=== PATIENT | female | born 1955 | race Caucasian/White ===

== ENCOUNTER 2019-11-11 13:22 | Inpatient (IN) | payer OTHER ==
[2019-11-11] MEDS ORDERED: Lorazepam 2 MG/ML VIAL ONE ×3 (13:29→16:23)
[2019-11-11] MEDS ORDERED: Haloperidol Lactate 5 MG/ML VIAL ONE (13:33)
[2019-11-11] MEDS ORDERED: diphenhydrAMINE 50 MG/ML VIAL ONE (13:33)
[2019-11-11] MEDS ORDERED: Acetaminophen 650 MG Suppository ONE (13:42)
[2019-11-11] MEDS ORDERED: Vancomycin 1 GM/200 ML BAG ONE (13:42)
[2019-11-11 13:51] LABS: #Lymphocytes 0.9 thou/uL (1.20-3.40); #Monocytes 0.6 thou/uL (0.11-0.59); #Neutrophils 8.7 thou/uL (1.40-6.50); %Basophils 0.2 % (0.0-1.0); %Lymphocytes 8.6 % (21.0-51.0); %Monocytes 5.7 % (0.0-10.0); %Neutrophils 85.5 % (42.0-75.0); Hemoglobin 9.4 g/dL (12.0-16.0); Mean Corpuscular HGB CONC 31.8 g/dL (32.0-36.0); Mean Corpuscular Hemoglobin 25.6 pg (27.0-31.0); Mean Corpuscular Volume 80.3 fL (78.0-98.0); Mean Platelet Volume 10.6 fL (7.4-10.4); Platelet Count 122 thou/uL (130-400); RBC Distribution Width 15.2 % (11.5-14.5); Red Blood Cell (RBC) Count 3.69 mill/uL (4.20-5.40); White Blood Cell (WBC) Count 10.2 thou/uL (4.8-10.8)
[2019-11-11] MEDS ORDERED: Clindamycin/D5W 600 MG in Premix Bag 1 BAG IVPB SCH (14:00)
--- NOTE | 2019-11-11 14:15 | CT ---
Exam: Head CT without contrast HISTORY: Nausea. Vomiting. Diarrhea. Altered mental status COMPARISON: 11/15/2009 FINDINGS: Hemorrhage: No intraparenchymal hemorrhage or extra-axial hematoma. Brain parenchyma: Cortical mcneil-white matter differentiation is preserved. No mass effect or midline shift. Basilar cisterns are patent.Minimal chronic small vessel ischemic changes of white matter Ventricular system: Ventricles and sulci are patent and symmetric. Calvarium: Intact. Sinuses and mastoid air cells: Adequate aeration. IMPRESSION: No acute intracranial process.
[2019-11-11 14:16] LABS: Acetaminophen Less than 6.0 mcg/mL (10.0-30.0); Alcohol Less than 10 mg/dL (Less than 10); Salicylate Less than 8.0 mg/dL (15.0-30.0)
[2019-11-11 14:17] LABS: ALT (SGPT) 36 U/L (8-55); AST (SGOT) 60 U/L (5-34); Albumin 3.5 g/dL (3.4-4.8); Alkaline Phosphatase 127 U/L (40-110); Anion Gap 14 mmol/L (10-20); BUN (Urea Nitrogen) 30 mg/dL (9.8-20.1); Bilirubin, Total 1.9 mg/dL (0.2-1.2); Calc. Creatinine Clearance 0 mL/min (70-130); Calcium 8.9 mg/dL (7.8-10.44); Carbon Dioxide 21 mmol/L (23-31); Chloride 109 mmol/L (98-107); Estimated GFR-MDRD 30; Globulin 3.4 g/dL (2.4-3.5); Glucose 165 mg/dL (80-115); Potassium 4.2 mmol/L (3.5-5.1); Protein, Total 6.9 g/dL (6.0-8.3); Sodium 140 mmol/L (136-145)
--- NOTE | 2019-11-11 14:20 | RAD ---
Chest AP view INDICATION: History of fever COMPARISON: November 28, 2010 FINDINGS: Lungs: There is bilateral perihilar interstitial and groundglass opacities. Cardiac silhouette: There is moderate to prominent cardiomegaly Pulmonary vasculature: There is moderate pulmonary vascular congestion Pleural spaces: There are small bilateral pleural effusions Upper abdomen: No abnormality seen. Osseous structures: There is postprocedural change of a midline sternotomy. No acute fracture or sub luxation demonstrated. Additional findings: None. IMPRESSION: Findings suspicious for [id number] CHF
[2019-11-11 14:23] LABS: Bilirubin Negative (Negative); Blood, Urine Trace (Negative); Clarity Turbid (Clear); Glucose, Urine (Dipstick) Normal (Negative); Ketone, Urine Negative (Negative); Leukocyte Negative Leu/uL (Negative); Nitrite Negative (Negative); Protein, Urine (Dipstick) 300 mg/dL (Neg-Trace); Specific Gravity, Urine 1.017 (1.002-1.036); Squamous Epithelial 0-3 HPF (0-3); Urobilinogen 3 mg/dL (Less than 2); WBC/HPF 0-3 HPF (0-3)
[2019-11-11 14:32] LABS: Amphetamine Not Detected (NotDetected); Barbiturates Screen Not Detected (NotDetected); Benzodiazepine Screen Not Detected (NotDetected); Cocaine Metabolite Screen Detected (NotDetected); Medtox Control Line Valid? VALID (VALID); Medtox Reader # READER 1; Methadone Not Detected (NotDetected); Methamphetamine Not Detected (NotDetected); Opiate Screen Not Detected (NotDetected); Oxycodone Screen Not Detected (NotDetected); Phencyclidine (PCP) Not Detected (NotDetected); THC/Cannabinoid Screen Not Detected (NotDetected); Tricyclic Screen Not Detected (NotDetected)
[2019-11-11 14:36] LABS: Bacteria/HPF None Seen HPF (None Seen)
[2019-11-11 15:41] LABS: SARS-CoV-2 NAA Rapid Test Not Detected (NotDetected)
[2019-11-11 16:43] LABS: Lactic Acid 3.1 mmol/L (0.5-2.2)
[2019-11-11] MEDS ORDERED: Ketorolac Tromethamine 30 MG/ML VIAL ONE (17:15)
[2019-11-11] MEDS ORDERED: Acetaminophen 650 MG Suppository PR PRN (18:54)
[2019-11-11] MEDS ORDERED: Ondansetron ODT 4 MG TAB PO PRN (18:54)
[2019-11-11] MEDS ORDERED: Ketorolac Tromethamine 30 MG/ML VIAL IVP PRN ×2 (18:54→18:57)
[2019-11-11] MEDS ORDERED: Acetaminophen 500 MG TAB PO PRN (18:54)
[2019-11-11] MEDS ORDERED: Ondansetron PF 4 MG/2 ML Vial IVP PRN (18:54)
[2019-11-11] MEDS ORDERED: Sodium Chloride 0.9% 1,000 ML IV SCH ×2 (19:15→20:00)
[2019-11-11] MEDS ORDERED: Aztreonam 2 GM in Sodium Chloride 0.9% 100 ML IVPB SCH (19:15)
[2019-11-11 19:35] LABS: INR-International Normal Ratio 1.9; Prothrombin Time 21.7 sec (12.0-14.7)
[2019-11-11] MEDS: Sodium Chloride 0.9% 1,000 ML IV SCH (20:13)
--- NOTE | 2019-11-11 20:14 | HP ---
PRIMARY CARE PROVIDER: Mariah Iniguez, nurse practitioner, [facility], [place], [place]. CHIEF COMPLAINT: Altered mental status. HISTORY OF PRESENT ILLNESS: This is a 64-year-old female, who presents to [facility] after family became concerned that the patient was confused, staring into space and minimally responsive to voice and tactile stimulation. The provides the majority of the history as well as review of electronic medical record and discussions with the emergency room attending as the patient is currently unable to provide any coherent history due to altered mental status. reports low-grade fever with questionable diarrhea in the last 24 hours. No travel history or exposure per the patient's . The patient began exhibiting symptoms as stated previously in the last 24 hours. No change to her chronic medication regimen or exposure history per family report. No unilateral weakness was noted, but the patient's states she was not acting appropriately, sitting on the couch, sleeping most of the last 24 hours. No history of fall, trauma reported, chest pain, or nausea or vomiting. In the emergency room, the patient underwent general evaluation and was noted with altered mental status as well as combativeness and agitation, requiring chemical sedation with lorazepam, Benadryl, and Haldol. The patient was also given intravenous normal saline x2 L as the patient was exhibiting evidence of hyperthermia with a temperature of 105 degrees Fahrenheit and signs of sepsis. Urine drug screen was also performed showing cocaine metabolites. Due to the concern for infectious process, the patient was given broad-spectrum antibiotic coverage with clindamycin and vancomycin. The patient was transferred to the intermediate care unit for further evaluation and close supervision. PAST MEDICAL HISTORY: 1. Chronic anticoagulation with Coumadin due to aortic valve replacement. 2. Coronary artery disease. 3. Aortic valvular heart disease. 4. Hypertension. 5. Chronic epilepsy. PAST SURGICAL HISTORY: 1. Status post aortic valve replacement x2. 2. Status post pacemaker placement with subsequent removal. 3. Status post hysterectomy. CURRENT MEDICATIONS: 1. Carvedilol 12.5 mg p.o. b.i.d. 2. Lasix 40 mg p.o. b.i.d. 3. Protonix 20 mg p.o. daily. 4. Coumadin 7.5 mg p.o. daily. 5. Zonisamide 200 mg p.o. b.i.d. ALLERGIES: CEPHALOSPORINS, CODEINE, AND PENICILLIN. FAMILY HISTORY: No inheritable diseases per family report. SOCIAL HISTORY: Resides in the [place], [place] area. No current alcohol, tobacco, or illicit drug use. . Full code status per report. REVIEW OF SYSTEMS: Unobtainable due to the patient's altered mental status. PHYSICAL EXAMINATION: VITAL SIGNS: On admission, blood pressure 140/91, pulse 106, respiratory rate 36, temperature 105.5 degrees Fahrenheit rectally, and O2 saturation 96% on room air. GENERAL APPEARANCE: This is a 64-year-old female, obtunded, minimally responsive to painful stimuli, in moderate distress. HEENT: Pupils are equal, round, and reactive to light and accommodation. Extraocular muscles are intact. Pupils are 5 mm and reactive to light and accommodation. No scleral icterus. No conjunctival injection. Nares patent. OP is clear. Teeth in fair repair. Oral mucosa dry. NECK: Supple. No cervical adenopathy. No thyromegaly. No carotid bruits. No JVD appreciated. Right external jugular venous catheter in place. CHEST: Lungs are clear to auscultation bilaterally. Positive tachypnea. CARDIOVASCULAR: S1 and S2 with 2/6 systolic ejection murmur in the right upper sternal border. Distant heart sounds. ABDOMEN: Rounded, soft, nontender, and nondistended. Bowel sounds are positive in all 4 quadrants. There is no hepatosplenomegaly. No abdominal bruits. No rebound or guarding appreciated. EXTREMITIES: Warm and dry with fair turgor. No clubbing, cyanosis, or asymmetric edema appreciated. Pulses palpable distally at the dorsalis pedis, posterior tibial, and popliteal arteries bilaterally. Capillary refill less than 2 seconds. NEUROLOGIC: Obtunded, unresponsive to painful and verbal stimuli. PERTINENT LABORATORY AND X-RAY FINDINGS: Sodium 140, potassium 4.2, chloride 109, CO2 of 21, BUN 30, creatinine 1.71, estimated GFR of 30, glucose 165, lactic acid level ranged between 2.5 to 3.1, and calcium 8.9. Total bilirubin 1.9, AST 60, ALT of 36, and alkaline phosphatase 127. CBC showed a white blood cell count of 10.2, hemoglobin 9.4, hematocrit 30, and platelet count 122 with 86% neutrophils. Urinalysis showed turbid specimen with specific gravity 1.017, positive protein, trace blood. Negative leukocyte esterase, 3+ amorphous crystals. Urine drug screen dated 11/11/2019, positive for cocaine metabolites. COVID-19 not detected on 11/11/2019. Portable chest x-ray dated 11/11/2019, showed bilateral perihilar interstitial prominence. Moderate cardiomegaly. CT of the brain without contrast dated 11/11/2019, showed no acute intracranial process. EKG dated 11/11/2019, by my interpretation shows atrial fibrillation with controlled ventricular response, heart rates in the low 100s. Normal axis. No acute ST-T wave changes appreciated. ASSESSMENT AND PLAN: 1. Sepsis syndrome. Exact etiology unclear. Question of pulmonic versus urinary tract source. We will continue broad-spectrum IV antibiotic therapy with vancomycin 1 g IV q.24 hours with additional aztreonam 2 g IV q.8 hours with additional metronidazole 500 mg IV q.8 hours. Blood and urine cultures pending. Continue general stroke protocol. Continue intravenous normal saline at 125 mL/h. 2. Acute metabolic encephalopathy secondary to sepsis syndrome. We will continue general supportive management as outlined in #1. CT imaging of the brain negative. Continue to monitor serial neuro exams. 3. Acute kidney injury on chronic kidney disease, stage 3. Continue IV fluids as outlined previously. Avoid nephrotoxic agents and limit contrast exposure. Repeat creatinine in the a.m. 4. Chronic atrial fibrillation with chronic anticoagulation. Continue supportive management. Check PT/INR daily. Resume Coumadin when tolerating p.o. intake. 5. Cocaine positive urine drug screen. We will confirm whether the patient has a history of drug use. 6. Chronic normocytic anemia. No current evidence to suggest acute blood loss. Serial H and H monitoring. 7. Prophylaxis. SCDs while in bed. Pepcid 20 mg IV q.12 hours. PT evaluation when able to ambulate. 8. Code status: Full. Surrogate medical decision maker is the patient's spouse. Job ID: [id number]
[2019-11-11 20:20] VITALS: BMI 26.5
[2019-11-11] MEDS ORDERED: Vancomycin HCl 1 GM in Sodium Chloride 0.9% 250 ML 300 ML IVPB SCH (21:00)
[2019-11-11] MEDS ORDERED: Famotidine/PF 20 mg/2ml Vial SLOW IVP SCH (21:00)
[2019-11-11] MEDS: metroNIDAZOLE 500 MG in Premix Bag 1 BAG IVPB SCH (21:22)
[2019-11-11] MEDS: Famotidine/PF 20 mg/2ml Vial SLOW IVP SCH (21:22)
[2019-11-12] MEDS ORDERED: Vancomycin 1 GM in Premix Bag 1 BAG IVPB SCH (02:00)
[2019-11-12 03:48] LABS: INR-International Normal Ratio 1.9; Prothrombin Time 21.7 sec (12.0-14.7)
[2019-11-12 03:51] LABS: ALT (SGPT) 35 U/L (8-55); AST (SGOT) 49 U/L (5-34); Albumin 2.9 g/dL (3.4-4.8); Alkaline Phosphatase 102 U/L (40-110); Anion Gap 16 mmol/L (10-20); BUN (Urea Nitrogen) 39 mg/dL (9.8-20.1); Bilirubin, Total 1.8 mg/dL (0.2-1.2); Calc. Creatinine Clearance 29 mL/min (70-130); Calcium 7.9 mg/dL (7.8-10.44); Carbon Dioxide 15 mmol/L (23-31); Chloride 114 mmol/L (98-107); Estimated GFR-MDRD 25; Globulin 2.7 g/dL (2.4-3.5); Glucose 135 mg/dL (80-115); Magnesium 1.7 mg/dL (1.6-2.6); Potassium 3.5 mmol/L (3.5-5.1); Protein, Total 5.6 g/dL (6.0-8.3); Sodium 141 mmol/L (136-145)
[2019-11-12] MEDS ORDERED: Aztreonam 2 GM in Sodium Chloride 0.9% 100 ML IVPB SCH (04:00)
[2019-11-12 05:06] LABS: Band 14 % (5-11); Hemoglobin 8.2 g/dL (12.0-16.0); Hypochromia SLIGHT = 6-15 cells (100X) (0-5/hpf); Lymphocytes 5 % (21-51); MDiff Complete? YES; Mean Corpuscular HGB CONC 32.1 g/dL (32.0-36.0); Mean Corpuscular Volume 81.1 fL (78.0-98.0); Mean Platelet Volume 11.3 fL (7.4-10.4); Monocytes 2 % (0-10); Neutrophil 79 % (42-75); Platelet Count 71 thou/uL (130-400); Platelet Morphology Comment Appears Decreased; RBC Distribution Width 15.1 % (11.5-14.5); Red Blood Cell (RBC) Count 3.16 mill/uL (4.20-5.40)
[2019-11-12] MEDS: metroNIDAZOLE 500 MG in Premix Bag 1 BAG IVPB SCH ×3 (05:44→20:17)
[2019-11-12] MEDS ORDERED: Lorazepam 2 MG/ML VIAL SLOW IVP SCH (05:45)
[2019-11-12] MEDS: Sodium Chloride 0.9% 1,000 ML IV SCH ×3 (05:46→20:17)
[2019-11-12] MEDS ORDERED: Magnesium 2 GM/50 ML 2 GM in Premix Bag 1 BAG IVPB SCH (06:30)
[2019-11-12] MEDS ORDERED: Lorazepam 2 MG/ML VIAL SLOW IVP PRN ×2 (10:30→17:28)
[2019-11-12] MEDS ORDERED: Furosemide 20 MG/2 ML VIAL SLOW IVP SCH (10:45)
--- NOTE | 2019-11-12 10:47 | PDOC.HOSPP ---
- Subjective Encounter Date: 11/12/19 Encounter Time: 10:35 Subjective: f/u for AMS/Sepsis/Dyspnea with 2/2 blood cx showing gm+ cocci receiving Vancomycin/Aztreonam/Metronidazole. nursing reports SOB/cardiac ectopy, agitation and remains in soft restraints. - Objective Vital Signs & Weight: Vital Signs (12 hours) Temp 11/12/19 07:31 98.0 F 11/12/19 04:00 98.4 F 11/12/19 00:05 97.0 F L Weight Weight 145 lb Most Recent Monitor Data Heart Rate from ECG 115 NIBP 156/112 NIBP BP-Mean 126 Respiration from ECG 32 SpO2 100 I&O: 11/11/19 11/12/19 11/13/19 06:59 06:59 06:59 Intake Total 2374 Output Total 300 Balance 2074 Result Diagrams: 11/12/19 03:17 11/12/19 03:17 Additional Labs: Microbiology 11/11/19 13:55 Venous blood - Left Arm Blood Culture - Preliminary Staphylococcus aureus 11/11/19 13:36 Venous blood - Right Arm Blood Culture - Preliminary Gram Positive Cocci Laboratory Tests 11/11/19 11/11/19 11/11/19 13:36 13:36 13:36 Hgb 9.4 L Plt Count 122 L Neutrophils % 85.5 H Neutrophils % (Manual) Band Neuts % (Manual) INR Carbon Dioxide 21 L BUN 30 H Creatinine 1.71 H Lactic Acid 2.5 H Magnesium Total Bilirubin 1.9 H AST 60 H U Cocaine Metab Screen SARS-CoV-2 Rap RNA(RT-PCR) 11/11/19 11/11/19 11/11/19 13:50 14:30 16:17 Hgb Plt Count Neutrophils % Neutrophils % (Manual) Band Neuts % (Manual) INR Carbon Dioxide BUN Creatinine Lactic Acid 3.1 H Magnesium Total Bilirubin AST U Cocaine Metab Screen Detected H SARS-CoV-2 Rap RNA(RT-PCR) Not Detected 11/11/19 11/11/19 11/12/19 19:13 19:13 03:17 Hgb Plt Count Neutrophils % Neutrophils % (Manual) Band Neuts % (Manual) INR 1.9 Carbon Dioxide BUN Creatinine Lactic Acid 1.0 Magnesium 1.7 Total Bilirubin 1.8 H AST 49 H U Cocaine Metab Screen SARS-CoV-2 Rap RNA(RT-PCR) 11/12/19 11/12/19 03:17 03:17 Hgb Plt Count Neutrophils % Neutrophils % (Manual) 79 H Band Neuts % (Manual) 14 H INR 1.9 Carbon Dioxide BUN Creatinine Lactic Acid Magnesium Total Bilirubin AST U Cocaine Metab Screen SARS-CoV-2 Rap RNA(RT-PCR) Radiology Reviewed by me: Yes (PCXR - pending) EKG Reviewed by me: Yes (Tele - ? A-fib, bigeminy) Hospitalist ROS - Medication Medications: Active Medications Generic Name Dose Route Start Last Admin Trade Name Freq PRN Reason Stop Dose Admin Famotidine 20 mg 11/11/19 21:00 11/11/19 21:22 Pepcid SLOW IVP 20 mg 2100 ROBERT Administration Aztreonam 2 gm/ Sodium 100 mls @ 100 mls/hr 11/12/19 04:00 11/12/19 03:56 Chloride IVPB 100 mls 0400,1200,2000 ROBERT Administration Metronidazole 500 mg/ Device 100 mls @ 100 mls/hr 11/11/19 21:00 11/12/19 05: 44 IVPB 100 mls 0500,1300,2100 ROBERT Administration Sodium Chloride 1,000 mls @ 125 mls/hr 11/11/19 20:00 11/12/19 05:46 Normal Saline 0.9% IV Not Given .Q8H ROBERT Vancomycin HCl 1 gm/ Device 200 mls @ 133.333 mls/hr 11/12/19 02:00 11/12/19 02:20 IVPB 200 mls 0200 ROBERT Administration Ketorolac Tromethamine 15 mg 11/11/19 18:57 11/11/19 21:23 Toradol IVP 11/16/19 18:55 15 mg Q6H PRN Administration Pain - Exam General Appearance: ill appearing General - other findings: opens eyes, responds to questions briefly Eye: PERRL, anicteric sclera ENT: normocephalic atraumatic, no oropharyngeal lesions Neck: supple, symmetric, no JVD, no thyromegaly, no lymphadenopathy Heart: no gallops, no rubs, normal peripheral pulses, irregular Heart - other findings: S1, S2 Respiratory: tachypneic Respiratory - other findings: diminished bilat, occ wheeze Gastrointestinal: soft, non-tender, non-distended, normal bowel sounds, no palpable masses Gastrointestinal - other findings: Hernandez with dark urine/sediment Extremities: no cyanosis, no clubbing, no edema Skin: normal turgor, no lesions Neurological: cranial nerve grossly intact Musculoskeletal: generalized weakness Psychiatric: oriented to person, flat affect, somnolent Hosp A/P (1) Sepsis Code(s): A41.9 - SEPSIS, UNSPECIFIED ORGANISM Status: Acute Plan: Gm + cocci and staph spp on initial blood cx, continue Vancomycin/Aztreonam/ Metronidazole, IVF's fluids held due to increased dyspnea (2) Acute metabolic encephalopathy Code(s): G93.41 - METABOLIC ENCEPHALOPATHY Status: Acute Plan: Persistent, continue Ativan 1mg IVP q4h PRN (3) Acute dyspnea Code(s): R06.00 - DYSPNEA, UNSPECIFIED Status: Acute Plan: ? etiology, repeat PCXR now, ABG reassuring currently, check BNP, check 2D echo (4) Acute kidney injury superimposed on CKD Code(s): N17.9 - ACUTE KIDNEY FAILURE, UNSPECIFIED; N18.9 - CHRONIC KIDNEY DISEASE, UNSPECIFIED Status: Acute Plan: Worsening level currently, avoid nephrotoxic meds, renal dosing on meds, serial creatinine (5) Metabolic acidosis Code(s): E87.2 - ACIDOSIS Status: Acute Plan: Multifactorial, continue mgmt as outlined above, consider bicarbonate if worsening renal function despite supportive mgmt (6) Cocaine use Code(s): F14.90 - COCAINE USE, UNSPECIFIED, UNCOMPLICATED Status: Acute (7) Chronic anticoagulation Code(s): 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
[2019-11-12 10:49] LABS: Actual Bicarbonate (HCO3a) 13.6 mEq/L (22-28); Base Excess (BEa) -10.3 mEq/L (-2.0 to +3.0); Calcium, Ionized (arterial) 1.16 mmol/L (1.12-1.30); Carboxyhemoglobin (COHb) 0.3 gm% (0.0-3.0); Hemoglobin (Hb) 9.6 g/dL (12.0-16.0); O2 Tension (PaO2), arterial 90.3 mmHg (> 80.0); Potassium - ABG Lab 3.92 mmol/L (3.70-5.30); pH, Arterial 7.37 (7.35-7.45)
[2019-11-12 10:50] LABS: ALV-art Gradient 136.255 (0-20); CO2 Tension 24.1 mmHg (35.0-45.0); Puncture Site RBA
--- NOTE | 2019-11-12 11:21 | RAD ---
Portable frontal chest radiograph: 11/12/2019 COMPARISON: 11/11/2019 HISTORY: Dyspnea FINDINGS: Stable midline sternotomy wires. Stable enlargement of the cardiac silhouette. Pulmonary va scular congestion persists. No pneumothorax is seen. Hazy interstitial opacity in the perihilar regions and both lung bases noted. Small bilateral pleural effusions are suspected, right greater agustin n left, more conspicuous than on the prior exam. IMPRESSION: Findings suggesting pulmonary edema, slightly worsened when compared to the prior exam. S uperimposed perihilar and/or bibasilar infection cannot be excluded. Follow-up to resolution advised.
[2019-11-12] MEDS: Aztreonam 1 GM in Sodium Chloride 0.9% 100 ML IVPB SCH ×2 (11:35→20:15)
[2019-11-12 13:33] LABS: Actual Bicarbonate (HCO3a) 13.9 mEq/L (22-28); Base Excess (BEa) -10.3 mEq/L (-2.0 to +3.0); Calcium, Ionized (arterial) 1.15 mmol/L (1.12-1.30); Carboxyhemoglobin (COHb) 0.3 gm% (0.0-3.0); Hemoglobin (Hb) 9.1 g/dL (12.0-16.0); O2 Tension (PaO2), arterial 114.2 mmHg (> 80.0); Potassium - ABG Lab 3.98 mmol/L (3.70-5.30); pH, Arterial 7.36 (7.35-7.45)
[2019-11-12 13:56] LABS: CO2 Tension 25.4 mmHg (35.0-45.0)
[2019-11-12 13:57] LABS: Puncture Site RRA
[2019-11-12] MEDS: Midazolam HCl 2 mg/2 ml Vial ONE ×2 (14:45→14:46)
[2019-11-12] MEDS ORDERED: Propofol 1,000 MG/100 ML VIAL IV ONE (14:48)
--- NOTE | 2019-11-12 16:10 | RAD ---
PORTABLE CHEST ONE VIEW: 11/12/19 at 2:50 p.m. HISTORY: Respiratory failure. COMPARISON: Earlier exam of 01/04 and from same date. FINDINGS: There is an endotracheal tube with tip just below the level of the clavicular heads. The orogastric t ube the tip of which is in the position of the distal esophagus. The remainder of the exam is otherwise stable. Discussed over the telephone with the patient's nurse, Amanda New at 3:49 p.m. POS: OFF
[2019-11-12 16:26] LABS: Actual Bicarbonate (HCO3a) 14.7 mEq/L (22-28); Base Excess (BEa) -10.5 mEq/L (-2.0 to +3.0); CO2 Tension 29.8 mmHg (35.0-45.0); Calcium, Ionized (arterial) 1.17 mmol/L (1.12-1.30); Carboxyhemoglobin (COHb) 0.4 gm% (0.0-3.0); Hemoglobin (Hb) 8.5 g/dL (12.0-16.0); O2 Tension (PaO2), arterial 214.8 mmHg (> 80.0); Potassium - ABG Lab 3.73 mmol/L (3.70-5.30); pH, Arterial 7.31 (7.35-7.45)
[2019-11-12 16:28] LABS: Puncture Site LRA
[2019-11-12] MEDS ORDERED: Rocuronium Bromide 10 MG/ML (10ML VIAL) ONE (16:30)
[2019-11-12] MEDS ORDERED: Amiodarone 450 MG, Admixture Fee 1 EACH in Dextrose 5% in Water 250 ML IVPB SCH (17:00)
[2019-11-12] MEDS ORDERED: Carvedilol 6.25 MG TAB PO SCH (17:00)
[2019-11-12] MEDS ORDERED: Warfarin Sodium 7.5 MG TAB PO SCH (17:00)
[2019-11-12] MEDS ORDERED: Ventilator Sedation Protocol 1 EACH FS ONE (17:14)
[2019-11-12] MEDS ORDERED: Amiodarone 150 MG, Admixture Fee 1 EACH in Dextrose 5% in Water 100 ML IVPB SCH (17:15)
[2019-11-12] MEDS ORDERED: Propofol 1,000 MG/100 ML VIAL IV PRN (17:28)
[2019-11-12] MEDS ORDERED: Fentanyl BOLUS 250 ML IVPB PRN (17:28)
[2019-11-12] MEDS ORDERED: DISCONTINUE PREVIOUS NARCOTIC PAIN MEDICATIONS AND BENZODIAZEPINES FS SCH (17:28)
[2019-11-12] MEDS ORDERED: Propofol BOLUS 1,000 MG/100 ML VIAL IV PRN (17:28)
[2019-11-12] MEDS ORDERED: fentaNYL Citrate/PF 2,000 MCG in Sodium Chloride 0.9% 60 ML IV SCH (17:28)
[2019-11-12] MEDS ORDERED: Morphine 2 MG/ML VIAL SLOW IVP PRN (17:28)
[2019-11-12] MEDS ORDERED: methylPREDNISolone Sod Succ/PF 125 MG/2 ML VIAL IVP SCH (17:30)
[2019-11-12 18:18] VITALS: BP 95/53
[2019-11-12] MEDS ORDERED: Norepinephrine 8 MG/0.9% NS 250 ML ONE (18:36)
[2019-11-12] MEDS ORDERED: Norepinephrine 8 MG/0.9% NS 250 ML IVPB SCH (19:02)
[2019-11-12] MEDS: Famotidine/PF 20 mg/2ml Vial SLOW IVP SCH (20:17)
[2019-11-12 20:48] VITALS: TEMP 97.8
--- NOTE | 2019-11-12 22:24 | CON ---
DATE OF CONSULTATION: HISTORY OF PRESENT ILLNESS: Ms. Marrero is a 64-year-old female, who apparently presented with altered mental status. The history was provided at the emergency room by the . Apparently, she had a febrile illness with diarrhea for a day prior to admission. The patient apparently presented with a temp of 105. The patient was subsequently admitted. I was consulted because of her presence in the intermediate care unit. PAST MEDICAL HISTORY: Remarkable for, 1. Aortic valve replacement, on Coumadin. 2. History of coronary artery disease. 3. History of hypertension. 4. History of seizure disorder. 5. History of two aortic valve replacements. 6. History of pacemaker and pacemaker removal. 7. Status post hysterectomy. MEDICATIONS: Prior to admission, 1. Coreg. 2. Lasix. 3. Protonix. 4. Coumadin. 5. Zonisamide. ALLERGIES: SHE REPORTS CEPHALOSPORIN, CODEINE, AND PENICILLIN ALLERGIES. FAMILY HISTORY: Negative for lung disease or inheritable diseases. SOCIAL HISTORY: She strongly denied using drugs when I asked her. She very quickly said no but when I asked her about smoking, she hedged on that answer. REVIEW OF SYSTEMS: Unremarkable and not really reliably obtainable because she is still confused when I examined her. PHYSICAL EXAMINATION: VITAL SIGNS: Temperature maximum since admission is this afternoon at 100.1. Blood pressure this morning was 128/58 at 9 o'clock. Heart rate was 115. HEENT: Pupils are equal. Sclerae are anicteric. NECK: Supple without lymphadenopathy. She appears much older than her age. LUNGS: Remarkable for tight wheezes diffusely. HEART: Regular rhythm. Rapid rate. ABDOMEN: Soft and nontender. EXTREMITIES: Without clubbing, cyanosis, or edema. IMAGING DATA: Chest radiograph was suggestive of pulmonary edema. She has sternotomy wires. Chest x-ray is also suggestive of right effusion. She has pulmonary artery engorgement. LABORATORY DATA: White count is 5, hemoglobin 8.2, and platelets 71,000. INR is 1.9. PH this morning 7.37, CO2 of 24, and PO2 of 90. Repeat blood gas at 0120 hours; pH of 7.36, CO2 of 25, and PO2 of 114. Post intubation blood gas; pH of 7.31, CO2 of 29, and PO2 of 214. Creatinine was 1.7 yesterday afternoon and is 2.03 this morning. Bilirubin is 1.8. AST and ALT were barely elevated. BNP was 4858. Albumin 2.9. Urinalysis showed significant proteinuria, 300 mg/dL. Drug screen surprisingly was positive for cocaine. COVID screen was negative. IMPRESSION: Metabolic acidosis, likely is multifactorial. She has never been here in the hospital, so we do not really have a cardiac history on her. Based on her radiograph and her clinical presentation, I suspect that we are dealing with primarily a cardiac issue, but given her temperature of 105 on presentation, a component of pneumonia or another infection cannot be ruled out. Her liver enzymes will need to be monitored. If her INR starts drifting down, she will need to be anticoagulated with Lovenox or heparin or likely heparin given her renal insufficiency. Her renal function will need to be monitored. It is my feeling that she would not tolerate continued observation and I recommended an intubation. This has subsequently been done successfully. She needs an echocardiogram. I will be happy to follow along with the other physicians caring for. Job ID: [id number]
--- NOTE | 2019-11-12 23:45 | EKG ---
Test Reason : Blood Pressure : / mmHG Vent. Rate : 119 BPM Atrial Rate : 119 BPM P-R Int : 000 ms QRS Dur : 110 ms QT Int : 328 ms P-R-T Axes : 000 096 090 degrees QTc Int : 461 ms Atrial fibrillation. Low voltage QRS Possible Anterolateral infarct , age undetermined Abnormal ECG No previous ECGs available Confirmed by Jabari SCHULER ([id number]) on 11/12/2019 11:44:55 PM Referred By: CARLI Confirmed By:Jabari SCHULER
--- NOTE | 2019-11-12 23:56 | EKG ---
Test Reason : Blood Pressure : / mmHG Vent. Rate : 110 BPM Atrial Rate : 110 BPM P-R Int : 216 ms QRS Dur : 114 ms QT Int : 368 ms P-R-T Axes : 000 076 009 degrees QTc Int : 498 ms Sinus tachycardia with 1st degree A-V block with frequent Premature ventricular complexes and Fusion complexes Low voltage QRS Borderline ECG When compared with ECG of 12-NOV-2019 02:32, (Unconfirmed) Sinus rhythm has replaced Junctional rhythm Non-specific change in ST segment in Lateral leads Confirmed by Jabari SCHULER ([id number]) on 11/12/2019 11:56:13 PM Referred By: CARLI Confirmed By:Jabari SCHULER
[2019-11-13] MEDS ORDERED: methylPREDNISolone Sod Succ/PF 125 MG/2 ML VIAL IVP SCH (09:00)
--- NOTE | 2019-11-13 10:29 | CON ---
DATE OF CONSULTATION: 11/12/2019 TIME: 1 hour and 30 minutes. SUBJECTIVE: The patient is a 64-year-old woman with a history aortic valve replacement, who presented with respiratory failure. The patient has previously undergone aortic valve replacement in 1993 and 1994. She also has a history of a pacemaker placement which had to be resected. The patient was apparently in good health until she was admitted with altered mental status. The patient developed respiratory failure and was emergently intubated. The patient unable to give a coherent history. PAST MEDICAL HISTORY: Significant for; 1. Aortic valve replacement. 2. Hypertension. 3. Epilepsy. 4. Seizure. PAST SURGICAL HISTORY: She has had aortic valve replacement x2, hysterectomy. MEDICATIONS: See nursing list. ALLERGIES: CODEINE, PENICILLIN, AND CEPHALOSPORIN. PHYSICAL EXAMINATION: GENERAL: This is an intubated woman. VITAL SIGNS: Blood pressure of 126/80, heart rate is 94. NECK: Shows no jugular venous distention. LUNGS: Have crackles bilateral. HEART: Regular rate and rhythm with a normal S1, S2 with a mechanical click and a 2/6 systolic murmur. ABDOMEN: Nondistended. EXTREMITIES: Trace edema. LABORATORY DATA: Sodium 141, potassium 3.5, chloride 114, bicarb 15, BUN 39, and creatinine 2.0. Her BNP was 4858. White blood cell count 5.0, hemoglobin 8.2, hematocrit 25.6, and her platelets are 71. Her INR was 1.9. Her EKG revealed her to have sinus tachycardia with first-degree AV block and premature ventricular contractions. Telemonitoring revealed nonsustained ventricular tachycardia. IMPRESSION: 1. Respiratory failure. 2. Ventricular tachycardia. 3. History of aortic valve replacement. 4. History of pacemaker placement. 5. Renal failure. 6. Severe cardiomyopathy. PLAN: This patient presents with acute respiratory failure. She developed nonsustained ventricular tachycardia. The patient was treated with IV amiodarone. An emergent echocardiogram was obtained which revealed a severe decrease in left ventricular systolic function. There were no obvious vegetations noted. The patient's blood cultures revealed Staph aureus. It is very possible she has Staph endocarditis. I have recommended the patient be transferred to [facility] for further evaluation and is a very high risk patient. We will follow this patient with you through her hospitalization. CRITICAL CARE TIME: 90 minutes. Job ID: [id number]
--- NOTE | 2019-11-13 13:10 | OP ---
DATE OF PROCEDURE: 11/12/2019 The patient was transferred to critical care unit. She was placed in the sitting position. She was given 1 mg Versed. Once she started to relax with the Versed, a bite block was placed in her mouth. Fiberoptic bronchoscope was at the bedside and was used to introduce a 7.5 endotracheal tube easily through her cords into her trachea. Her tracheobronchial tree was quickly inspected. The right lower lobe, right middle lobe, right upper lobe, left lower lobe, and left upper lobe were free of endobronchial lesions. There were no retained secretions or aspirated gastric contents seen. Post intubation chest x-ray is essentially unchanged. She was sedated for mechanical ventilation after that. CRITICAL CARE TIME: 40 minutes independent of the procedure performed. Job ID: [id number]
--- NOTE | 2019-11-13 14:22 | DIS ---
DATE OF ADMISSION: 11/11/2019 DATE OF DISCHARGE: 11/12/2019 This is a transfer care note. DATE OF TRANSFER: 11/12/2019. DISCHARGE DIAGNOSES: 1. Sepsis syndrome, secondary to Staphylococcus aureus species. 2. Acute metabolic encephalopathy, multifactorial. 3. Acute hypoxic respiratory failure, requiring intubation. 4. Acute kidney injury on chronic kidney disease. 5. Metabolic acidosis. 6. Cocaine use. 7. Chronic anticoagulation with Coumadin. 8. Severe cardiomyopathy with ejection fraction of 10% to 15%. 9. Status post aortic valve replacement x2, on chronic anticoagulation. CONSULTATIONS: 1. Dr. Bazan with Pulmonology/Critical Care Service. 2. Dr. Rafael Boogie with Cardiology Service. PERTINENT LABORATORY AND X-RAY FINDINGS: Creatinine ranged between 1.71 to 2.03. Estimated GFR ranged between 25 to 30. Carbon dioxide level ranged between 15 to 21. Lactic acid level ranged between 1.0 to 3.1. Magnesium level 1.7. AST 49, ALT of 35, total bilirubin 1.8. BNP 4859. CBC showed a white blood cell count ranged between 5.0 to 10.2, hemoglobin ranged between 8.2 to 9.4, platelet count ranged between 71 to 122. PT 21.7, INR 1.9 on 11/12/2019. ABG dated 11/12/2019, showed pH of 7.31, pCO2 of 30, pO2 of 215, bicarbonate 14.7, O2 saturation 99.5% on 50% FiO2 with SIMV. Urine drug screen dated 11/11/2019, positive for cocaine metabolites. Plasma alcohol level less than 10. [id number] RNA PCR not detected, 11/11/2019. Blood cultures x2 out of 2 positive for Staphylococcus aureus. Portable chest x-ray dated 11/11/2019, showed [id number] pulmonary edema. CT of the brain without contrast dated 11/11/2019, showed no acute intracranial process. Portable chest x-ray dated 11/12/2019, showed pulmonary edema, slightly worsened when compared to previous exam. 2D transthoracic echocardiogram dated 11/12/2019, showed ejection fraction of 10% to 15%. Markedly enlarged right atrium. Moderately enlarged right ventricle. Mccormick is akinetic. Mechanical aortic valve with periprosthetic leak. [id number] tricuspid regurgitation. No vegetations noted on the cardiac valves. HOSPITAL COURSE: The patient was initially admitted after presenting with altered mental status with multiple markers consistent with sepsis criteria and syndrome. The exact etiology and source unclear, suspicious for pulmonic etiology. The patient was placed on broad-spectrum IV antibiotic therapy with vancomycin, aztreonam, and metronidazole. The patient received fluid resuscitation per protocol and monitored for clinical response. The patient was also noted with metabolic encephalopathy associated with the presentation, waxing and waning mental status throughout the hospital course. The patient was noted subtherapeutic on INR evaluation in the context of chronic Coumadin therapy and initiated on a heparin infusion. She was initiated on amiodarone infusion after nonsustained ventricular tachycardia was noted on routine telemetry monitoring. The patient was also resumed on home dose of Coreg 12.5 mg b.i.d. The patient underwent evaluation by the Cardiology Service due to the nonsustained ventricular tachycardia, and arrhythmia noted on telemetry monitoring with eventual 2D transthoracic echocardiogram showing overall severely depressed ejection fraction in the 10% to 15% range. Due to the positive blood cultures showing Staphylococcus species in addition to severe cardiomyopathy and prior history of aortic valve replacement, the patient was deemed high risk and recommended for higher level of care. Coordination for [place] with [facility] services was coordinated with [facility] in [place], [place], and the patient was transported at approximately 21:45 p.m. on 11/12/2019 to [facility] in [place], [place]. Job ID: [id number]
--- NOTE | 2019-11-14 13:02 | EKG ---
Test Reason : Blood Pressure : / mmHG Vent. Rate : 107 BPM Atrial Rate : 115 BPM P-R Int : 000 ms QRS Dur : 112 ms QT Int : 376 ms P-R-T Axes : 000 048 108 degrees QTc Int : 501 ms Atrial fibrillation with rapid ventricular response with premature ventricular or aberrantly conducte d complexes Low voltage QRS Septal infarct , age undetermined Abnormal ECG Confirmed by SONAL ABAD ([id number]), slot editor KAY MONTAGUE ([id number]) on 11/14/2019 1:01:40 PM Referred By: Confirmed By:SONAL Smalls
== END 2019-11-12 21:45 | disposition short-term general hospital (02) | DRG 871 ==
LOC: ERS 13:22 → ERHOLD 15:48 → IMCU/EMU 18:14 → CCU 11-12 14:27
PROVIDERS: ADMIT Family Medicine; ATTEND Family Medicine
DX: A41.2 Sepsis due to unspecified staphylococcus (principal); G93.41 Metabolic encephalopathy; N17.9 Acute kidney failure, unspecified; I48.20 Chronic atrial fibrillation, unspecified; E87.2 Acidosis; Z20.828 Contact with and (suspected) exposure to other viral communicable diseases; A41.89 Other specified sepsis; N18.3 Chronic kidney disease, stage 3 (moderate); I25.10 Atherosclerotic heart disease of native coronary artery without angina pectoris; D64.9 Anemia, unspecified; I12.9 Hypertensive chronic kidney disease with stage 1 through stage 4 chronic kidney disease, or unspecified chronic kidney disease; F14.90 Cocaine use, unspecified, uncomplicated; G40.909 Epilepsy, unspecified, not intractable, without status epilepticus; Z95.2 Presence of prosthetic heart valve; Z79.01 Long term (current) use of anticoagulants; Z90.710 Acquired absence of both cervix and uterus; Z88.0 Allergy status to penicillin; Z88.1 Allergy status to other antibiotic agents; Z88.5 Allergy status to narcotic agent
CPT/HCPCS: 31624; 36415; 36416; 70450; 71045; 80053; 80306; 80307; 81003; 81015; 82805; 83605; 83735; 83880; 85007; 85025; 85027; 85610; 87040; 87077; 87149; 93005; 93010; 93306; 94002; 94640; J0282; J1200; J1630; J1885; J1940; J2060; J2250; J2704; J2930; J3010; J3370; J3475; J3490; J7050; J7070; J7620; S0028; U0002

== ENCOUNTER 2019-11-25 12:52 | Inpatient (IN) | payer OTHER ==
[2019-11-25] MEDS ORDERED: Labetalol HCl 100 MG/20 ML VIAL SLOW IVP PRN (20:01)
[2019-11-25] MEDS ORDERED: Ondansetron PF 4 MG/2 ML Vial IVP PRN (20:01)
[2019-11-25] MEDS ORDERED: Acetaminophen 325 MG TAB PO PRN (20:01)
[2019-11-25] MEDS ORDERED: cloNIDine 0.1 MG TAB PO PRN (20:01)
[2019-11-25] MEDS ORDERED: Guaifenesin DM 100-10/5 ML UDCUP PO PRN (20:01)
[2019-11-25] MEDS ORDERED: Promethazine HCl 12.5 MG in Sodium Chloride 0.9% 50 ML IVPB PRN (20:01)
[2019-11-25] MEDS ORDERED: hydrALAZINE 20 MG/ML VIAL SLOW IVP PRN (20:01)
[2019-11-25] MEDS ORDERED: Heparin 25,000 units/D5W 500 ML IVPB SCH (20:15)
[2019-11-25] MEDS ORDERED: Electrolyte Replacement Protoc 1 EACH EACH FS SCH (20:15)
[2019-11-25] MEDS ORDERED: Heparin 10,000 UNITS/ 10 ML VIAL SLOW IVP SCH (20:15)
--- NOTE | 2019-11-25 20:32 | PDOC.HHP ---
Hospitalist HPI - History of Present Illness Endocarditis History of Present Illness: Patient is a 64 year old female with PMH AVR x 2 on chronic anticoagulation, severe cardiomyopathy EF 10-15%, cocaine use, CKD who presents as transfer from [facility] for endocarditis. Patient was originally sent from here to [facility] on Nov 11 for LVAD evaluation, however, it appears she had septic shock and not cardiogenic shock. Workup there revealed infective endocarditis, blood culture positive for MSSA, cefazolin recommended till Dec 10. She has PICC in place, also had cocaine on previous drug screen screen, so they do not want to dc her home for IV abx. On heparin drip for mechanical valve, INR today 1.7. Cr 1.63. She is on Bumex 1 mg daily and amio 200 BID. Vitals stable. Patient in bed, no questions or concerns, wants diet, denies chest pain/shortness of breath. Sheis hard of hearing. Transfer documents reviewed, including medication list, notes, imaging reports. 100 pages total reviewed. Ancef dose is 2g q8h. TTE reveals LVEF 25-29%, mechanical avr. Hospitalist ROS - Review of Systems Constitutional: denies: fever, chills, sweats, weakness, malaise, other Eyes: denies: pain, vision change, conjunctivae inflammation, eyelid inflammation, redness, other ENT: denies: ear pain, ear discharge, nose pain, nose discharge, nose congestion, mouth pain, mouth swelling, throat pain, throat swelling, other Respiratory: denies: cough, dry, shortness of breath, hemoptysis, SOB with excertion, pleuritic pain, sputum, wheezing, other Cardiovascular: denies: chest pain, palpitations, orthopnea, paroxysmal noc. dyspnea, edema, light headedness, other Gastrointestinal: denies: nausea, vomiting, abdominal pain, diarrhea, constipation, melena, hematochezia, other Genitourinary: denies: dysuria, frequency, incontinence, hematuria, retention, other Musculoskeletal: denies: neck pain, shoulder pain, arm pain, back pain, hand pain, leg pain, foot pain, other Skin: denies: rash, lesions, evangelist, bruising, other Neurological: denies: weakness, numbness, incoordination, change in speech, confusion, seizures, other All other systems reviewed; all pertinent +/- noted in HPI/Subj - Medication Medications: medication list reviewed, see transfer documents for full list of discharge medications. Hospitalist History - Past Medical History Other Medical History: AVR on coumadin CAD HTN epilepsy - Past Surgical History Other Surgical History: s/p AVR x 2 pacemaker w/ subsequent removal hysterectomy - Family History Family History: reports: no pertinent history - Social History Smoking Status: Never smoker Alcohol: reports: None Drugs: reports: cocaine - Exam General Appearance: NAD, awake alert Eye: PERRL, anicteric sclera ENT: normocephalic atraumatic, no oropharyngeal lesions, moist mucosa Neck: supple, symmetric, no JVD, no thyromegaly, no lymphadenopathy, no carotid bruit Heart: RRR, no murmur, no gallops, no rubs, normal peripheral pulses Respiratory: CTAB, no wheezes, no rales, no ronchi, normal chest expansion, no tachypnea, normal percussion Gastrointestinal: soft, non-tender, non-distended, normal bowel sounds, no palpable masses, no hepatomegaly, no splenomegaly, no bruit Extremities: no cyanosis, no clubbing, no edema Extremities - other findings: picc in place Skin: normal turgor, no lesions, no rashes Neurological: cranial nerve grossly intact, normal sensation to touch, no weakness, no focal deficits, no new deficit Musculoskeletal: normal tone, normal strength, no muscle wasting Psychiatric: normal affect, normal behavior, A&O x 3 Hospitalist Results - Labs Result Diagrams: 11/25/19 20:25 11/25/19 20:25 Additional comment: all transfer documents, labs, imaging reports reviewed Hospitalist H&P A/P - Plan Plan: Patient is a 64 year old female with PMH AVR x 2 on chronic anticoagulation, severe cardiomyopathy EF 10-15%, cocaine use, CKD who presents as transfer from [facility] for endocarditis. # MSSA endocarditis # chronic systolic heart failure # sepsis secondry to MSSA # history of cocaine abuse Patient is a 64 year old female with PMH AVR x 2 on chronic anticoagulation, severe cardiomyopathy EF 10-15%, cocaine use, CKD who presents as transfer from [facility] for endocarditis. Patient was originally sent from here to [facility] on Nov 11 for LVAD evaluation, however, it appears she had septic shock and not cardiogenic shock. Workup there revealed infective endocarditis, blood culture positive for MSSA, cefazolin recommended till Dec 10. She has PICC in place, also had cocaine on previous drug screen screen, so they do not want to dc her home for IV abx. On heparin drip for mechanical valve, - admit to telemetry - continue ancef 2g q8h until 12/10 per transfer recommendations - continue recommended medications, bumex, amiodarone - heparin drip, continue coumadin and d/c heparin once therapeutic INR reached # CKD III - trend BMP, monitor for overload DVT ppx - heparin GI ppx full code
[2019-11-25 20:39] LABS: #Basophils 0.1 thou/uL (0.0-0.2); #Eosinphils 0.1 thou/uL (0.0-0.7); #Lymphocytes 1.5 thou/uL (1.20-3.40); #Monocytes 0.6 thou/uL (0.11-0.59); %Basophils 1.4 % (0.0-1.0); %Eosinophils 2.1 % (0.0-10.0); %Lymphocytes 23.2 % (21.0-51.0); %Monocytes 9.3 % (0.0-10.0); %Neutrophils 64.1 % (42.0-75.0); Hemoglobin 9.3 g/dL (12.0-16.0); Mean Corpuscular HGB CONC 31.1 g/dL (32.0-36.0); Mean Corpuscular Hemoglobin 25.4 pg (27.0-31.0); Mean Corpuscular Volume 81.9 fL (78.0-98.0); Mean Platelet Volume 10.6 fL (7.4-10.4); Platelet Count 85 thou/uL (130-400); RBC Distribution Width 15.7 % (11.5-14.5); Red Blood Cell (RBC) Count 3.64 mill/uL (4.20-5.40); White Blood Cell (WBC) Count 6.3 thou/uL (4.8-10.8)
[2019-11-25 20:43] LABS: INR-International Normal Ratio 1.9; Prothrombin Time 21.5 sec (12.0-14.7)
[2019-11-25 20:50] LABS: ALT (SGPT) Less than 7 U/L (8-55); AST (SGOT) 25 U/L (5-34); Alkaline Phosphatase 106 U/L (40-110); Anion Gap 13 mmol/L (10-20); BUN (Urea Nitrogen) 20 mg/dL (9.8-20.1); Bilirubin, Direct 0.4 mg/dL (0.1-0.3); Bilirubin, Total 0.6 mg/dL (0.2-1.2); Calc. Creatinine Clearance 37 mL/min (70-130); Calcium 8.7 mg/dL (7.8-10.44); Carbon Dioxide 23 mmol/L (23-31); Chloride 104 mmol/L (98-107); Estimated GFR-MDRD 35; Glucose 81 mg/dL (80-115); Magnesium 1.9 mg/dL (1.6-2.6); Potassium 4.1 mmol/L (3.5-5.1); Protein, Total 6.2 g/dL (6.0-8.3); Sodium 136 mmol/L (136-145)
[2019-11-25 20:51] LABS: Lactic Acid 0.7 mmol/L (0.5-2.2)
[2019-11-25] MEDS ORDERED: Heparin 5,000 UNITS/ML VIAL SC SCH (21:00)
[2019-11-25 21:04] LABS: PTT Greater than 250.0 sec (22.9-36.1)
[2019-11-25] MEDS ORDERED: Electrolyte Replacement Protocol FS PRN (21:15)
[2019-11-25] MEDS: Amiodarone 200 MG TAB PO SCH (21:36)
[2019-11-25] MEDS: Senokot S 8.6-50 MG TAB PO SCH (21:37)
[2019-11-25] MEDS: CEFAZOLIN 2 GM in Premix Bag 1 BAG IVPB SCH (23:38)
[2019-11-26 00:23] LABS: PTT 168.6 sec (22.9-36.1)
[2019-11-26 02:41] LABS: #Eosinphils 0.1 thou/uL (0.0-0.7); #Lymphocytes 1.1 thou/uL (1.20-3.40); #Monocytes 0.4 thou/uL (0.11-0.59); #Neutrophils 3.3 thou/uL (1.40-6.50); %Eosinophils 1.8 % (0.0-10.0); %Lymphocytes 22.7 % (21.0-51.0); %Monocytes 7.8 % (0.0-10.0); %Neutrophils 66.8 % (42.0-75.0); Hemoglobin 8.5 g/dL (12.0-16.0); Mean Corpuscular HGB CONC 30.7 g/dL (32.0-36.0); Mean Corpuscular Volume 81.3 fL (78.0-98.0); Mean Platelet Volume 11.7 fL (7.4-10.4); Platelet Count 81 thou/uL (130-400); RBC Distribution Width 15.7 % (11.5-14.5); Red Blood Cell (RBC) Count 3.42 mill/uL (4.20-5.40)
[2019-11-26 02:48] LABS: INR-International Normal Ratio 1.9; Prothrombin Time 21.3 sec (12.0-14.7)
[2019-11-26 03:10] LABS: Anion Gap 13 mmol/L (10-20); BUN (Urea Nitrogen) 23 mg/dL (9.8-20.1); Calc. Creatinine Clearance 30 mL/min (70-130); Calcium 8.5 mg/dL (7.8-10.44); Carbon Dioxide 23 mmol/L (23-31); Chloride 106 mmol/L (98-107); Estimated GFR-MDRD 27; Glucose 138 mg/dL (80-115); Magnesium 1.9 mg/dL (1.6-2.6); Potassium 4.3 mmol/L (3.5-5.1); Sodium 138 mmol/L (136-145)
[2019-11-26] MEDS ORDERED: Magnesium 2 GM/50 ML 2 GM in Premix Bag 1 BAG IVPB SCH (05:00)
[2019-11-26] MEDS: CEFAZOLIN 2 GM in Premix Bag 1 BAG IVPB SCH ×3 (05:34→21:40)
[2019-11-26] MEDS ORDERED: Lidocaine 5% Patch TD SCH (09:00)
[2019-11-26] MEDS: Bumetanide 1 MG TAB PO SCH (09:08)
[2019-11-26] MEDS: Folic Acid 1 MG TAB PO SCH (09:08)
[2019-11-26] MEDS: Thiamine 100 MG TAB PO SCH (09:08)
[2019-11-26] MEDS: Gabapentin 100 MG CAP PO SCH ×3 (09:09→21:39)
[2019-11-26] MEDS: Senokot S 8.6-50 MG TAB PO SCH ×2 (09:09→21:39)
[2019-11-26] MEDS: Amiodarone 200 MG TAB PO SCH ×2 (09:12→21:39)
[2019-11-26] MEDS: Aripiprazole 10 MG TAB PO SCH (09:12)
[2019-11-26] MEDS: Polyethylene Glycol 3350 17 GM Packet PO SCH (09:14)
[2019-11-26 10:29] LABS: PTT 135.2 sec (22.9-36.1)
[2019-11-26] MEDS ORDERED: Zonisamide 100 MG CAP PO SCH (12:00)
[2019-11-26] MEDS ORDERED: Warfarin Sodium 5 MG TAB PO SCH (17:00)
--- NOTE | 2019-11-26 17:01 | PDOC.HOSPP ---
- Subjective Encounter Date: 11/26/19 Encounter Time: 07:00 Subjective: Patient seen for follow-up regarding infective endocarditis. Denies fevers or chills. Denies nausea or vomiting. - Objective Vital Signs & Weight: Vital Signs (12 hours) Temp Pulse Resp BP Pulse Ox 11/26/19 12:15 98.6 F 83 16 134/73 99 11/26/19 07:05 97.7 F 76 16 120/76 97 Weight Admit Weight 136 lb 3.2 oz Weight 136 lb 3.2 oz Result Diagrams: 11/26/19 02:32 11/26/19 02:32 Additional Labs: I reviewed patient's labs and MAR Hospitalist ROS - Review of Systems Constitutional: reports: weakness Respiratory: denies: cough, shortness of breath, SOB with excertion, pleuritic pain, wheezing Cardiovascular: denies: chest pain, palpitations, orthopnea, paroxysmal noc. dy spnea, edema, light headedness Gastrointestinal: denies: nausea, vomiting, abdominal pain, diarrhea, constipation, melena, hematochezia Genitourinary: denies: dysuria, frequency, incontinence, hematuria, retention Musculoskeletal: denies: neck pain, shoulder pain, arm pain, back pain, hand pain, leg pain, foot pain, other - Medication Medications: Active Medications Generic Name Dose Route Start Last Admin Trade Name Freq PRN Reason Stop Dose Admin Amiodarone HCl 200 mg 11/25/19 21:00 11/26/19 09:12 Amiodarone 200 Mg Tab PO 200 mg BID ROBERT Administration Aripiprazole 5 mg 11/26/19 09:00 11/26/19 09:12 Aripiprazole 10 Mg Tab PO 5 mg DAILY ROBERT Administration Bumetanide 1 mg 11/26/19 09:00 11/26/19 09:08 Bumetanide 1 Mg Tab PO 1 mg DAILY ROBERT Administration Folic Acid 1 mg 11/26/19 09:00 11/26/19 09:08 Folic Acid 1 Mg Tab PO 1 mg DAILY ROBERT Administration Gabapentin 100 mg 11/26/19 09:00 11/26/19 15:06 Gabapentin 100 Mg Cap PO 100 mg TID ROBERT Administration Heparin Sodium/Dextrose 500 mls @ 0 mls/hr 11/25/19 20:15 11/26/19 03:21 Heparin 25,000 Units/D5w IVPB 500 mls INF ROBERT Administration Protocol Per Protocol Cefazolin Sodium/Dextrose 2 gm 50 mls @ 100 mls/hr 11/25/19 22:00 11/26/19 15:06 / Device IVPB 12/11/19 20:00 50 mls Q8HR ROBERT Administration Pantoprazole Sodium 40 mg 11/26/19 09:00 11/26/19 09:08 Pantoprazole 40 Mg Tab PO 40 mg DAILY ROBERT Administration Polyethylene Glycol 17 gm 11/26/19 09:00 11/26/19 09:14 Polyethylene Glycol 3350 17 Gm Packet PO Not Given DAILY ROBERT Senna/Docusate Sodium 1 tab 11/25/19 21:00 11/26/19 09:09 Senokot S 8.6-50 Mg Tab PO 1 tab BID ROBERT Administration Thiamine HCl 100 mg 11/26/19 09:00 11/26/19 09:08 Thiamine 100 Mg Tab PO 100 mg DAILY ROBERT Administration - Exam General Appearance: awake alert Eye: anicteric sclera ENT: normocephalic atraumatic Neck: supple, symmetric, no thyromegaly, no lymphadenopathy Heart: RRR, no gallops, no rubs Respiratory: CTAB Gastrointestinal: soft, non-tender, non-distended, normal bowel sounds Extremities: no cyanosis Skin: no rashes Psychiatric: normal affect, normal behavior, oriented to person, oriented to place Hosp A/P - Plan # MSSA endocarditis # chronic systolic heart failure # sepsis secondry to MSSA # history of cocaine abuse -Patient is being monitored on telemetry, continue. -Patient to have ancef 2g q8h until 12/10 - continue recommended medications, bumex, amiodarone --INR is 1.9 today, continue warfarin with bridging with heparin drip. Pharmacy consulted for warfarin management.
[2019-11-26] MEDS: Lidocaine Patch Removal TOP SCH (21:39)
[2019-11-26] MEDS: Zonisamide 100 MG CAP PO SCH (21:39)
[2019-11-27] MEDS: CEFAZOLIN 2 GM in Premix Bag 1 BAG IVPB SCH ×2 (05:09→20:35)
[2019-11-27 05:57] LABS: #Eosinphils 0.1 thou/uL (0.0-0.7); #Lymphocytes 1.2 thou/uL (1.20-3.40); #Monocytes 0.4 thou/uL (0.11-0.59); #Neutrophils 2.6 thou/uL (1.40-6.50); %Basophils 0.7 % (0.0-1.0); %Eosinophils 1.7 % (0.0-10.0); %Lymphocytes 28.2 % (21.0-51.0); %Monocytes 8.9 % (0.0-10.0); %Neutrophils 60.5 % (42.0-75.0); Hemoglobin 8.3 g/dL (12.0-16.0); Mean Corpuscular HGB CONC 31.7 g/dL (32.0-36.0); Mean Corpuscular Hemoglobin 25.9 pg (27.0-31.0); Mean Corpuscular Volume 81.7 fL (78.0-98.0); Mean Platelet Volume 11.2 fL (7.4-10.4); Platelet Count 80 thou/uL (130-400); Red Blood Cell (RBC) Count 3.22 mill/uL (4.20-5.40); White Blood Cell (WBC) Count 4.3 thou/uL (4.8-10.8)
[2019-11-27 06:01] LABS: INR-International Normal Ratio 1.9; Prothrombin Time 21.4 sec (12.0-14.7)
[2019-11-27 06:14] LABS: Anion Gap 13 mmol/L (10-20); BUN (Urea Nitrogen) 24 mg/dL (9.8-20.1); Calc. Creatinine Clearance 35 mL/min (70-130); Calcium 8.6 mg/dL (7.8-10.44); Carbon Dioxide 23 mmol/L (23-31); Chloride 105 mmol/L (98-107); Estimated GFR-MDRD 32; Glucose 99 mg/dL (80-115); Magnesium 1.8 mg/dL (1.6-2.6); Potassium 4.1 mmol/L (3.5-5.1); Sodium 137 mmol/L (136-145)
[2019-11-27] MEDS ORDERED: Magnesium 2 GM/50 ML 2 GM in Premix Bag 1 BAG IVPB SCH (06:30)
[2019-11-27] MEDS: Lidocaine 5% Patch TD SCH (08:39)
[2019-11-27] MEDS: Senokot S 8.6-50 MG TAB PO SCH ×2 (08:39→20:32)
[2019-11-27] MEDS: Gabapentin 100 MG CAP PO SCH ×3 (08:39→20:32)
[2019-11-27] MEDS: Aripiprazole 10 MG TAB PO SCH (08:39)
[2019-11-27] MEDS: Folic Acid 1 MG TAB PO SCH (08:41)
[2019-11-27] MEDS: Amiodarone 200 MG TAB PO SCH ×2 (08:41→20:32)
[2019-11-27] MEDS: Thiamine 100 MG TAB PO SCH (08:41)
[2019-11-27] MEDS: Bumetanide 1 MG TAB PO SCH (08:41)
[2019-11-27] MEDS: Zonisamide 100 MG CAP PO SCH ×2 (08:41→20:31)
[2019-11-27] MEDS: Polyethylene Glycol 3350 17 GM Packet PO SCH (08:41)
--- NOTE | 2019-11-27 14:53 | PDOC.HOSPP ---
- Subjective Encounter Date: 11/27/19 Encounter Time: 07:30 Subjective: Patient seen for follow-up for infective endocarditis. She complains of headache. - Objective Vital Signs & Weight: Vital Signs (12 hours) Temp Pulse Resp BP Pulse Ox 11/27/19 11:05 97.7 F 68 16 99/54 L 100 11/27/19 07:01 97.7 F 84 16 113/74 96 11/27/19 03:26 98.2 F 87 16 108/71 98 Weight Admit Weight 136 lb 3.2 oz Weight 136 lb 3.2 oz Result Diagrams: 11/27/19 05:32 11/27/19 05:32 Additional Labs: I reviewed patient's labs and MAR EKG Reviewed by me: Yes (Telemetry: Normal sinus rhythm) Hospitalist ROS - Review of Systems Respiratory: denies: cough, dry, shortness of breath, hemoptysis, SOB with excertion, pleuritic pain, sputum, wheezing Cardiovascular: denies: chest pain, palpitations, orthopnea, paroxysmal noc. dyspnea, edema, light headedness Musculoskeletal: reports: other (Headache) - Medication Medications: Active Medications Generic Name Dose Route Start Last Admin Trade Name Freq PRN Reason Stop Dose Admin Acetaminophen 650 mg 11/25/19 20:01 11/27/19 08:47 Acetaminophen 325 Mg Tab PO 650 mg Q4H PRN Administration Headache/Fever/Mild Pain (1-3) Amiodarone HCl 200 mg 11/25/19 21:00 11/27/19 08:41 Amiodarone 200 Mg Tab PO 200 mg BID ROBERT Administration Aripiprazole 5 mg 11/26/19 09:00 11/27/19 08:39 Aripiprazole 10 Mg Tab PO 5 mg DAILY ROBERT Administration Bumetanide 1 mg 11/26/19 09:00 11/27/19 08:41 Bumetanide 1 Mg Tab PO 1 mg DAILY ROBERT Administration Folic Acid 1 mg 11/26/19 09:00 11/27/19 08:41 Folic Acid 1 Mg Tab PO 1 mg DAILY ROBERT Administration Gabapentin 100 mg 11/26/19 09:00 11/27/19 14:30 Gabapentin 100 Mg Cap PO 100 mg TID ROBERT Administration Heparin Sodium/Dextrose 500 mls @ 0 mls/hr 11/25/19 20:15 11/26/19 03:21 Heparin 25,000 Units/D5w IVPB 500 mls INF ROBERT Administration Protocol Per Protocol Lidocaine 1 patch 11/27/19 09:00 11/27/19 08:39 Lidocaine 5% Patch TD 1 patch DAILY ROBERT Administration Miscellaneous Medication 1 each 11/26/19 21:00 11/26/19 21:39 Lidocaine Patch Removal TOP 1 each 2100 ROBERT Administration Pantoprazole Sodium 40 mg 11/26/19 09:00 11/27/19 08:41 Pantoprazole 40 Mg Tab PO 40 mg DAILY ROBERT Administration Polyethylene Glycol 17 gm 11/26/19 09:00 11/27/19 08:41 Polyethylene Glycol 3350 17 Gm Packet PO Not Given DAILY ROBERT Senna/Docusate Sodium 1 tab 11/25/19 21:00 11/27/19 08:39 Senokot S 8.6-50 Mg Tab PO 1 tab BID ROBERT Administration Sodium Chloride 10 ml 11/27/19 09:00 11/27/19 08:39 Flush - Normal Saline 10 Ml Syringe IVF 10 ml Q12HR ROBERT Administration Thiamine HCl 100 mg 11/26/19 09:00 11/27/19 08:41 Thiamine 100 Mg Tab PO 100 mg DAILY ROBERT Administration Zonisamide 100 mg 11/26/19 21:00 11/27/19 08:41 Zonisamide 100 Mg Cap PO 100 mg BID ROBERT Administration - Exam General Appearance: awake alert Eye: anicteric sclera ENT: normocephalic atraumatic Neck: supple Heart: RRR Respiratory: CTAB Gastrointestinal: soft, non-tender Extremities: no cyanosis Skin: no rashes Psychiatric: normal affect, normal behavior Hosp A/P - Plan # MSSA endocarditis # chronic systolic heart failure # sepsis secondry to MSSA # history of cocaine abuse #headache -Check CT brain to rule out intracranial bleed, since patient is on anticoagulation. -Continue to monitor on telemetry. -Continue ancef 2g q8h until 12/10 --INR is still subtherapeutic at 1.9 today, continue warfarin with bridging with heparin drip.
--- NOTE | 2019-11-27 16:08 | CT ---
CT Brain WO Con: 11/27/2019 4:03 PM CLINICAL HISTORY: History of anticoagulation and headache. IMAGING TECHNIQUE: Multiple CT images were obtained of the brain without IV contrast. COMPARISON: Prior exam dated November 11, 2019 FINDINGS: BRAIN: Evidence of acute infarct: None. Evidence of chronic ischemic change:There is mild chronic small vessel white matter ischemic change. There are remote lacunar infarcts involving the bilateral cerebellar hemispheres. There is a remote cortical-based infarct involving inferior left cerebellum. Evidence of intracranial hemorrhage: None. Evidence of midline shift: Third ventricle and septum pellucidum are midline. Ventricles: Normal. No hydrocephalus. SKULL: Intact. VISUALIZED PARANASAL SINUSES: Clear. MASTOID AIR CELLS: Clear. EXTRACRANIAL SOFT TISSUES: Normal. IMPRESSION: No acute intracranial abnormality.
[2019-11-27] MEDS: Warfarin Sodium 7.5 MG TAB PO SCH (17:04)
--- NOTE | 2019-11-27 19:19 | CON ---
DATE OF CONSULTATION: HISTORY OF PRESENT ILLNESS: A 64-year-old woman, who presents for evaluation of sepsis and a cardiomyopathy. The patient has a history of two aortic valve replacement. She was initially seen on November 11 in septic shock. The patient was transferred to [facility]. She has been in the hospital for the past two weeks. The patient was found to have positive cultures for Staphylococcus. The patient subsequently underwent a EMMA, which revealed a mechanical aortic valve with no evidence of vegetations. The patient underwent a complete cardiac evaluation and no source was identified. The patient underwent a followup echocardiogram, which revealed her to have an ejection fraction of 35% to 39%. The patient was treated with IV antibiotics. She was transferred for further evaluation. The patient denies having any chest discomfort or dyspnea. PAST MEDICAL HISTORY: 1. Cardiomyopathy. 2. Aortic valve replacement. 3. Hypertension. 4. Seizure disorder. 5. She has a history of pacemaker placement, which was removed. PAST SURGICAL HISTORY: Aortic valve replacement, hysterectomy. ALLERGIES: CEPHALOSPORIN, CODEINE, PENICILLIN ,STATIN THERAPY AND IODINE. FAMILY HISTORY: No strong family history of heart disease. MEDICATIONS: 1. Amiodarone 200 b.i.d. 2. Abilify 5 daily. 3. Bumex 1 mg daily. 4. Zofran 1 mg daily. 5. Protonix 40 daily. 6. Gabapentin 100 t.i.d. 7. Folic acid 1 mg daily. 8. Coumadin 7.5 mg at bedtime. 9. Zonisamide 100 mg p.o. b.i.d. FAMILY HISTORY: No strong family history of heart disease. PHYSICAL EXAMINATION: GENERAL: This is a well developed woman, in no acute distress. VITAL SIGNS: Blood pressure was 99/54. NECK: Showed no jugular venous distention. LUNGS: Clear to auscultation. HEART: Regular rate and rhythm. Normal S1 and S2 with a crisp aortic click and a 1/6 systolic murmur. ABDOMEN: Nondistended. EXTREMITIES: Showed trace edema. VASCULAR: Radial pulses 2+. LABORATORY DATA: White blood cell count 4.3, hemoglobin 8.3, hematocrit 26.3, and her platelets were 80. Sodium was 137, potassium 4.1, chloride 105, bicarb 23, BUN 24, and creatinine was 1.6. INR was 1.9. IMPRESSION: 1. Sepsis. 2. History of aortic valve replacement x2. 3. History of cardiomyopathy. 4. Renal insufficiency. 5. Pancytopenia. 6. Seizure disorder. This patient presented with a severe cardiomyopathy and sepsis. She had shown improvement in her left ventricular function while she was in [facility]. From a cardiac standpoint, she is hemodynamically stable. Her blood pressure is low. We will continue amiodarone. We will obtain an ID consultation for evaluation and length of course of antibiotic therapy. We will follow this patient with you through her hospitalization. Job ID: [id number] [facility]
--- NOTE | 2019-11-27 19:42 | CON ---
DATE OF CONSULTATION: 11/27/2019 REASON FOR CONSULTATION: Bacteremia, heart failure, possible endocarditis. HISTORY OF PRESENT ILLNESS: A 64-year-old who initially presented to [facility] Emergency Room on November 10, because of altered mental status, fever, brought by EMS. This was a change of acute onset and there had been no other specific complaints, particularly no fever reported. She was having some pains all over and back pain. On arrival BP was 140/100, pulse 126, respiratory rate 26, O2 saturation 94 and she had some element of agitation. The lung exam was described as normal. Heart exam described as normal as well. Extremities did not have any wounds or other inflammatory change. The patient was diagnosed with sepsis and this was felt to be of unclear etiology. She was noted to have prior valve replacement on chronic anticoagulation. She was subtherapeutic on her INR, developed nonsustained ventricular tachycardia and was started on amiodarone infusion. She was restarted on Coreg as well. A 2D echo showed an EF of 10% to 15%, and she had positive blood cultures and she was transferred to [facility] in [place]. I do not have the records from [facility], but there she was managed as sepsis causing depressed cardiac function. She has been there for the past almost 2 weeks and was treated with antimicrobial therapy and has been transferred back to this hospital to complete treatment. The patient reportedly had a EMMA done, which did not show evidence of vegetations, so the recommendation was to continue cefazolin until December 10, which would be another 2 weeks approximately. A PICC line was inserted. For some reason they did not want to give her treatment in the home setting, because of her positive cocaine in a drug screen, although patient denies any IV drug use. Right now, she is having some back pain intermittently, mostly in the lower back area, intermittent headaches. No sore throat, odynophagia, dysphagia. No dental pain. No dyspnea or cough. No chest pain. No abdominal pain or diarrhea. Voiding without difficulty and no joint symptoms. 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 PAST SURGICAL HISTORY: Aortic valve replacement x2 many years ago, pacemaker and removal, hysterectomy. FAMILY HISTORY: Noncontributory. SOCIAL HISTORY: Never smoker. Has a history of inhaled cocaine use in the past. Lives with in [place]. CURRENT MEDICATIONS: 1. Cordarone. 2. DuoNebs. 3. Abilify. 4. Bumex. 5. Catapres. 6. Folvite. 7. Neurontin. 8. Cefazolin 2 g q.8h. 9. Thiamine. 10. Warfarin. PHYSICAL EXAMINATION: VITAL SIGNS: Afebrile since admission. Other vital signs are normal, O2 saturations are 100% on room air. SKIN: PICC line. No Hernandez catheter. No areas of skin breakdown. No lymphadenopathy. Ocular movements conjugate. Sclerae white. Somewhat pale conjunctivae. Oral cavity with numerous missing teeth, but no oral mucosal lesions. NECK: Supple. No Jugular vein distention. No back tenderness. HEART: S1, S2 with a click of aortic valve, but no murmurs. Regular rate. LUNGS: Clear to auscultation and percussion. ABDOMEN: Soft, not distended. No ascites or organomegaly. No bladder distention. No joint inflammatory activity. No edema. Pulses 1+ in dorsalis pedis. Plantar responses are flexor. No clonus. Moves all extremities equally. Cognitive function appears to be preserved. ENT: She does have chronic hearing impairment and most of the interview was conducted through her , because she needs to read lips for proper understanding. NEPHROLOGY: Kidney function has been chronically decreased in the 30% to 40% range. She is now at 35, GFR estimated. LABORATORY DATA: White cell count 6.3 and now 4.3, hemoglobin 8.3, MCV 81, platelets 80, with a normal differential. INR 1.9. Liver profile, direct bilirubin is 0.4. Other findings normal. Albumin 3.0 and from 11/10 she has 2 sets of blood cultures with Staphylococcus aureus, which is methicillin sensitive. ASSESSMENT: 1. Aortic valve replacement since childhood. 2. Staphylococcus aureus bacteremia of unknown primary site, community-acquired. 3. Sepsis, which led to cardiogenic failure and precipitated transfer to [facility] in [place]. 4. Treated as sepsis-induced cardiogenic failure with improvement following treatment in initial 2 weeks and patient transferred for completion of therapy. DISCUSSION: Reportedly she had a EMMA, which did not show vegetations. Despite of that, the high pretest likelihood for endocarditis would not completely rule out that possibility even in the face of a negative EMMA. The problem with treatment of prostatic valve endocarditis is that she would require additional agents with rifampin and gentamicin for the initial 2 weeks in addition to cefazolin and then oxacillin would be a preferred regimen rather than cefazolin, although cefazolin can be used as well. In her case, the use of aminoglycoside would be associated with a high risk of renal insufficiency and potential end-stage renal disease, so difficult therapeutic choices here, may be at least add rifampin. May need to have a repeat EMMA to reassess the valve before discharge planning. We will need to review the report from [facility] as well. Job ID: [id number] MTDD
[2019-11-27] MEDS: Lidocaine Patch Removal TOP SCH (20:36)
[2019-11-27] MEDS: Rifampin 300 MG CAP PO SCH (21:36)
[2019-11-28 04:31] LABS: #Eosinphils 0.1 thou/uL (0.0-0.7); #Lymphocytes 1.2 thou/uL (1.20-3.40); #Monocytes 0.4 thou/uL (0.11-0.59); #Neutrophils 2.5 thou/uL (1.40-6.50); %Basophils 1.1 % (0.0-1.0); %Lymphocytes 28.6 % (21.0-51.0); %Monocytes 9.2 % (0.0-10.0); %Neutrophils 59.2 % (42.0-75.0); Hemoglobin 7.9 g/dL (12.0-16.0); Mean Corpuscular HGB CONC 30.9 g/dL (32.0-36.0); Mean Corpuscular Hemoglobin 25.6 pg (27.0-31.0); Mean Platelet Volume 11.3 fL (7.4-10.4); Platelet Count 89 thou/uL (130-400); RBC Distribution Width 16.1 % (11.5-14.5); Red Blood Cell (RBC) Count 3.08 mill/uL (4.20-5.40); White Blood Cell (WBC) Count 4.3 thou/uL (4.8-10.8)
[2019-11-28 04:34] LABS: INR-International Normal Ratio 2.1; PTT 73.9 sec (22.9-36.1); Prothrombin Time 23.3 sec (12.0-14.7)
[2019-11-28 04:46] LABS: Anion Gap 12 mmol/L (10-20); BUN (Urea Nitrogen) 23 mg/dL (9.8-20.1); Calc. Creatinine Clearance 38 mL/min (70-130); Calcium 8.7 mg/dL (7.8-10.44); Carbon Dioxide 23 mmol/L (23-31); Chloride 104 mmol/L (98-107); Estimated GFR-MDRD 36; Glucose 92 mg/dL (80-115); Potassium 4.3 mmol/L (3.5-5.1); Sodium 135 mmol/L (136-145)
[2019-11-28] MEDS ORDERED: Magnesium 2 GM/50 ML 2 GM in Premix Bag 1 BAG IVPB SCH (06:30)
[2019-11-28] MEDS: Folic Acid 1 MG TAB PO SCH (09:10)
[2019-11-28] MEDS: Bumetanide 1 MG TAB PO SCH (09:10)
[2019-11-28] MEDS: Amiodarone 200 MG TAB PO SCH (09:11)
[2019-11-28] MEDS: Aripiprazole 10 MG TAB PO SCH (09:11)
[2019-11-28] MEDS: Thiamine 100 MG TAB PO SCH (09:11)
[2019-11-28] MEDS: Gabapentin 100 MG CAP PO SCH ×3 (09:11→21:07)
[2019-11-28] MEDS: Lidocaine 5% Patch TD SCH (09:13)
[2019-11-28] MEDS: Senokot S 8.6-50 MG TAB PO SCH ×2 (09:14→21:06)
[2019-11-28] MEDS: Rifampin 300 MG CAP PO SCH ×2 (09:14→21:08)
[2019-11-28] MEDS: Polyethylene Glycol 3350 17 GM Packet PO SCH (09:14)
[2019-11-28] MEDS: Zonisamide 100 MG CAP PO SCH ×2 (09:15→21:08)
[2019-11-28] MEDS: CEFAZOLIN 2 GM in Premix Bag 1 BAG IVPB SCH ×2 (09:16→21:09)
--- NOTE | 2019-11-28 15:51 | PDOC.HOSPP ---
- Subjective Encounter Date: 11/28/19 Encounter Time: 14:30 Subjective: Patient seen and examined for bacteremia. Denies any fever, chills, nausea, vomiting or altered mentation - Objective Vital Signs & Weight: Vital Signs (12 hours) Temp Pulse Resp BP Pulse Ox 11/28/19 11:00 98.0 F 80 16 111/63 98 11/28/19 07:40 97.4 F L 78 16 119/64 95 11/28/19 04:00 98.4 F 86 24 H 125/74 99 Weight Admit Weight 136 lb 3.2 oz Weight 136 lb 3.2 oz Result Diagrams: 11/28/19 04:12 11/28/19 04:12 EKG Reviewed by me: Yes (Sinus rhythm on telemetry) Hospitalist ROS - Review of Systems Respiratory: reports: SOB with excertion. denies: cough, dry, shortness of breath, hemoptysis, pleuritic pain, sputum, wheezing, other Cardiovascular: denies: chest pain, palpitations, orthopnea, paroxysmal noc. dyspnea, edema, light headedness, other - Medication Medications: Active Medications Generic Name Dose Route Start Last Admin Trade Name Freq PRN Reason Stop Dose Admin Acetaminophen 650 mg 11/25/19 20:01 11/27/19 08:47 Acetaminophen 325 Mg Tab PO 650 mg Q4H PRN Administration Headache/Fever/Mild Pain (1-3) Amiodarone HCl 200 mg 11/28/19 09:00 11/28/19 09:11 Amiodarone 200 Mg Tab PO 200 mg DAILY ROBERT Administration Aripiprazole 5 mg 11/26/19 09:00 11/28/19 09:11 Aripiprazole 10 Mg Tab PO 5 mg DAILY ROBERT Administration Bumetanide 1 mg 11/26/19 09:00 11/28/19 09:10 Bumetanide 1 Mg Tab PO 1 mg DAILY ROBERT Administration Folic Acid 1 mg 11/26/19 09:00 11/28/19 09:10 Folic Acid 1 Mg Tab PO 1 mg DAILY ROBERT Administration Gabapentin 100 mg 11/26/19 09:00 11/28/19 14:38 Gabapentin 100 Mg Cap PO 100 mg TID ROBERT Administration Cefazolin Sodium/Dextrose 2 gm 50 mls @ 100 mls/hr 11/27/19 21:00 11/28/19 09:16 / Device IVPB 12/11/19 20:00 50 mls Q12HR ROBERT Administration Lidocaine 1 patch 11/27/19 09:00 11/28/19 09:13 Lidocaine 5% Patch TD 1 patch DAILY ROBERT Administration Miscellaneous Medication 1 each 11/26/19 21:00 11/27/19 20:36 Lidocaine Patch Removal TOP 1 each 2100 ROBERT Administration Pantoprazole Sodium 40 mg 11/26/19 09:00 11/28/19 09:10 Pantoprazole 40 Mg Tab PO 40 mg DAILY ROBERT Administration Polyethylene Glycol 17 gm 11/26/19 09:00 11/28/19 09:14 Polyethylene Glycol 3350 17 Gm Packet PO Not Given DAILY ROBERT Rifampin 300 mg 11/27/19 22:00 11/28/19 09:14 Rifampin 300 Mg Cap PO 300 mg 1000,2200 ROBERT Administration Senna/Docusate Sodium 1 tab 11/25/19 21:00 11/28/19 09:14 Senokot S 8.6-50 Mg Tab PO Not Given BID ROBERT Sodium Chloride 10 ml 11/27/19 09:00 11/28/19 09:07 Flush - Normal Saline 10 Ml Syringe IVF 10 ml Q12HR ROBERT Administration Thiamine HCl 100 mg 11/26/19 09:00 11/28/19 09:11 Thiamine 100 Mg Tab PO 100 mg DAILY ROBERT Administration Warfarin Sodium 7.5 mg 11/27/19 17:00 11/27/19 17:04 Warfarin Sodium 7.5 Mg Tab PO 7.5 mg 1700 ROBERT Administration Zonisamide 100 mg 11/26/19 21:00 11/28/19 09:15 Zonisamide 100 Mg Cap PO 100 mg BID ROBERT Administration - Exam General Appearance: ill appearing Neck: supple Heart: RRR, no gallops Respiratory: no wheezes, no rales Gastrointestinal: soft, normal bowel sounds Neurological: no new deficit Musculoskeletal: generalized weakness Hosp A/P (1) Sepsis Code(s): A41.9 - SEPSIS, UNSPECIFIED ORGANISM Status: Acute (2) Bacteremia Code(s): R78.81 - BACTEREMIA Status: Acute (3) Chronic systolic heart failure Code(s): I50.22 - CHRONIC SYSTOLIC (CONGESTIVE) HEART FAILURE Status: Acute (4) Chronic anticoagulation Code(s): Z79.01 - HALFWAY (CURRENT) USE OF ANTICOAGULANTS Status: Chronic (5) Pancytopenia Code(s): D61.818 - OTHER PANCYTOPENIA Status: Acute (6) CKD (chronic kidney disease) stage 3, GFR 30-59 ml/min Code(s): N18.3 - CHRONIC KIDNEY DISEASE, STAGE 3 (MODERATE) Status: Chronic (7) Electrolyte abnormality Code(s): E87.8 - OTH DISORDERS OF ELECTROLYTE AND FLUID BALANCE, NEC Status: Acute (8) Other issues per previous notes - Plan Continue IV Ancef with rifampin per infectious disease. Consult physical therapy. Consult nurse case manager for home health care evaluation including antibiotics set up. Discontinue heparin drip since INR is therapeutic replace magnesium. Recheck labs in a.m. including PT INR. Plan discussed with patient and the family at the bedside Other chronic issueshistory of cocaine abuse, history of recent respiratory failure requiring intubation, history of aortic valve replacement on chronic anticoagulation
[2019-11-28] MEDS: Warfarin Sodium 7.5 MG TAB PO SCH (17:19)
[2019-11-28] MEDS: Lidocaine Patch Removal TOP SCH (21:09)
[2019-11-29 04:36] LABS: Prothrombin Time 30.8 sec (12.0-14.7)
[2019-11-29 04:37] LABS: #Basophils 0.1 thou/uL (0.0-0.2); #Eosinphils 0.1 thou/uL (0.0-0.7); #Lymphocytes 1.2 thou/uL (1.20-3.40); #Monocytes 0.3 thou/uL (0.11-0.59); %Basophils 1.5 % (0.0-1.0); %Eosinophils 1.7 % (0.0-10.0); %Lymphocytes 33.9 % (21.0-51.0); %Monocytes 8.5 % (0.0-10.0); %Neutrophils 54.4 % (42.0-75.0); Hemoglobin 8.7 g/dL (12.0-16.0); Mean Corpuscular HGB CONC 32.1 g/dL (32.0-36.0); Mean Corpuscular Hemoglobin 26.4 pg (27.0-31.0); Mean Corpuscular Volume 82.4 fL (78.0-98.0); Mean Platelet Volume 11.3 fL (7.4-10.4); Platelet Count 67 thou/uL (130-400); RBC Distribution Width 15.8 % (11.5-14.5); White Blood Cell (WBC) Count 3.7 thou/uL (4.8-10.8)
[2019-11-29 04:55] LABS: Anion Gap 13 mmol/L (10-20); BUN (Urea Nitrogen) 23 mg/dL (9.8-20.1); Calc. Creatinine Clearance 37 mL/min (70-130); Calcium 9.2 mg/dL (7.8-10.44); Carbon Dioxide 25 mmol/L (23-31); Chloride 103 mmol/L (98-107); Estimated GFR-MDRD 35; Glucose 99 mg/dL (80-115); Magnesium 2.3 mg/dL (1.6-2.6); Phosphorus 3.2 mg/dL (2.3-4.7); Potassium 4.2 mmol/L (3.5-5.1); Sodium 137 mmol/L (136-145)
[2019-11-29] MEDS: Thiamine 100 MG TAB PO SCH (09:12)
[2019-11-29] MEDS: Amiodarone 200 MG TAB PO SCH (09:12)
[2019-11-29] MEDS: Gabapentin 100 MG CAP PO SCH ×3 (09:12→22:21)
[2019-11-29] MEDS: Bumetanide 1 MG TAB PO SCH (09:12)
[2019-11-29] MEDS: Folic Acid 1 MG TAB PO SCH (09:12)
[2019-11-29] MEDS: Aripiprazole 10 MG TAB PO SCH (09:13)
[2019-11-29] MEDS: Zonisamide 100 MG CAP PO SCH ×2 (09:14→22:21)
[2019-11-29] MEDS: Rifampin 300 MG CAP PO SCH ×2 (09:15→22:21)
[2019-11-29] MEDS: Polyethylene Glycol 3350 17 GM Packet PO SCH (09:15)
[2019-11-29] MEDS: Senokot S 8.6-50 MG TAB PO SCH (09:15)
[2019-11-29] MEDS: Lidocaine 5% Patch TD SCH (09:16)
[2019-11-29] MEDS: CEFAZOLIN 2 GM in Premix Bag 1 BAG IVPB SCH ×2 (09:16→22:22)
--- NOTE | 2019-11-29 11:44 | PDOC.HOSPP ---
- Subjective Encounter Date: 11/29/19 Encounter Time: 09:30 Subjective: Patient seen and examined for sepsis with bacteremia and endocarditis. Denies any new fever, chills, chest pain or shortness of breath. No diarrhea reported - Objective Vital Signs & Weight: Vital Signs (12 hours) Temp Pulse Resp BP Pulse Ox 11/29/19 07:15 97.8 F 82 16 125/80 99 Weight Admit Weight 136 lb 3.2 oz Weight 136 lb 3.2 oz I&O: 11/28/19 11/29/19 11/30/19 06:59 06:59 06:59 Intake Total 1060 Output Total 790 Balance 270 Result Diagrams: 11/29/19 04:02 11/29/19 04:02 Additional Labs: Laboratory Tests 11/29/19 04:02 INR 3.0 EKG Reviewed by me: Yes (Sinus rhythm on telemetry) Hospitalist ROS - Review of Systems Respiratory: denies: cough, dry, shortness of breath, hemoptysis, SOB with excertion, pleuritic pain, sputum, wheezing, other Cardiovascular: denies: chest pain, palpitations, orthopnea, paroxysmal noc. dyspnea, edema, light headedness, other - Medication Medications: Active Medications Generic Name Dose Route Start Last Admin Trade Name Freq PRN Reason Stop Dose Admin Acetaminophen 650 mg 11/25/19 20:01 11/27/19 08:47 Acetaminophen 325 Mg Tab PO 650 mg Q4H PRN Administration Headache/Fever/Mild Pain (1-3) Amiodarone HCl 200 mg 11/28/19 09:00 11/29/19 09:12 Amiodarone 200 Mg Tab PO 200 mg DAILY ROBERT Administration Aripiprazole 5 mg 11/26/19 09:00 11/29/19 09:13 Aripiprazole 10 Mg Tab PO 5 mg DAILY ROBERT Administration Bumetanide 1 mg 11/26/19 09:00 11/29/19 09:12 Bumetanide 1 Mg Tab PO 1 mg DAILY ROBERT Administration Folic Acid 1 mg 11/26/19 09:00 11/29/19 09:12 Folic Acid 1 Mg Tab PO 1 mg DAILY ROBERT Administration Gabapentin 100 mg 11/26/19 09:00 11/29/19 09:12 Gabapentin 100 Mg Cap PO 100 mg TID ROBERT Administration Cefazolin Sodium/Dextrose 2 gm 50 mls @ 100 mls/hr 11/27/19 21:00 11/29/19 09:16 / Device IVPB 12/11/19 20:00 50 mls Q12HR ROBERT Administration Lidocaine 1 patch 11/27/19 09:00 11/29/19 09:16 Lidocaine 5% Patch TD 1 patch DAILY ROBERT Administration Miscellaneous Medication 1 each 11/26/19 21:00 11/28/19 21:09 Lidocaine Patch Removal TOP 1 each 2100 ROBERT Administration Pantoprazole Sodium 40 mg 11/26/19 09:00 11/29/19 09:12 Pantoprazole 40 Mg Tab PO 40 mg DAILY ROBERT Administration Polyethylene Glycol 17 gm 11/26/19 09:00 11/29/19 09:15 Polyethylene Glycol 3350 17 Gm Packet PO Not Given DAILY ROBERT Rifampin 300 mg 11/27/19 22:00 11/29/19 09:15 Rifampin 300 Mg Cap PO 300 mg 1000,2200 ROBERT Administration Senna/Docusate Sodium 1 tab 11/25/19 21:00 11/29/19 09:15 Senokot S 8.6-50 Mg Tab PO Not Given BID ROBERT Sodium Chloride 10 ml 11/27/19 09:00 11/29/19 09:15 Flush - Normal Saline 10 Ml Syringe IVF 10 ml Q12HR ROBERT Administration Thiamine HCl 100 mg 11/26/19 09:00 11/29/19 09:12 Thiamine 100 Mg Tab PO 100 mg DAILY ROBERT Administration Zonisamide 100 mg 11/26/19 21:00 11/29/19 09:14 Zonisamide 100 Mg Cap PO 100 mg BID ROBERT Administration - Exam General Appearance: NAD Neck: supple, no JVD Heart: no gallops, no rubs Respiratory: no wheezes, no ronchi Gastrointestinal: non-tender, normal bowel sounds Neurological: no new deficit Hosp A/P (1) Sepsis Code(s): A41.9 - SEPSIS, UNSPECIFIED ORGANISM Status: Acute (2) Bacteremia Code(s): R78.81 - BACTEREMIA Status: Acute (3) Chronic systolic heart failure Code(s): I50.22 - CHRONIC SYSTOLIC (CONGESTIVE) HEART FAILURE Status: Acute (4) Chronic anticoagulation Code(s): Z79.01 - PIT CLERK (CURRENT) USE OF ANTICOAGULANTS Status: Chronic (5) Pancytopenia Code(s): D61.818 - OTHER PANCYTOPENIA Status: Acute (6) CKD (chronic kidney disease) stage 3, GFR 30-59 ml/min Code(s): N18.3 - CHRONIC KIDNEY DISEASE, STAGE 3 (MODERATE) Status: Chronic (7) Electrolyte abnormality Code(s): E87.8 - OTH DISORDERS OF ELECTROLYTE AND FLUID BALANCE, NEC Status: Acute (8) Other issues per previous notes - Plan 11/28 Plan for EMMA in a.m. Warfarin dose reduced to 5 mg daily. Monitor INR. Continue physical therapy. Continue IV Ancef for the rifampin. Continue amiodarone, Bumex, zonisamide and other medications as above. 11/27 Continue IV Ancef with rifampin per infectious disease. Consult physical therap y. Consult comp field case manager for home health care evaluation including antibiotics set up. Discontinue heparin drip since INR is therapeutic. Replace magnesium. Recheck labs in a.m. including PT INR. Plan discussed with patient and the family at the bedside Other chronic issueshistory of cocaine abuse, history of recent respiratory failure requiring intubation, history of aortic valve replacement on chronic anticoagulation
[2019-11-29] MEDS: Cyanocobalamin (Vitamin B-12) 1,000 MCG TAB PO SCH (22:21)
[2019-11-30] MEDS: Lidocaine Patch Removal TOP SCH ×2 (01:36→21:07)
[2019-11-30 04:23] LABS: INR-International Normal Ratio 2.9; Prothrombin Time 30.1 sec (12.0-14.7)
[2019-11-30 04:57] LABS: #Eosinphils 0.1 thou/uL (0.0-0.7); #Lymphocytes 0.9 thou/uL (1.20-3.40); #Monocytes 0.3 thou/uL (0.11-0.59); %Eosinophils 2.2 % (0.0-10.0); %Lymphocytes 27.9 % (21.0-51.0); %Monocytes 8.4 % (0.0-10.0); %Neutrophils 60.6 % (42.0-75.0); Elliptocytes SLIGHT = 2-5 cells (100X) (0-1/hpf); MDiff Complete? YES; Mean Corpuscular HGB CONC 31.9 g/dL (32.0-36.0); Mean Corpuscular Hemoglobin 26.1 pg (27.0-31.0); Mean Corpuscular Volume 82.1 fL (78.0-98.0); Mean Platelet Volume 6.9 fL (7.4-10.4); Platelet Count 58 thou/uL (130-400); Platelet Morphology Comment Appears Decreased; RBC Distribution Width 15.9 % (11.5-14.5); Red Blood Cell (RBC) Count 3.06 mill/uL (4.20-5.40); White Blood Cell (WBC) Count 3.4 thou/uL (4.8-10.8)
[2019-11-30 06:58] LABS: Calcium 8.8 mg/dL (7.8-10.44); Chloride 103 mmol/L (98-107); Potassium 4.3 mmol/L (3.5-5.1); Sodium 136 mmol/L (136-145)
[2019-11-30 06:59] LABS: Glucose 91 mg/dL (80-115)
[2019-11-30 07:00] LABS: Anion Gap 12 mmol/L (10-20); Carbon Dioxide 25 mmol/L (23-31)
[2019-11-30 07:02] LABS: Calc. Creatinine Clearance 40 mL/min (70-130); Estimated GFR-MDRD 37
[2019-11-30 07:03] LABS: BUN (Urea Nitrogen) 23 mg/dL (9.8-20.1)
[2019-11-30 07:04] LABS: Magnesium 1.9 mg/dL (1.6-2.6); Phosphorus 3.9 mg/dL (2.3-4.7)
[2019-11-30] MEDS ORDERED: Magnesium 2 GM/50 ML 2 GM in Premix Bag 1 BAG IVPB SCH (07:45)
[2019-11-30] MEDS ORDERED: Ketamine 50 MG/ML (10ML VIAL) ONE (09:21)
[2019-11-30] MEDS ORDERED: PROPOFOL 200 MG/20 ML VIAL ONE (09:44)
[2019-11-30] MEDS ORDERED: EPHEDRINE 25 MG/5 ML SYRINGE ONE (09:44)
[2019-11-30] MEDS: Thiamine 100 MG TAB PO SCH (11:50)
[2019-11-30] MEDS: Bumetanide 1 MG TAB PO SCH (11:50)
[2019-11-30] MEDS: Senokot S 8.6-50 MG TAB PO SCH (11:50)
[2019-11-30] MEDS: Amiodarone 200 MG TAB PO SCH (11:50)
[2019-11-30] MEDS: Folic Acid 1 MG TAB PO SCH (11:50)
[2019-11-30] MEDS: Gabapentin 100 MG CAP PO SCH ×3 (11:50→21:06)
[2019-11-30] MEDS: Lidocaine 5% Patch TD SCH (11:51)
[2019-11-30] MEDS: Polyethylene Glycol 3350 17 GM Packet PO SCH (11:51)
[2019-11-30] MEDS: Zonisamide 100 MG CAP PO SCH ×2 (11:52→21:06)
[2019-11-30] MEDS: Rifampin 300 MG CAP PO SCH ×2 (11:52→21:06)
[2019-11-30] MEDS: Aripiprazole 10 MG TAB PO SCH (11:53)
[2019-11-30] MEDS: CEFAZOLIN 2 GM in Premix Bag 1 BAG IVPB SCH ×2 (13:15→21:04)
--- NOTE | 2019-11-30 16:10 | PDOC.HOSPP ---
- Subjective Encounter Date: 11/30/19 Encounter Time: 11:00 Subjective: Patient seen and examined for bacteremia with endocarditis. Underwent EMMA todayofficial report pending at this time. Denies any chest pain or shortness of breath. - Objective Vital Signs & Weight: Vital Signs (12 hours) Temp Pulse Resp BP Pulse Ox 11/30/19 11:30 97.5 F L 88 16 135/70 99 11/30/19 07:25 99 11/30/19 07:20 98.7 F 74 16 125/74 98 Weight Admit Weight 136 lb 3.2 oz Weight 136 lb 3.2 oz I&O: 11/29/19 11/30/19 12/01/19 06:59 06:59 06:59 Intake Total 1060 990 120 Output Total 790 1000 Balance 270 -10 120 Result Diagrams: 11/30/19 03:49 11/30/19 06:30 EKG Reviewed by me: Yes (Sinus rhythm on telemetry) Hospitalist ROS - Review of Systems Cardiovascular: denies: chest pain, palpitations, orthopnea, paroxysmal noc. dyspnea, edema, light headedness, other Gastrointestinal: denies: nausea, vomiting, abdominal pain, diarrhea, cons tipation, melena, hematochezia, other Genitourinary: denies: dysuria, frequency, incontinence, hematuria, retention, other - Medication Medications: Active Medications Generic Name Dose Route Start Last Admin Trade Name Freq PRN Reason Stop Dose Admin Acetaminophen 650 mg 11/25/19 20:01 11/27/19 08:47 Acetaminophen 325 Mg Tab PO 650 mg Q4H PRN Administration Headache/Fever/Mild Pain (1-3) Amiodarone HCl 200 mg 11/28/19 09:00 11/30/19 11:50 Amiodarone 200 Mg Tab PO 200 mg DAILY ROBERT Administration Aripiprazole 5 mg 11/26/19 09:00 11/30/19 11:53 Aripiprazole 10 Mg Tab PO 5 mg DAILY ROBERT Administration Bumetanide 1 mg 11/26/19 09:00 11/30/19 11:50 Bumetanide 1 Mg Tab PO 1 mg DAILY ROBERT Administration Cyanocobalamin 1,000 mcg 11/29/19 21:00 11/29/19 22:21 Cyanocobalamin (Vitamin B-12) 1,000 Mcg Tab PO 1,000 mcg HS ROBERT Administration Folic Acid 1 mg 11/26/19 09:00 11/30/19 11:50 Folic Acid 1 Mg Tab PO 1 mg DAILY ROBERT Administration Gabapentin 100 mg 11/26/19 09:00 11/30/19 15:04 Gabapentin 100 Mg Cap PO 100 mg TID ROBERT Administration Cefazolin Sodium/Dextrose 2 gm 50 mls @ 100 mls/hr 11/27/19 21:00 11/30/19 13:15 / Device IVPB 12/11/19 20:00 50 mls Q12HR ROBERT Administration Lidocaine 1 patch 11/27/19 09:00 11/30/19 11:51 Lidocaine 5% Patch TD 1 patch DAILY ROBERT Administration Miscellaneous Medication 1 each 11/26/19 21:00 11/30/19 01:36 Lidocaine Patch Removal TOP 1 each 2100 ROBERT Administration Pantoprazole Sodium 40 mg 11/26/19 09:00 11/30/19 11:51 Pantoprazole 40 Mg Tab PO 40 mg DAILY ROBERT Administration Polyethylene Glycol 17 gm 11/26/19 09:00 11/30/19 11:51 Polyethylene Glycol 3350 17 Gm Packet PO 17 gm DAILY ROBERT Administration Rifampin 300 mg 11/27/19 22:00 11/30/19 11:52 Rifampin 300 Mg Cap PO 300 mg 1000,2200 ROBERT Administration Senna/Docusate Sodium 1 tab 11/30/19 09:00 11/30/19 11:50 Senokot S 8.6-50 Mg Tab PO 1 tab DAILY ROBERT Administration Sodium Chloride 10 ml 11/27/19 09:00 11/30/19 11:52 Flush - Normal Saline 10 Ml Syringe IVF 10 ml Q12HR ROBERT Administration Thiamine HCl 100 mg 11/26/19 09:00 11/30/19 11:50 Thiamine 100 Mg Tab PO 100 mg DAILY ROBERT Administration Zonisamide 100 mg 11/26/19 21:00 11/30/19 11:52 Zonisamide 100 Mg Cap PO 100 mg BID ROBERT Administration - Exam General Appearance: NAD Heart: RRR, no gallops Respiratory: no wheezes, no ronchi Gastrointestinal: non-tender, non-distended, normal bowel sounds Extremities: no cyanosis Neurological: no new deficit Psychiatric: A&O x 3 Hosp A/P (1) Sepsis Code(s): A41.9 - SEPSIS, UNSPECIFIED ORGANISM Status: Acute (2) Bacteremia Code(s): R78.81 - BACTEREMIA Status: Acute (3) Endocarditis Code(s): I38 - ENDOCARDITIS, VALVE UNSPECIFIED Status: Acute (4) Chronic systolic heart failure Code(s): I50.22 - CHRONIC SYSTOLIC (CONGESTIVE) HEART FAILURE Status: Acute (5) Chronic anticoagulation Code(s): Z79.01 - TELEPHONE COLLECTOR (CURRENT) USE OF ANTICOAGULANTS Status: Chronic (6) Pancytopenia Code(s): D61.818 - OTHER PANCYTOPENIA Status: Acute (7) CKD (chronic kidney disease) stage 3, GFR 30-59 ml/min Code(s): N18.3 - CHRONIC KIDNEY DISEASE, STAGE 3 (MODERATE) Status: Chronic (8) Electrolyte abnormality Code(s): E87.8 - OTH DISORDERS OF ELECTROLYTE AND FLUID BALANCE, NEC Status: Acute (9) Other issues per previous notes - Plan DVT proph w/SCDs 11/29 Patient underwent EMMA todayofficial report pending at this time. Continue antibiotics per ID (Ancef with rifampin). Replace magnesium. Continue amiodarone. Entresto started. INR 2.9 today. Continue current dose of warfarin. Check PT/INR and other labs in a.m. Continue other medications as a massimo 11/28 Plan for EMMA in a.m. Warfarin dose reduced to 5 mg daily. Monitor INR. Continue physical therapy. Continue IV Ancef for the rifampin. Continue amiodarone, Bumex, zonisamide and other medications as above. 11/27 Continue IV Ancef with rifampin per infectious disease. Consult physical th edward. Consult caser shoe parts for home health care evaluation including antibiotics set up. Discontinue heparin drip since INR is therapeutic. Replace magnesium. Recheck labs in a.m. including PT INR. Plan discussed with patient and the family at the bedside Other chronic issueshistory of cocaine abuse, history of recent respiratory failure requiring intubation, history of aortic valve replacement on chronic anticoagulation
--- NOTE | 2019-11-30 16:43 | OP ---
DATE OF PROCEDURE: 11/30/2019 PROCEDURE PERFORMED: Transesophageal echocardiogram. INDICATION: A 64-year-old woman with sepsis. DESCRIPTION OF PROCEDURE: The patient was taken to the PACU. The patient was sedated by Anesthesiology. A transesophageal probe was placed into the distal esophagus and stomach. The echocardiographic images were obtained. The transesophageal probe was removed. FINDINGS: 1. Severe decrease in left ventricular systolic function. 2. The left ventricle was moderately dilated. 3. A 1.5-cm mass is noted attached to the posterior mitral valve leaflet very suggestive of vegetation. 4. [id number] mitral regurgitation. 5. Moderate tricuspid regurgitation. 6. There is a mechanical aortic valve with mild aortic regurgitation. 7. Atherosclerotic debris in the descending aorta. IMPRESSION: A 1.5-cm mass attached to the posterior mitral valve, very suggestive of a vegetation with no obvious vegetation noted on mechanical aortic valve with [id number] mitral regurgitation. Job ID: [id number] MTDD
[2019-11-30] MEDS: Warfarin Sodium 5 MG TAB PO SCH (17:39)
[2019-11-30] MEDS ORDERED: Sacubitril 49 MG/Valsartan 51 MG TABLET PO SCH (20:45)
[2019-11-30] MEDS: Saccharomyces boulardii 250 MG CAP PO SCH (21:06)
[2019-11-30] MEDS: Cyanocobalamin (Vitamin B-12) 1,000 MCG TAB PO SCH (21:06)
[2019-12-01 05:14] LABS: Hemoglobin 7.7 g/dL (12.0-16.0); Platelet Count 71 thou/uL (130-400)
[2019-12-01 05:15] LABS: INR-International Normal Ratio 2.7; Prothrombin Time 28.5 sec (12.0-14.7)
[2019-12-01 05:16] LABS: Anion Gap 15 mmol/L (10-20); BUN (Urea Nitrogen) 23 mg/dL (9.8-20.1); Calc. Creatinine Clearance 36 mL/min (70-130); Calcium 8.4 mg/dL (7.8-10.44); Carbon Dioxide 24 mmol/L (23-31); Chloride 100 mmol/L (98-107); Estimated GFR-MDRD 35; Glucose 94 mg/dL (80-115); Potassium 3.9 mmol/L (3.5-5.1); Sodium 135 mmol/L (136-145)
[2019-12-01] MEDS: Amiodarone 200 MG TAB PO SCH (08:58)
[2019-12-01] MEDS: Aripiprazole 10 MG TAB PO SCH (08:58)
[2019-12-01] MEDS: Bumetanide 1 MG TAB PO SCH (09:00)
[2019-12-01] MEDS: Thiamine 100 MG TAB PO SCH (09:00)
[2019-12-01] MEDS: Gabapentin 100 MG CAP PO SCH ×3 (09:00→21:39)
[2019-12-01] MEDS: Rifampin 300 MG CAP PO SCH ×2 (09:00→21:41)
[2019-12-01] MEDS: Folic Acid 1 MG TAB PO SCH (09:00)
[2019-12-01] MEDS: Zonisamide 100 MG CAP PO SCH ×2 (09:00→21:39)
[2019-12-01] MEDS: Senokot S 8.6-50 MG TAB PO SCH (09:00)
[2019-12-01] MEDS: CEFAZOLIN 2 GM in Premix Bag 1 BAG IVPB SCH ×2 (09:01→21:39)
[2019-12-01] MEDS: Lidocaine 5% Patch TD SCH (09:01)
[2019-12-01] MEDS: Polyethylene Glycol 3350 17 GM Packet PO SCH (09:06)
[2019-12-01] MEDS: Warfarin Sodium 5 MG TAB PO SCH (16:22)
--- NOTE | 2019-12-01 16:35 | CON ---
DATE OF CONSULTATION: 12/01/2019 REASON FOR CONSULT: Management of acute on chronic heart failure with reduced ejection fraction in the setting of endocarditis. HISTORY OF PRESENT ILLNESS: Ms. Timmy Marrero is a 64-year-old lady with aortic valve replacement and recent diagnosis of endocarditis, was sent back from [facility]. 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 She was able to walk a round trip from her house to a post office that was half mile away and back without difficulties. They live [place] the country at [place], [place]. She and her said that she can feed their animals and carry heavy feed bags without difficulties. She had difficulty back in 1992. 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 Her aortic valve was replaced in 1992. However, her replaced aortic valve has thrombosed, that led to a 2nd operation with a new mechanical aortic valve in 1994. They claimed they have been doing well for a long time. She developed abdominal pain in June 2019. She was diagnosed with diverticulosis. She has not been the same since then. She has had persistent abdominal discomfort. For the entire month of November, she has not been eating much at all. Apparently, she has quite a bit of weight loss. On November 09, she felt cold and extremely tired and she fell down and then she just fell asleep on the couch. Her found her asleep on the couch on November 10, looking very ill and he brought her in. She was found to be in septic shock and her blood culture grew 2/2 MSSA. She was transferred to [facility] for care. There, they treated her for septic shock. EMMA there did not believe that she had endocarditis. After stabilization, she was eventually transferred back. Ms. Marrero is very tearful about that situation. She said she was treated poorly at [facility] in [place] and do not wish to be sent back there. Since being back at [place], she has been fairly asymptomatic. A followup EMMA here showed endocarditis. PAST MEDICAL HISTORY: 1. Mitral valve posterior leaflet endocarditis. 2. History of aortic valve replacement twice, last one in 1994. 3. Likely chronic heart failure with reduced ejection fraction, because the BNP value back in June 19, 2019 was 2732. Therefore, she had heart failure back in June 2019. Reported history of a reaction to implanted pacemaker. It was reported that pacemaker produced severe inflammatory response and that they had to remove it. 4. History of seizure disorder. 5. History of asthma. SOCIAL HISTORY: She denied ever smoking. She was an occasional alcohol user, but then she denies having any alcohol input for the last year. She adamantly denied any illicit drug use. She did have positive drug screen for break-down product of cocaine, however, she strongly denied ever using any illicit drugs. 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 She has been a long time to her who live in [place], [place]. FAMILY HISTORY: Her father at age 70. She does not know the cause. Her mother at age 70 due to cancer. She has a one sister who is living, seems to be doing well. ALLERGIES: CEPHALOSPORIN, CODEINE, AND PENICILLIN. CURRENT MEDICATIONS: Include; 1. Amiodarone 200 mg daily. 2. Abilify 5 mg daily. 3. Bumex 1 mg daily. 4. Cefazolin 2 g every 12 hours. 5. Vitamin B12 1000 mcg each night. 6. Folic acid 1 mg daily. 7. Gabapentin 100 mg t.i.d. 8. Lidocaine 5% patch at day daily. 9. Zofran 4 mg IV q.6 hours p.r.n. 10. Protonix 40 mg daily. 11. Rifampin 300 mg twice a day. 12. Sacubitril/valsartan that is Entresto at 24 combination tablet, 1 tablet daily. 13. Thiamine 100 mg daily. 14. Warfarin currently at 5 mg daily. 15. Zonisamide 100 mg twice per day. Telemetry strip was reviewed. It is mainly in sinus rhythm, However, she does have frequent PVCs. PHYSICAL EXAMINATION: VITAL SIGNS: Heart rate 78, blood pressure 93/57, this is about 1 hour after a dose of Entresto 24/26 combination. GENERAL: She is alert, conversational. Appeared to be relaxed. However, she has tone deaf. She actually need to see your mouth to understand you. HEENT: Show EOMI. Oropharynx is benign with moist mucosa. NECK: Her JVP is actually only 8 cm with a negative hepatojugular reflux, so she is euvolemic. PULMONARY: There is good air movement bilaterally, that is clear to auscultation bilaterally. CARDIAC: Regular rate with occasional irregularities. There is a faint 1/6 diastolic murmur at the right sternal border. There is a 2/6 holosystolic murmur at the left sternal border. There is a mechanical aortic valve clicks at the upper right sternal border, there is also 2/6 holosystolic murmur near the apex with some radiation to the left axilla. ABDOMEN: Soft, nontender. Positive bowel sounds. EXTREMITIES: Lower extremities are without edema. Positive dorsalis pedis pulses bilaterally. LABORATORY DATA: Her laboratory values show hemoglobin of 7.7 and hematocrit of 25.2, and platelets only 71. Her chemistry shows sodium 135, potassium 3.9, chloride 100, BUN 23, and creatinine of 1.52, and calcium of 8.4. Transesophageal echocardiogram on November 29 was reviewed. 1. There is at least a 1.3 cm vegetation at the posterior leaf of mitral valve. There is also enlarged portion with a dark area inside that she probably has an abscess in her mitral valve. 2. There is an eccentric jet around the mitral valve, possibly severe due to the eccentricity. 3. There is also mild mitral stenosis. 4. Her left ventricular ejection fraction is approximately between 20% to 25%. 5. There is also at least moderate aortic regurgitation. 6. There is at least a moderate tricuspid regurgitation, so the patient has endocarditis with multiple valve defects. 7. She does have a mechanical aortic valve in place. There is AI around the mechanical aortic valve. ASSESSMENT: 64-year-old female has [place] Heart Association stage C and [place] Heart Association class III heart failure with reduced ejection fraction. This is likely due to combination of her past difficulties in aortic valve and current results of endocarditis. Surprisingly, she is currently well compensated by exam. She is also euvolemic. However, I would be careful about titrating up the Entresto too quickly because she has marginal blood pressure. She also has anemia. This could be caused by her endocarditis. For now, we may be able to optimize her medical regimen. If her endocarditis and mitral regurgitation and also aortic regurgitation does not improve in next three months, then advanced heart failure therapy evaluation will need to be considered. At that time, [facility] may be a better referral group because she does not like [facility] anymore. Please see the following for my recommendations: RECOMMENDATIONS: 1. Agree with transfusing 2 units of blood. This will help her renal condition and also would increase perfusion to the rest of her body. 2. Agree with starting Entresto at 24/26 q.12 hours. Please allow this to go on for four doses to find out if she can tolerate this. If her blood pressure goes too low, we can reduce it down to half tablet twice a day. 3. Please redo a urine drug screen to see is she still has a positive cocaine test, if she does, this is likely a byproduct of one of her medications. 4. I believe it is okay to place PICC for long-term antibiotics. 5. With her arrhythmia, tomorrow we can start low-dose Toprol-XL 12.5 mg q.12 hours. That will quite down her arrhythmia and then this also needed to help her with heart failure with reduced ejection fraction. 6. If her blood pressure drops in the mid 80s, then start dobutamine at 2.5 mcg/kg/minute. It has been a pleasure of taking care of Ms. Timmy Marrero. If you have any questions, please give me a call. This visitation took about 70 minutes. This includes personally performing history and physical, calling family member, reviewing telemetry, reviewing echocardiogram results, coordinating care with other services and direct patient interaction including explaining counseling. Job ID: [id number] MTDD
[2019-12-01 16:58] LABS: Amphetamine Not Detected (NotDetected); Barbiturates Screen Not Detected (NotDetected); Benzodiazepine Screen Not Detected (NotDetected); Cocaine Metabolite Screen Not Detected (NotDetected); Medtox Control Line Valid? VALID (VALID); Medtox Reader # READER 4; Methadone Not Detected (NotDetected); Methamphetamine Detected (NotDetected); Opiate Screen Detected (NotDetected); Oxycodone Screen Not Detected (NotDetected); Phencyclidine (PCP) Not Detected (NotDetected); THC/Cannabinoid Screen Not Detected (NotDetected); Tricyclic Screen Not Detected (NotDetected)
--- NOTE | 2019-12-01 21:11 | PDOC.HOSPP ---
- Subjective Encounter Date: 12/01/19 Encounter Time: 14:00 Subjective: Patient seen and examined for endocarditis. Feels generally weak. Denies any chest pain or shortness of breath at rest. - Objective Vital Signs & Weight: Vital Signs (12 hours) Temp Pulse Pulse Resp BP BP Pulse Ox 12/01/19 19:21 98.1 F 79 18 96/57 L 96 12/01/19 16:15 97.4 F L 82 19 94/56 L 100 12/01/19 15:30 97.7 F 81 17 121/64 100 12/01/19 11:40 97.5 F L 82 16 90/59 L 100 12/01/19 11:10 97.6 F 78 17 93/57 L 100 Weight Admit Weight 136 lb 3.2 oz Weight 132 lb 5 oz I&O: 11/30/19 12/01/19 12/02/19 06:59 06:59 06:59 Intake Total 990 716 500 Output Total 1000 Balance -10 716 500 Result Diagrams: 12/01/19 04:04 12/01/19 04:04 EKG Reviewed by me: Yes (Sinus rhythm on telemetry) Hospitalist ROS - Review of Systems Respiratory: reports: SOB with excertion. denies: cough, dry, shortness of breath, hemoptysis, pleuritic pain, sputum, wheezing, other Cardiovascular: denies: chest pain, palpitations, orthopnea, paroxysmal noc. dyspnea, edema, light headedness, other Gastrointestinal: denies: nausea, vomiting, abdominal pain, diarrhea, constipation, melena, hematochezia, other - Medication Medications: Active Medications Generic Name Dose Route Start Last Admin Trade Name Freq PRN Reason Stop Dose Admin Acetaminophen 650 mg 11/25/19 20:01 11/27/19 08:47 Acetaminophen 325 Mg Tab PO 650 mg Q4H PRN Administration Headache/Fever/Mild Pain (1-3) Amiodarone HCl 200 mg 11/28/19 09:00 12/01/19 08:58 Amiodarone 200 Mg Tab PO 200 mg DAILY ROBERT Administration Aripiprazole 5 mg 11/26/19 09:00 12/01/19 08:58 Aripiprazole 10 Mg Tab PO 5 mg DAILY ROBERT Administration Bumetanide 1 mg 11/26/19 09:00 12/01/19 09:00 Bumetanide 1 Mg Tab PO 1 mg DAILY ROBERT Administration Cyanocobalamin 1,000 mcg 11/29/19 21:00 11/30/19 21:06 Cyanocobalamin (Vitamin B-12) 1,000 Mcg Tab PO 1,000 mcg HS ROBERT Administration Folic Acid 1 mg 11/26/19 09:00 12/01/19 09:00 Folic Acid 1 Mg Tab PO 1 mg DAILY ROBERT Administration Gabapentin 100 mg 11/26/19 09:00 12/01/19 16:22 Gabapentin 100 Mg Cap PO 100 mg TID ROBERT Administration Cefazolin Sodium/Dextrose 2 gm 50 mls @ 100 mls/hr 11/27/19 21:00 12/01/19 09:01 / Device IVPB 12/11/19 20:00 50 mls Q12HR ROBERT Administration Lidocaine 1 patch 11/27/19 09:00 12/01/19 09:01 Lidocaine 5% Patch TD 1 patch DAILY ROBERT Administration Miscellaneous Medication 1 each 11/26/19 21:00 11/30/19 21:07 Lidocaine Patch Removal TOP 1 each 2100 ROBERT Administration Pantoprazole Sodium 40 mg 11/26/19 09:00 12/01/19 09:00 Pantoprazole 40 Mg Tab PO 40 mg DAILY ROBERT Administration Polyethylene Glycol 17 gm 11/26/19 09:00 12/01/19 09:06 Polyethylene Glycol 3350 17 Gm Packet PO Not Given DAILY ROBERT Rifampin 300 mg 11/27/19 22:00 12/01/19 09:00 Rifampin 300 Mg Cap PO 300 mg 1000,2200 ROBERT Administration Saccharomyces Boulardii 250 mg 11/30/19 21:00 11/30/19 21:06 Saccharomyces Boulardii 250 Mg Cap PO 250 mg HS ROBERT Administration Sacubitril/Valsartan 1 tab 12/01/19 09:00 12/01/19 09:51 Sacubitril 24mg/Valsartan 26mg Tab PO 1 tab BID ROBERT Administration Senna/Docusate Sodium 1 tab 11/30/19 09:00 12/01/19 09:00 Senokot S 8.6-50 Mg Tab PO 1 tab DAILY ROBERT Administration Sodium Chloride 10 ml 11/27/19 09:00 12/01/19 09:18 Flush - Normal Saline 10 Ml Syringe IVF 10 ml Q12HR ROBERT Administration Thiamine HCl 100 mg 11/26/19 09:00 12/01/19 09:00 Thiamine 100 Mg Tab PO 100 mg DAILY ROBERT Administration Warfarin Sodium 5 mg 11/30/19 17:00 12/01/19 16:22 Warfarin Sodium 5 Mg Tab PO 5 mg 1700 ROBERT Administration Zonisamide 100 mg 11/26/19 21:00 12/01/19 09:00 Zonisamide 100 Mg Cap PO 100 mg BID ROBERT Administration - Exam General Appearance: NAD Neck: supple, no JVD Heart: no gallops, no rubs Respiratory: no wheezes, no ronchi Gastrointestinal: non-tender, non-distended Extremities: no cyanosis, no clubbing Neurological: cranial nerve grossly intact, normal sensation to touch Musculoskeletal: generalized weakness Psychiatric: normal affect, A&O x 3 Hosp A/P (1) Sepsis Code(s): A41.9 - SEPSIS, UNSPECIFIED ORGANISM Status: Acute (2) Bacteremia Code(s): R78.81 - BACTEREMIA Status: Acute (3) Endocarditis Code(s): I38 - ENDOCARDITIS, VALVE UNSPECIFIED Status: Acute Qualifiers: Endocarditis type: infective (4) Chronic systolic heart failure Code(s): I50.22 - CHRONIC SYSTOLIC (CONGESTIVE) HEART FAILURE Status: Acute (5) Chronic anticoagulation Code(s): Z79.01 - CONCRETE [employer]AB[employer]ICATING SUPERVISOR (CURRENT) USE OF ANTICOAGULANTS Status: Chronic (6) Pancytopenia Code(s): D61.818 - OTHER PANCYTOPENIA Status: Acute (7) CKD (chronic kidney disease) stage 3, GFR 30-59 ml/min Code(s): N18.3 - CHRONIC KIDNEY DISEASE, STAGE 3 (MODERATE) Status: Chronic (8) Electrolyte abnormality Code(s): E87.8 - OTH DISORDERS OF ELECTROLYTE AND FLUID BALANCE, NEC Status: Acute (9) Other issues per previous notes - Plan 11/30 Hemoglobin gradually dropping. It is 7.7. INR today was 2.7. Patient receiving blood transfusion per cardiology recommendation. Continue Ancef with rifampin. computer programming manager consulted for outpatient antibiotic setup. Continue physical therapy. Continue Entresto and Bumex. Monitor H&H. Check PT/INR in a.m. check reticulocyte in a.m. There is no ongoing bleeding identified continue other medications as above. 11/29 Patient underwent EMMA todayofficial report pending at this time. Continue antibiotics per ID (Ancef with rifampin). Replace magnesium. Continue amiodarone. Entresto started. INR 2.9 today. Continue current dose of warfarin. Check PT/INR and other labs in a.m. Continue other medications as above 11/28 Plan for EMMA in a.m. Warfarin dose reduced to 5 mg daily. Monitor INR. Continue physical therapy. Continue IV Ancef for the rifampin. Continue amiodarone, Bumex, zonisamide and other medications as above. 11/27 Continue IV Ancef with rifampin per infectious disease. Consult physical therapy. Consult case worker for home health care evaluation including antibiotics set up. Discontinue heparin drip since INR is therapeutic. Replace magnesium. Recheck labs in a.m. including PT INR. Plan discussed with patient and the family at the bedside Other chronic issueshistory of cocaine abuse, history of recent respiratory failure requiring intubation, history of aortic valve replacement on chronic anticoagulation
[2019-12-01] MEDS: Cyanocobalamin (Vitamin B-12) 1,000 MCG TAB PO SCH (21:39)
[2019-12-01] MEDS: Saccharomyces boulardii 250 MG CAP PO SCH (21:39)
[2019-12-01] MEDS: Lidocaine Patch Removal TOP SCH (21:40)
[2019-12-02 04:30] LABS: Hemoglobin 10.1 g/dL (12.0-16.0); Platelet Count 67 thou/uL (130-400)
[2019-12-02 04:32] LABS: Reticulocyte Count 1.6 % (0.5-1.5)
[2019-12-02 04:33] LABS: INR-International Normal Ratio 3.2; Prothrombin Time 32.8 sec (12.0-14.7)
[2019-12-02 04:46] LABS: Anion Gap 13 mmol/L (10-20); BUN (Urea Nitrogen) 26 mg/dL (9.8-20.1); Calc. Creatinine Clearance 33 mL/min (70-130); Calcium 8.3 mg/dL (7.8-10.44); Carbon Dioxide 23 mmol/L (23-31); Chloride 102 mmol/L (98-107); Estimated GFR-MDRD 31; Glucose 110 mg/dL (80-115); Potassium 4.1 mmol/L (3.5-5.1); Sodium 134 mmol/L (136-145)
--- NOTE | 2019-12-02 08:15 | PRG ---
DATE OF SERVICE: 12/01/2019 SUBJECTIVE: About the same, with the same issues with communication due to her hearing impairment. She has no dyspnea. No chest pain or abdominal pain or diarrhea. No joint symptoms or back pain. OBJECTIVE: VITAL SIGNS: Temperature has been normal since admission, BP 94/56, heart rate 100, and respiratory rate 19. GENERAL: Appears in no distress. LUNGS: Clear. CARDIAC: S1 and S2, regular rate with a soft holosystolic murmur at the apex. ABDOMEN: Soft, not distended or tender. EXTREMITIES: No joint inflammatory activity. Moves extremities equally. LABORATORY DATA: White cell count 3.4, hemoglobin 8, platelets 58,000. INR 2.7, creatinine 1.52, GFR 35 which is her baseline. The patient had a EMMA, which showed a quite large vegetation, 1.6 cm I think, at the mitral valve. Dr. Ochoa thinks there might be an abscess around the valve as well. Dr. Boogie described moderate to severe mitral regurgitation, but no abscess in the valve. The mechanical valve seems to be spared. ASSESSMENT AND DISCUSSION: Aortic valve replacement for many decades with 2 replacements I believe; Staph aureus bacteremia; MSSA of unknown primary site; now with obvious mitral valve endocarditis; fairly large vegetation; and moderate to severe mitral regurgitation. The patient does not have coverage for outpatient treatment with antimicrobial therapy and what we are going to have to do is switch her to daptomycin once daily. She will have to come once daily here to the hospital for the infusion, treat her for 6 weeks, 10 mg/kg adjusted for renal function. Job ID: [id number]
[2019-12-02] MEDS: Folic Acid 1 MG TAB PO SCH (09:31)
[2019-12-02] MEDS: Gabapentin 100 MG CAP PO SCH ×3 (09:31→20:29)
[2019-12-02] MEDS: CEFAZOLIN 2 GM in Premix Bag 1 BAG IVPB SCH ×2 (09:31→20:29)
[2019-12-02] MEDS: Polyethylene Glycol 3350 17 GM Packet PO SCH (09:32)
[2019-12-02] MEDS: Thiamine 100 MG TAB PO SCH (09:32)
[2019-12-02] MEDS: Aripiprazole 10 MG TAB PO SCH (09:32)
[2019-12-02] MEDS: Amiodarone 200 MG TAB PO SCH (09:32)
[2019-12-02] MEDS: Bumetanide 1 MG TAB PO SCH (09:32)
[2019-12-02] MEDS: Senokot S 8.6-50 MG TAB PO SCH (09:32)
[2019-12-02] MEDS: Lidocaine 5% Patch TD SCH (09:33)
[2019-12-02] MEDS: Zonisamide 100 MG CAP PO SCH ×2 (09:34→20:29)
[2019-12-02] MEDS: Rifampin 300 MG CAP PO SCH ×2 (09:35→20:29)
--- NOTE | 2019-12-02 13:00 | PRG ---
DATE OF SERVICE: 12/02/2019 SERVICE: Advanced Heart Failure Consulting Cardiology Service. SUBJECTIVE: Ms. Marrero had a good day. She is able to ambulate with physical therapy. She does not have any shortness of breath. She does not have any chest pain or palpitations. Generally, she feels good. She does not have any pain. She wants to go home. REVIEW OF SYSTEMS: GENERAL: There is no complaint of fever, chills, or productive cough. She is feeling well overall. HEENT: There is no change in vision. Her hearing has tone deaf. She has required to see someone's lips to understand. There is no change in swallowing. PULMONARY: Please see HPI. CARDIAC: There is no chest pain, palpitation, or syncope. GASTROINTESTINAL: There is no nausea, vomiting, or diarrhea. GENITOURINARY: She is able to urinate on her own. MUSCULOSKELETAL: There are no muscle or joint pains. INTEGUMENT: There are no new skin lesions. NEUROLOGIC: There are no focal deficits or weaknesses. MEDICATIONS: Her cardiac medications include, 1. Amiodarone 200 mg daily. 2. Bumex 1 mg daily. 3. Carvedilol has just started last night at 3.125 mg b.i.d. 4. Entresto at 24/26 mg combination, which is sacubitril/valsartan at 24/26 mg combination one tablet twice a day. 5. Warfarin 4 mg each night. 6. Her neurologic medications include Abilify 5 mg daily and also zonisamide 100 mg b.i.d. PHYSICAL EXAMINATION: TELEMETRY: Reviewed. She is mainly in sinus rhythm. However, she has frequent PVCs. VITAL SIGNS: She has variable vitals. Her blood pressure on 2 measurements was 96/57, another one was 96/59, but there is one that popped up at 148/75. Her heart rate ranged between low 60s to mid 80s. GENERAL: She is alert and conversational, sitting comfortably in the chair. HEENT: Show EOMI. Oropharynx is benign with moist mucosa. NECK: Her JVP is about 10 cm with positive hepatojugular reflux. This is increased from yesterday. PULMONARY: There is good air movement bilaterally; however, there are left basilar crackles. This is new from yesterday. CARDIAC: Regular rate, but then there is an occasional irregular rhythm that occurs quite frequently. There is S1 and S2; however, there is also a mechanical valve click at the aortic valve position. There is a very soft 1/6 diastolic murmur at the right sternal border. There is 2/6 holosystolic murmur at the apex with radiation to the left axilla. ABDOMEN: Soft, nontender. Positive bowel sounds. EXTREMITIES: Her lower extremity are without edema. LABORATORY VALUES: Sodium 134, potassium 4.1, chloride 102, bicarb 23, her BUN slightly elevated at 26, and her creatinine has increased a little bit more to 1.66. ASSESSMENT: 64-year-old female is making progress from her endocarditis and also from her heart failure with reduced ejection fraction. She is likely to reside in [place] Heart Association stage C, [place] Heart Association class III heart failure with reduced ejection fraction with combined systolic and diastolic dysfunctions. She has slightly volume increased today. Her carvedilol has been started yesterday. Carvedlilol needs to be increased to the minimum effective dose of 6.25 mg twice a day. Her director long term care prognosis is uncertain. There is some chance of progressing into needing advanced heart failure therapy. For now, we can attempt to maximize her heart failure medications. Her endocarditis of the mitral valve needs continued to be aggressively addressed. She is on rifampin and cefazolin for this. She is on cefazolin 2 g q.12 hours. For now, we need to continue with Entresto, titrate up the carvedilol, and may consider adding spironolactone. Please see the following for recommendations. RECOMMENDATIONS: 1. Please do renal ultrasound to look for renal artery stenosis because that would limit our options. 2. Please increase carvedilol to 6.25 mg twice a day. 3. Continue with Entresto / for now. She dipped below 100 several times. Thus, this may be the highest dose that she can tolerate. Associated with this, she needs to be given instruction about patient assistance from [employer]. I spoke to her about the 30-day free sample card, the application for [employer] income, and also the application to [employer] patient assistance program. 4. I also instructed the patient that she needs to limit herself to 2 L per day and weigh herself every day. She knows that more than 3-pound gain in one day or 5 pounds of weight gain in 1 week is too much and need to ask for help. It has been a pleasure taking care of Ms. Marrero. If you have any question, please give me a call. This visit took about 35 minutes. This included personally performing history and physical, coordinating care, and direct patient interaction including explanation, counseling, and also meeting with family member. Job ID: [id number] MTDD
[2019-12-02] MEDS: Carvedilol 6.25 MG TAB PO SCH (17:37)
--- NOTE | 2019-12-02 19:07 | PDOC.HOSPP ---
- Subjective Encounter Date: 12/02/19 Encounter Time: 17:00 Subjective: Patient seen and examined for sepsis due to endocarditis. Denies any new complaints. No chest pain or shortness of breath. No fevers reported. - Objective Vital Signs & Weight: Vital Signs (12 hours) Temp Pulse Pulse Pulse Resp BP BP 12/02/19 15:29 97.4 F L 63 16 12/02/19 11:41 97.5 F L 83 16 12/02/19 10:04 56 L 83 129/90 140/73 12/02/19 08:09 97.8 F 86 16 BP Pulse Ox 12/02/19 15:29 134/74 100 12/02/19 11:41 140/73 100 12/02/19 10:04 12/02/19 08:09 148/75 H 99 Weight Admit Weight 136 lb 3.2 oz Weight 132 lb 5 oz I&O: 12/01/19 12/02/19 12/03/19 06:59 06:59 06:59 Intake Total 716 1320 670 Output Total 850 Balance 716 933 670 Result Diagrams: 12/02/19 04:01 12/02/19 04:01 EKG Reviewed by me: Yes (Sinus rhythm on telemetry) Hospitalist ROS - Review of Systems Respiratory: denies: cough, dry, shortness of breath, hemoptysis, SOB with excertion, pleuritic pain, sputum, wheezing, other Cardiovascular: denies: chest pain, palpitations, orthopnea, paroxysmal noc. dyspnea, edema, light headedness, other - Medication Medications: Active Medications Generic Name Dose Route Start Last Admin Trade Name Freq PRN Reason Stop Dose Admin Acetaminophen 650 mg 11/25/19 20:01 11/27/19 08:47 Acetaminophen 325 Mg Tab PO 650 mg Q4H PRN Administration Headache/Fever/Mild Pain (1-3) Amiodarone HCl 200 mg 11/28/19 09:00 12/02/19 09:32 Amiodarone 200 Mg Tab PO 200 mg DAILY ROBERT Administration Aripiprazole 5 mg 11/26/19 09:00 12/02/19 09:32 Aripiprazole 10 Mg Tab PO 5 mg DAILY ROBERT Administration Bumetanide 1 mg 11/26/19 09:00 12/02/19 09:32 Bumetanide 1 Mg Tab PO 1 mg DAILY ROBERT Administration Carvedilol 6.25 mg 12/02/19 17:00 12/02/19 17:37 Carvedilol 6.25 Mg Tab PO 6.25 mg BID-WM ROBERT Administration Cyanocobalamin 1,000 mcg 11/29/19 21:00 12/01/19 21:39 Cyanocobalamin (Vitamin B-12) 1,000 Mcg Tab PO 1,000 mcg HS ROBERT Administration Folic Acid 1 mg 11/26/19 09:00 12/02/19 09:31 Folic Acid 1 Mg Tab PO 1 mg DAILY ROBERT Administration Gabapentin 100 mg 11/26/19 09:00 12/02/19 15:26 Gabapentin 100 Mg Cap PO 100 mg TID ROBERT Administration Cefazolin Sodium/Dextrose 2 gm 50 mls @ 100 mls/hr 11/27/19 21:00 12/02/19 09:31 / Device IVPB 12/11/19 20:00 50 mls Q12HR ROBERT Administration Lidocaine 1 patch 11/27/19 09:00 12/02/19 09:33 Lidocaine 5% Patch TD 1 patch DAILY ROBERT Administration Miscellaneous Medication 1 each 11/26/19 21:00 12/01/19 21:40 Lidocaine Patch Removal TOP Not Given 2100 ROBERT Pantoprazole Sodium 40 mg 11/26/19 09:00 12/02/19 09:32 Pantoprazole 40 Mg Tab PO 40 mg DAILY ROBERT Administration Polyethylene Glycol 17 gm 11/26/19 09:00 12/02/19 09:32 Polyethylene Glycol 3350 17 Gm Packet PO 17 gm DAILY ROBERT Administration Rifampin 300 mg 11/27/19 22:00 12/02/19 09:35 Rifampin 300 Mg Cap PO 300 mg 1000,2200 ROBERT Administration Saccharomyces Boulardii 250 mg 11/30/19 21:00 12/01/19 21:39 Saccharomyces Boulardii 250 Mg Cap PO 250 mg HS ROBERT Administration Sacubitril/Valsartan 1 tab 12/01/19 09:00 12/02/19 09:32 Sacubitril 24mg/Valsartan 26mg Tab PO 1 tab BID ROBERT Administration Senna/Docusate Sodium 1 tab 11/30/19 09:00 12/02/19 09:32 Senokot S 8.6-50 Mg Tab PO 1 tab DAILY ROBERT Administration Sodium Chloride 10 ml 11/27/19 09:00 12/02/19 09:32 Flush - Normal Saline 10 Ml Syringe IVF 10 ml Q12HR ROBERT Administration Thiamine HCl 100 mg 11/26/19 09:00 12/02/19 09:32 Thiamine 100 Mg Tab PO 100 mg DAILY ROBERT Administration Zonisamide 100 mg 11/26/19 21:00 12/02/19 09:34 Zonisamide 100 Mg Cap PO 100 mg BID ROBERT Administration - Exam General Appearance: NAD Neck: supple, no JVD Heart: RRR, no gallops Respiratory: no wheezes, no rales Gastrointestinal: non-distended, normal bowel sounds Extremities: no cyanosis, no clubbing Neurological: no new deficit Hosp A/P (1) Sepsis Code(s): A41.9 - SEPSIS, UNSPECIFIED ORGANISM Status: Acute (2) Bacteremia Code(s): R78.81 - BACTEREMIA Status: Acute (3) Endocarditis Code(s): I38 - ENDOCARDITIS, VALVE UNSPECIFIED Status: Acute Qualifiers: Endocarditis type: infective (4) Chronic systolic heart failure Code(s): I50.22 - CHRONIC SYSTOLIC (CONGESTIVE) HEART FAILURE Status: Acute (5) Chronic anticoagulation Code(s): Z79.01 - PENITENTIARY (CURRENT) USE OF ANTICOAGULANTS Status: Chronic (6) Pancytopenia Code(s): D61.818 - OTHER PANCYTOPENIA Status: Acute (7) CKD (chronic kidney disease) stage 3, GFR 30-59 ml/min Code(s): N18.3 - CHRONIC KIDNEY DISEASE, STAGE 3 (MODERATE) Status: Chronic (8) Electrolyte abnormality Code(s): E87.8 - OTH DISORDERS OF ELECTROLYTE AND FLUID BALANCE, NEC Status: Acute (9) Other issues per previous notes - Plan 12/01 Patient received 2 units of PRBC per cardiology. Await outpatient antibiotics set up. Patient will require daptomycin for 6 weeks per infectious disease. Continue Ancef and rifampin for now. Will continue Entresto. INR today is supratherapeutic at 3.2. Warfarin dose will be held today. Will start warfarin at 3 mg from tomorrow per cardiology. Continue other medications as above 11/30 Hemoglobin gradually dropping. It is 7.7. INR today was 2.7. Patient receiving blood transfusion per cardiology recommendation. Continue Ancef with rifampin. horticultural farm manager consulted for outpatient antibiotic setup. Continue physical therapy. Continue Entresto and Bumex. Monitor H&H. Check PT/INR in a.m. check reticulocyte in a.m. There is no ongoing bleeding identified continue other medications as above. 11/29 Patient underwent EMMA todayofficial report pending at this time. Continue antibiotics per ID (Ancef with rifampin). Replace magnesium. Continue amiodarone. Entresto started. INR 2.9 today. Continue current dose of warfarin. Check PT/INR and other labs in a.m. Continue other medications as above 11/28 Plan for EMMA in a.m. Warfarin dose reduced to 5 mg daily. Monitor INR. Continue physical therapy. Continue IV Ancef for the rifampin. Continue amiodarone, Bumex, zonisamide and other medications as above. 11/27 Continue IV Ancef with rifampin per infectious disease. Consult physical therapy. Consult case finisher for home health care evaluation including antibiotics set up. Discontinue heparin drip since INR is therapeutic. Replace magnesium. Recheck labs in a.m. including PT INR. Plan discussed with patient and the family at the bedside Other chronic issueshistory of cocaine abuse, history of recent respiratory reese lure requiring intubation, history of aortic valve replacement on chronic anticoagulation
[2019-12-02] MEDS: Cyanocobalamin (Vitamin B-12) 1,000 MCG TAB PO SCH (20:28)
[2019-12-02] MEDS: Saccharomyces boulardii 250 MG CAP PO SCH (20:29)
[2019-12-02] MEDS: Lidocaine Patch Removal TOP SCH (20:30)
[2019-12-03 04:36] LABS: INR-International Normal Ratio 2.7; Prothrombin Time 28.8 sec (12.0-14.7)
[2019-12-03 04:54] LABS: Anion Gap 12 mmol/L (10-20); BUN (Urea Nitrogen) 26 mg/dL (9.8-20.1); Calc. Creatinine Clearance 37 mL/min (70-130); Calcium 8.6 mg/dL (7.8-10.44); Carbon Dioxide 25 mmol/L (23-31); Chloride 104 mmol/L (98-107); Estimated GFR-MDRD 36; Glucose 89 mg/dL (80-115); Sodium 137 mmol/L (136-145)
[2019-12-03 05:02] LABS: Hemoglobin 9.9 g/dL (12.0-16.0); Platelet Count 60 thou/uL (130-400)
[2019-12-03] MEDS ORDERED: Magnesium 2 GM/50 ML 2 GM in Premix Bag 1 BAG IVPB SCH (06:30)
[2019-12-03] MEDS: Senokot S 8.6-50 MG TAB PO SCH (08:57)
[2019-12-03] MEDS: Aripiprazole 10 MG TAB PO SCH (08:57)
[2019-12-03] MEDS: Gabapentin 100 MG CAP PO SCH ×3 (08:58→20:26)
[2019-12-03] MEDS: Amiodarone 200 MG TAB PO SCH (08:58)
[2019-12-03] MEDS: Zonisamide 100 MG CAP PO SCH ×2 (08:58→20:26)
[2019-12-03] MEDS: Carvedilol 6.25 MG TAB PO SCH ×2 (08:58→17:19)
[2019-12-03] MEDS: Folic Acid 1 MG TAB PO SCH (08:58)
[2019-12-03] MEDS: Bumetanide 1 MG TAB PO SCH (08:58)
[2019-12-03] MEDS: Thiamine 100 MG TAB PO SCH (08:58)
[2019-12-03] MEDS: CEFAZOLIN 2 GM in Premix Bag 1 BAG IVPB SCH ×2 (08:59→20:25)
[2019-12-03] MEDS: Polyethylene Glycol 3350 17 GM Packet PO SCH (09:00)
[2019-12-03] MEDS: Rifampin 300 MG CAP PO SCH ×2 (09:01→20:26)
--- NOTE | 2019-12-03 09:14 | ULT ---
RENAL ARTERY AND RENAL ULTRASOUND: HISTORY: Possible renal artery stenosis. Hypertension. TECHNIQUE: Multiplanar, mcneil scale, and color Doppler images were obtained in a renal and renal artery ultrasoun d. Spectral analysis of the Doppler waveforms of the renal arteries and aorta were performed. FINDINGS: The right kidney is increased in echogenicity with cortical thinning. Echogenic foci are seen about the cortex measuring up to 4 mm in size. The right kidney measures 9.3 cm in length. The left kidne y is normal in echogenicity without hydronephrosis or calculus and measures 9.1 cm in length. There is a cyst in the mid portion of the kidney measuring 6.1 cm in size. Limited visualization of the urinary bladder is unremarkable. Peak systolic velocity in the aorta is 85 cm/s. Peak systolic velocity in the right renal artery is 35 cm/s. Peak systolic velocity in the left renal artery is 76 cm/s. The right renal artery to aort ic ratio is 0.41. The left renal artery to aortic ratio is 0.90. The resistive indices of both kidn eys are normal. IMPRESSION: 1. No evidence of renal artery stenosis. 2. Echogenic foci in the right kidney may represent nonobstructing kidney stones. 3. Left renal cyst. POS: EAA
[2019-12-03] MEDS: Sacubitril 49 MG/Valsartan 51 MG TABLET PO SCH ×2 (10:13→20:26)
[2019-12-03] MEDS: Lidocaine 5% Patch TD SCH (10:14)
--- NOTE | 2019-12-03 11:43 | PRG ---
DATE OF SERVICE: 12/03/2019 SERVICE: Advanced Heart Failure Cardiology Consult Service. SUBJECTIVE: Ms. Marrero had an excellent day. She was able to ambulate. She slept well because she says she is breathing easily. She did not have any symptoms. This morning, she was able to walk with physical therapy for over 600 feet. She did well without being short of breath or feeling too weak. She said that she is ready to go home. REVIEW OF SYSTEMS: GENERAL: There is no fever, chills, or productive cough. HEENT: There is no change in vision, hearing, or swallowing. She is tone deaf. She has to see your mouth and read lips in order to answer. PULMONARY: See HPI. CARDIAC: There are no chest pains, palpitations, or syncope. GASTROINTESTINAL: There is no nausea, vomiting, or diarrhea. GENITOURINARY: She is able to urinate well on her own. MUSCULOSKELETAL: There is no complaint of joint or muscular pains. INTEGUMENT: There are no complaints of integument breakdown. NEUROLOGIC: There are no focal deficits or weaknesses. MEDICATIONS: Her medications that have cardiac effects include, 1. Amiodarone 200 mg daily. 2. Abilify 500 mg daily. 3. Bumex 1 mg daily. 4. Carvedilol 6.25 mg b.i.d. 5. Cefazolin 2 g every 12 hours. This is going to be chronic, at least ongoing for next 3 to 4 weeks. 6. Gabapentin 100 mg t.i.d. 7. Lidocaine patch 5% for her back pain. 8. Protonix 40 mg daily. 9. Rifampin 300 mg twice a day for her endocarditis. 10. Sacubitril/valsartan that has been increased to 49/51 combination. 11. Warfarin 3 mg at 5 p.m. each day. 12. Zonisamide 100 mg b.i.d. PHYSICAL EXAMINATION: TELEMETRY: Reviewed. She is remaining in sinus rhythm, but she has very frequent PVCs. There is no concerning arrhythmia. VITAL SIGNS: She could have a systolic blood pressure lowest in the 96. Her latest measurement of vitals are heart rate 75 and blood pressure 133/69. GENERAL: She is alert and conversational, sitting up well, relaxed. HEENT: Show EOMI. Her JVP is probably below 10 cm because I cannot see it while she is sitting up. PULMONARY: She has good air movement bilaterally. It is clear to auscultation bilaterally. CARDIAC: Shows a regular rate and rhythm with occasional irregularity. There is a very soft 1/6 diastolic murmur at the right sternal border. There is also a mechanical valve click. There is 2/6 holosystolic murmur at the apex with radiation to the left axilla. ABDOMEN: Soft and mildly distended. Positive bowel sounds. EXTREMITIES: Her lower extremities are well perfused with minimal if any edema. LABORATORY VALUES: From this morning are sodium 137, potassium 4.0, chloride 104, bicarb 25, BUN at 26, creatinine is improved to 1.46, and glucose 89. Her renal ultrasound did not show any renal artery stenosis. However, I questioned again that the patient has never ever smoked. Thus, the templates in the computer database about her smoking status is incorrect. She has never smoked. 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 She is currently well compensated and euvolemic. She has heart failure with reduced ejection fraction with combined systolic and diastolic dysfunction. Her discharge BNP today is 541. It is most likely nonischemic cardiomyopathy. She has significant mitral regurgitation. She also has perivalvular/valvular aortic regurgitation. Her ejection fraction is between 20% to 25%. It is unknown if she can improve. Combination of carvedilol and Entresto 49/51 should help. If there is significant chance that her heart may get worse due to her valvular defect, at that point she will need to be seen for advanced heart failure treatment. When that happens, she should be referred to either [facility] or [facility] in [place]. She had a bad experience with [facility]. Please see the following for my recommendations. RECOMMENDATIONS: 1. She is well enough to be discharged today. 2. Continue Entresto at 49/51 twice a day combination. Please assist the patient with obtaining this. She should have received a 30-day free sample card. She should also have received [employer] patient assistance application. 3. Continue carvedilol at 6.25 mg twice a day. This may need to be titrated up. 4. Continue with Bumex 1 mg daily. 5. Ensure the patient has Heart Failure Clinic followup. 6. She will need regular laboratory of a BMP, magnesium, and BNP. 7. Agree with a LifeVest. She can benefit from a LifeVest. I believe the LifeVest consult has already been placed. It has been a pleasure taking care of Ms. Marrero. If you have any question, please give me a call. Total time for visit is about 35 minutes. This includes personally performing history and physical, reviewing data, coordinating care, and direct patient interaction. Job ID: [id number] MTDD
[2019-12-03] MEDS ORDERED: Warfarin Sodium 3 MG TAB PO SCH (17:00)
[2019-12-03] MEDS ORDERED: Warfarin Sodium 2 MG TAB PO SCH (17:00)
--- NOTE | 2019-12-03 18:30 | PDOC.HOSPP ---
- Subjective Encounter Date: 12/03/19 Encounter Time: 10:13 Subjective: Patient seen and examined for infective endocarditis. Denies any fever, nausea, abdominal pain or syncope. No hematuria or hemoptysis reported. Denies any other complaints. No overnight events. - Objective Vital Signs & Weight: Vital Signs (12 hours) Temp Pulse Pulse Resp BP BP BP 12/03/19 17:19 126/94 H 12/03/19 15:58 80 126/94 H 12/03/19 11:24 97.7 F 75 18 90/51 L 12/03/19 08:58 133/69 12/03/19 07:36 97.9 F 75 19 133/69 Pulse Ox Pulse Ox 12/03/19 17:19 12/03/19 15:58 99 12/03/19 11:24 100 12/03/19 08:58 12/03/19 07:36 100 Weight Admit Weight 136 lb 3.2 oz Weight 133 lb I&O: 12/02/19 12/03/19 12/04/19 06:59 06:59 06:59 Intake Total 1320 1150 Output Total 850 1350 Balance 470 -200 Result Diagrams: 12/03/19 03:54 12/03/19 03:54 EKG Reviewed by me: Yes (Sinus rhythm on telemetry) Hospitalist ROS - Review of Systems Cardiovascular: denies: chest pain, palpitations, orthopnea, paroxysmal noc. dyspnea, edema, light headedness, other Gastrointestinal: denies: nausea, vomiting, abdominal pain, diarrhea, constipation, melena, hematochezia, other - Medication Medications: Active Medications Generic Name Dose Route Start Last Admin Trade Name Bryanq PRN Reason Stop Dose Admin Acetaminophen 650 mg 11/25/19 20:01 11/27/19 08:47 Acetaminophen 325 Mg Tab PO 650 mg Q4H PRN Administration Headache/Fever/Mild Pain (1-3) Amiodarone HCl 200 mg 11/28/19 09:00 12/03/19 08:58 Amiodarone 200 Mg Tab PO 200 mg DAILY ROBERT Administration Aripiprazole 5 mg 11/26/19 09:00 12/03/19 08:57 Aripiprazole 10 Mg Tab PO 5 mg DAILY ROBERT Administration Bumetanide 1 mg 11/26/19 09:00 12/03/19 08:58 Bumetanide 1 Mg Tab PO 1 mg DAILY ROBERT Administration Carvedilol 6.25 mg 12/02/19 17:00 12/03/19 17:19 Carvedilol 6.25 Mg Tab PO 6.25 mg BID-WM ROBERT Administration Cyanocobalamin 1,000 mcg 11/29/19 21:00 12/02/19 20:28 Cyanocobalamin (Vitamin B-12) 1,000 Mcg Tab PO 1,000 mcg HS ROBERT Administration Folic Acid 1 mg 11/26/19 09:00 12/03/19 08:58 Folic Acid 1 Mg Tab PO 1 mg DAILY ROBERT Administration Gabapentin 100 mg 11/26/19 09:00 12/03/19 14:54 Gabapentin 100 Mg Cap PO 100 mg TID ROBERT Administration Cefazolin Sodium/Dextrose 2 gm 50 mls @ 100 mls/hr 11/27/19 21:00 12/03/19 08:59 / Device IVPB 12/11/19 20:00 50 mls Q12HR ROBERT Administration Lidocaine 1 patch 11/27/19 09:00 12/03/19 10:14 Lidocaine 5% Patch TD 1 patch DAILY ROBERT Administration Miscellaneous Medication 1 each 11/26/19 21:00 12/02/19 20:30 Lidocaine Patch Removal TOP Not Given 2100 ROBERT Pantoprazole Sodium 40 mg 11/26/19 09:00 12/03/19 08:59 Pantoprazole 40 Mg Tab PO 40 mg DAILY ROBRET Administration Polyethylene Glycol 17 gm 11/26/19 09:00 12/03/19 09:00 Polyethylene Glycol 3350 17 Gm Packet PO Not Given DAILY ROBERT Rifampin 300 mg 11/27/19 22:00 12/03/19 09:01 Rifampin 300 Mg Cap PO 300 mg 1000,2200 ROBERT Administration Saccharomyces Boulardii 250 mg 11/30/19 21:00 12/02/19 20:29 Saccharomyces Boulardii 250 Mg Cap PO 250 mg HS ROBERT Administration Sacubitril/Valsartan 1 tab 12/03/19 09:00 12/03/19 10:13 Sacubitril 49 Mg/Valsartan 51 Mg Tablet PO 1 tab BID ROBERT Administration Senna/Docusate Sodium 1 tab 11/30/19 09:00 12/03/19 08:57 Senokot S 8.6-50 Mg Tab PO 1 tab DAILY ROBERT Administration Sodium Chloride 10 ml 11/27/19 09:00 12/03/19 09:01 Flush - Normal Saline 10 Ml Syringe IVF 10 ml Q12HR ROBERT Administration Thiamine HCl 100 mg 11/26/19 09:00 12/03/19 08:58 Thiamine 100 Mg Tab PO 100 mg DAILY ROBERT Administration Warfarin Sodium 3 mg 12/03/19 17:00 12/03/19 17:20 Warfarin Sodium 3 Mg Tab PO 3 mg 1700 ROBERT Administration Zonisamide 100 mg 11/26/19 21:00 12/03/19 08:58 Zonisamide 100 Mg Cap PO 100 mg BID ROBERT Administration - Exam General Appearance: NAD Heart: RRR, no gallops Respiratory: no wheezes, no ronchi Gastrointestinal: non-tender, normal bowel sounds Extremities: no cyanosis, no clubbing Hosp A/P (1) Sepsis Code(s): A41.9 - SEPSIS, UNSPECIFIED ORGANISM Status: Acute (2) Bacteremia Code(s): R78.81 - BACTEREMIA Status: Acute (3) Endocarditis Code(s): I38 - ENDOCARDITIS, VALVE UNSPECIFIED Status: Acute Qualifiers: Endocarditis type: infective (4) Chronic systolic heart failure Code(s): I50.22 - CHRONIC SYSTOLIC (CONGESTIVE) HEART FAILURE Status: Acute (5) Chronic anticoagulation Code(s): Z79.01 - CARE HOME (CURRENT) USE OF ANTICOAGULANTS Status: Chronic (6) Pancytopenia Code(s): D61.818 - OTHER PANCYTOPENIA Status: Acute (7) CKD (chronic kidney disease) stage 3, GFR 30-59 ml/min Code(s): N18.3 - CHRONIC KIDNEY DISEASE, STAGE 3 (MODERATE) Status: Chronic (8) Electrolyte abnormality Code(s): E87.8 - OTH DISORDERS OF ELECTROLYTE AND FLUID BALANCE, NEC Status: Acute (9) Other issues per previous notes - Plan 12/02 Continue Ancef with rifampin. Continue Entresto. INR therapeutic today. Await LifeVest and outpatient antibiotics set up. Await assistance with Entresto. Patient will require IV daptomycin for 6 weeks per infectious disease. Patient has thrombocytopenia without any bleeding. Recheck labs in a.m. continue other medications as above. 12/01 Patient received 2 units of PRBC per cardiology. Await outpatient antibiotics set up. Patient will require daptomycin for 6 weeks per infectious disease. Continue Ancef and rifampin for now. Will continue Entresto. INR today is supratherapeutic at 3.2. Warfarin dose will be held today. Will start warfarin at 3 mg from tomorrow per cardiology. Continue other medications as above 11/30 Hemoglobin gradually dropping. It is 7.7. INR today was 2.7. Patient receiving blood transfusion per cardiology recommendation. Continue Ancef with rifampin. welfare manager consulted for outpatient antibiotic setup. Continue physical therapy. Continue Entresto and Bumex. Monitor H&H. Check PT/INR in a.m. check reticulocyte in a.m. There is no ongoing bleeding identified continue other medications as above. 11/29 Patient underwent EMMA todayofficial report pending at this time. Continue antibiotics per ID (Ancef with rifampin). Replace magnesium. Continue amiodarone. Entresto started. INR 2.9 today. Continue current dose of warfarin. Check PT/INR and other labs in a.m. Continue other medications as above 11/28 Plan for EMMA in a.m. Warfarin dose reduced to 5 mg daily. Monitor INR. Continue physical therapy. Continue IV Ancef for the rifampin. Continue amiodarone, Bumex, zonisamide and other medications as above. 11/27 Continue IV Ancef with rifampin per infectious disease. Consult physical therapy. Consult case folder for home health care evaluation including antibiotics set up. Discontinue heparin drip since INR is therapeutic. Replace magnesium. Recheck labs in a.m. including PT INR. Plan discussed with patient and the family at the bedside Other chronic issueshistory of cocaine abuse, history of recent respiratory failure requiring intubation, history of aortic valve replacement on chronic an ticoagulation
[2019-12-03] MEDS: Cyanocobalamin (Vitamin B-12) 1,000 MCG TAB PO SCH (20:26)
[2019-12-03] MEDS: Saccharomyces boulardii 250 MG CAP PO SCH (20:26)
[2019-12-04 04:08] LABS: Hemoglobin 10.4 g/dL (12.0-16.0); Platelet Count 67 thou/uL (130-400)
[2019-12-04 04:12] LABS: INR-International Normal Ratio 1.6; Prothrombin Time 19.4 sec (12.0-14.7)
[2019-12-04 04:27] LABS: Anion Gap 14 mmol/L (10-20); BUN (Urea Nitrogen) 31 mg/dL (9.8-20.1); Calc. Creatinine Clearance 38 mL/min (70-130); Calcium 8.7 mg/dL (7.8-10.44); Carbon Dioxide 23 mmol/L (23-31); Chloride 104 mmol/L (98-107); Estimated GFR-MDRD 36; Glucose 92 mg/dL (80-115); Magnesium 2.2 mg/dL (1.6-2.6); Potassium 4.4 mmol/L (3.5-5.1); Sodium 137 mmol/L (136-145)
--- NOTE | 2019-12-04 09:13 | PRG ---
DATE OF SERVICE: 12/04/2019 SUBJECTIVE: Ms. Marrero is doing better. No current complaints. She has defervesced. No recent fever. She is currently asymptomatic with no chest pain or pressure, shortness of breath, or associated symptoms. OBJECTIVE: VITAL SIGNS: Blood pressure 111/56, pulse 70, and temperature 98.2. LUNGS: Clear to auscultation. HEART: Regular rate and rhythm. ABDOMEN: Soft, nontender, and nondistended. EXTREMITIES: No edema. PERTINENT LABORATORY DATA: Hemoglobin 10.4 up from 7.7 on 12/01/2019. Creatinine 1.47 and appears stable. IMPRESSION: 1. Mitral valve endocarditis. 2. Mechanical aortic valve. 3. Cardiomyopathy. RECOMMENDATIONS: 1. ZOLL LifeVest. 2. Continue carvedilol 6.25 mg one p.o. b.i.d. in addition to amiodarone 200 daily and Entresto. 3. Continue Coumadin at current doses. INR subtherapeutic at 1.6. Would recommend increasing INR to 2.0 prior to discharge. Otherwise, I have no further recommendations. Once INR is above 2.0, it would be okay for discharge in addition to obtaining LifeVest. Job ID: [id number]
[2019-12-04] MEDS: Bumetanide 1 MG TAB PO SCH (09:23)
[2019-12-04] MEDS: Zonisamide 100 MG CAP PO SCH ×2 (09:23→21:41)
[2019-12-04] MEDS: Sacubitril 49 MG/Valsartan 51 MG TABLET PO SCH ×2 (09:23→21:41)
[2019-12-04] MEDS: Senokot S 8.6-50 MG TAB PO SCH (09:24)
[2019-12-04] MEDS: Aripiprazole 10 MG TAB PO SCH (09:24)
[2019-12-04] MEDS: Gabapentin 100 MG CAP PO SCH ×3 (09:24→21:41)
[2019-12-04] MEDS: Carvedilol 6.25 MG TAB PO SCH ×2 (09:25→17:46)
[2019-12-04] MEDS: Amiodarone 200 MG TAB PO SCH (09:25)
[2019-12-04] MEDS: Thiamine 100 MG TAB PO SCH (09:25)
[2019-12-04] MEDS: Folic Acid 1 MG TAB PO SCH (09:25)
[2019-12-04] MEDS: Polyethylene Glycol 3350 17 GM Packet PO SCH (09:28)
[2019-12-04] MEDS ORDERED: Warfarin Sodium 2 MG TAB PO SCH (10:30)
[2019-12-04] MEDS ORDERED: Carvedilol 6.25 MG TAB PO SCH (10:30)
[2019-12-04] MEDS: DAPTOmycin 600 MG in Sodium Chloride 0.9% 100 ML IVPB SCH (11:46)
--- NOTE | 2019-12-04 12:15 | PRG ---
DATE OF SERVICE: 12/04/2019 SERVICE: [facility] Consulting Service. SUBJECTIVE: Ms. Marrero had an excellent day. She continues to walk with physical therapy without difficulties. She was visited by NIKOLAS. Unfortunately, her insurance does not pay for the LifeVest. Right now, they are working through getting assistance for this. Her warfarin was titrated down. Unfortunately, her INR decreased to 1.6, so this needs to be titrated up. Her telemetry also showed a quite a bit of ectopy. She has PVCs about every 4th beat. As a consequence, her beta blockade will need to be titrated up. She actually feels well. She does not have orthopnea, PND, or chest pain. She feels like that she is back to her normal and ready to go home. REVIEW OF SYSTEMS: GENERAL: There is no fever, chills, or productive cough. HEENT: No change in vision, hearing, or swallowing. She does have difficulty hearing. PULMONARY: There is no shortness of breath. CARDIAC: There is no complaint of chest pain, palpitations, or syncope. GASTROINTESTINAL: There is no nausea, vomiting, or diarrhea. GENITOURINARY: She is urinating well on her own. MUSCULOSKELETAL: She is not complaining of joint or muscle pains. INTEGUMENT: There is no skin breakdown. NEUROLOGIC: There are no focal deficits or weaknesses. MEDICATIONS: 1. Amiodarone 200 mg daily. 2. Abilify 5 mg daily. 3. Bumex 1 mg daily. 4. Carvedilol at 6.25 mg b.i.d. 5. Vitamin B12 1000 mcg daily. 6. Daptomycin at 600 mg daily. 7. Folic acid 1 mg daily. 8. Gabapentin 100 mg t.i.d. 9. Protonix 40 mg daily. 10. MiraLAX 17 g daily. 11. Sacubitril/valsartan 49/51 tablet that was Entresto 49/51 combination one tablet twice a day. 12. Senokot S 1 tab daily. 13. Thiamine 100 mg daily. 14. Warfarin currently at 3 mg daily. 15. Zonisamide 100 mg b.i.d. PHYSICAL EXAMINATION: TELEMETRY: Reviewed. It showed that she is in sinus rhythm; however, she has frequent PVCs about every 4th beat at times. VITAL SIGNS: Her latest vitals are heart rate about 70 and blood pressure 126/94. Her previous heart rate 73 and blood pressure was 111/56. GENERAL: She is alert, conversational, relaxed, moving around well, and wants to go home. HEENT: Show EOMI. Oropharynx is benign with moist mucosa. NECK: Her JVP is about 9 cm with positive hepatojugular reflux. PULMONARY: She has excellent air movement, which is clear to auscultation bilaterally. CARDIAC: She has 1/6 diastolic murmur at the right sternal border. There is some aortic mechanical valve click. There is 2/6 holosystolic murmur at the apex with radiation to the left axilla. ABDOMEN: Soft, nontender. Positive bowel sounds. EXTREMITIES: Lower extremities are warm and well perfused without edema. ASSESSMENT: 64-year-old female has recovered well from her mitral valve endocarditis and acute on chronic heart failure with reduced ejection fraction due to non-ischemic cardiomyopathy. She will need to be on antibiotics per direction of Infectious Disease specialist and have a followup echocardiogram for resolution. She is in [place] Heart Association stage C and [place] heart Association class III heart failure with reduced ejection fraction due to nonischemic cardiomyopathy. She has both systolic and diastolic dysfunction. She is now well compensated and essentially euvolemic. Her laboratory values show chemistries that of sodium 137, potassium 4.4, chloride 104, BUN 31, creatinine 1.47, and magnesium 2.2. With continued rise of the BUN because she is being tried, also her diuretics need to be decreased a bit. She has many premature ventricular contractions, so her carvedilol will need to be increased to 12.5. She is currently on a good dose of Entresto, so that does not need to be increased anymore. It is uncertain how her heart will do. She will need close followup. If her heart deteriorates, she will need advanced heart failure therapy. For now, that she is doing well, she is able to be discharged. Please see the following for recommended changes. RECOMMENDATIONS: 1. Increase carvedilol to 12.5 mg twice a day. 2. Change Bumex from 1 mg daily to torsemide 10 mg daily. This will provide sustained diuresis on her slower rate to preserve her renal function. 3. Give warfarin 2 mg now. Increase her nightly dose to 4 mg at bedtime. 4. Complete application for a LifeVest as she is doing. 5. She will need labs q. week to ensure her electrolytes are corrected and her INR is normalizing to effective treatment range for the valve. 6. You may put her in the [facility] to be followed by nurse practitioner, Ami Finley, within a week. It has been a pleasure taking care of Ms. Marrero. If you have any questions, please give me a call. I spent 40 minutes on this visit. This includes personally performing history and physical, reviewing the data, coordinating the care, and also direct patient interaction. Job ID: [id number] MTDD
--- NOTE | 2019-12-04 12:27 | PDOC.HOSPP ---
- Subjective Encounter Date: 12/04/19 Encounter Time: 09:30 Subjective: Patient seen and examined for infective endocarditis. Denies any chest pain, shortness of breath or palpitations. - Objective Vital Signs & Weight: Vital Signs (12 hours) Temp Pulse Resp BP BP Pulse Ox 12/04/19 11:15 97.5 F L 78 18 109/67 100 12/04/19 10:41 126/94 H 12/04/19 09:25 126/94 H 12/04/19 07:36 98.2 F 70 19 111/56 L 98 12/04/19 03:41 97.6 F 73 18 126/81 97 12/04/19 00:27 97.7 F 77 16 98/56 L 98 Weight Admit Weight 136 lb 3.2 oz Weight 135 lb I&O: 12/03/19 12/04/19 12/05/19 06:59 06:59 06:59 Intake Total 1150 1920 Output Total 1350 1300 Balance -200 620 Result Diagrams: 12/04/19 03:54 12/04/19 03:54 Additional Labs: Laboratory Tests 12/04/19 03:54 INR 1.6 EKG Reviewed by me: Yes (Sinus rhythm on telemetry) Hospitalist ROS - Review of Systems Respiratory: denies: cough, dry, shortness of breath, hemoptysis, SOB with excertion, pleuritic pain, sputum, wheezing, other Cardiovascular: denies: chest pain, palpitations, orthopnea, paroxysmal noc. dyspnea, edema, light headedness, other - Medication Medications: Active Medications Generic Name Dose Route Start Last Admin Trade Name Bryanq PRN Reason Stop Dose Admin Acetaminophen 650 mg 11/25/19 20:01 11/27/19 08:47 Acetaminophen 325 Mg Tab PO 650 mg Q4H PRN Administration Headache/Fever/Mild Pain (1-3) Amiodarone HCl 200 mg 11/28/19 09:00 12/04/19 09:25 Amiodarone 200 Mg Tab PO 200 mg DAILY ROBERT Administration Aripiprazole 5 mg 11/26/19 09:00 12/04/19 09:24 Aripiprazole 10 Mg Tab PO 5 mg DAILY ROBERT Administration Carvedilol 6.25 mg 12/02/19 17:00 12/04/19 09:25 Carvedilol 6.25 Mg Tab PO 6.25 mg BID-WM ROBERT Administration Carvedilol 6.25 mg 12/04/19 10:30 12/04/19 10:41 Carvedilol 6.25 Mg Tab PO 12/04/19 13:00 6.25 mg NOW ROBERT Administration Cyanocobalamin 1,000 mcg 11/29/19 21:00 12/03/19 20:26 Cyanocobalamin (Vitamin B-12) 1,000 Mcg Tab PO 1,000 mcg HS ROBERT Administration Folic Acid 1 mg 11/26/19 09:00 12/04/19 09:25 Folic Acid 1 Mg Tab PO 1 mg DAILY ROBERT Administration Gabapentin 100 mg 11/26/19 09:00 12/04/19 09:24 Gabapentin 100 Mg Cap PO 100 mg TID ROBERT Administration Daptomycin 600 mg/ Sodium 100 mls @ 200 mls/hr 12/04/19 12:00 12/04/19 11:46 Chloride IVPB 100 mls 1200 ROBERT Administration Pantoprazole Sodium 40 mg 11/26/19 09:00 12/04/19 09:24 Pantoprazole 40 Mg Tab PO 40 mg DAILY ROBERT Administration Polyethylene Glycol 17 gm 11/26/19 09:00 12/04/19 09:28 Polyethylene Glycol 3350 17 Gm Packet PO Not Given DAILY ROBERT Saccharomyces Boulardii 250 mg 11/30/19 21:00 12/03/19 20:26 Saccharomyces Boulardii 250 Mg Cap PO 250 mg HS ROBERT Administration Sacubitril/Valsartan 1 tab 12/03/19 09:00 12/04/19 09:23 Sacubitril 49 Mg/Valsartan 51 Mg Tablet PO 1 tab BID ROBERT Administration Senna/Docusate Sodium 1 tab 11/30/19 09:00 12/04/19 09:24 Senokot S 8.6-50 Mg Tab PO 1 tab DAILY ROBERT Administration Sodium Chloride 10 ml 11/27/19 09:00 12/04/19 09:25 Flush - Normal Saline 10 Ml Syringe IVF 10 ml Q12HR ROBERT Administration Thiamine HCl 100 mg 11/26/19 09:00 12/04/19 09:25 Thiamine 100 Mg Tab PO 100 mg DAILY ROBERT Administration Warfarin Sodium 2 mg 12/04/19 10:30 12/04/19 10:42 Warfarin Sodium 2 Mg Tab PO 12/04/19 13:00 2 mg NOW ROBERT Administration Zonisamide 100 mg 11/26/19 21:00 12/04/19 09:23 Zonisamide 100 Mg Cap PO 100 mg BID ROBERT Administration - Exam Neck: supple Heart: RRR, no gallops Respiratory: CTAB, no rales Gastrointestinal: non-tender, non-distended, normal bowel sounds Hosp A/P (1) Sepsis Code(s): A41.9 - SEPSIS, UNSPECIFIED ORGANISM Status: Acute (2) Bacteremia Code(s): R78.81 - BACTEREMIA Status: Acute (3) Endocarditis Code(s): I38 - ENDOCARDITIS, VALVE UNSPECIFIED Status: Acute Qualifiers: Endocarditis type: infective (4) Chronic systolic heart failure Code(s): I50.22 - CHRONIC SYSTOLIC (CONGESTIVE) HEART FAILURE Status: Acute (5) Chronic anticoagulation Code(s): Z79.01 - LONG-TERM (CURRENT) USE OF ANTICOAGULANTS Status: Chronic (6) Pancytopenia Code(s): D61.818 - OTHER PANCYTOPENIA Status: Acute (7) CKD (chronic kidney disease) stage 3, GFR 30-59 ml/min Code(s): N18.3 - CHRONIC KIDNEY DISEASE, STAGE 3 (MODERATE) Status: Chronic (8) Electrolyte abnormality Code(s): E87.8 - OTH DISORDERS OF ELECTROLYTE AND FLUID BALANCE, NEC Status: Acute (9) Other issues per previous notes - Plan 12/03 Change IV antibiotics to daptomycin. Change Bumex to torsemide per cardiology recommendation. INR 1.6 today. Patient can be discharged home if INR is therapeutic in a.m. per cardiology recommendation. Received 2 mg extra dose of warfarin this morning. Will increase warfarin to 4 mg daily LifeVest is pending at this time. Continue carvedilol, amiodarone, Entresto and other medications as above. Recheck PT/INR in a.m. 12/02 Continue Ancef with rifampin. Continue Entresto. INR therapeutic today. Await LifeVest and outpatient antibiotics set up. Await assistance with Entresto. Patient will require IV daptomycin for 6 weeks per infectious disease. Patient has thrombocytopenia without any bleeding. Recheck labs in a.m. continue other medications as above. 12/01 Patient received 2 units of PRBC per cardiology. Await outpatient antibiotics set up. Patient will require daptomycin for 6 weeks per infectious disease. Continue Ancef and rifampin for now. Will continue Entresto. INR today is supratherapeutic at 3.2. Warfarin dose will be held today. Will start warfarin at 3 mg from tomorrow per cardiology. Continue other medications as above 11/30 Hemoglobin gradually dropping. It is 7.7. INR today was 2.7. Patient receiving blood transfusion per cardiology recommendation. Continue Ancef with rifampin. manager material consulted for outpatient antibiotic setup. Continue physical therapy. Continue Entresto and Bumex. Monitor H&H. Check PT/INR in a.m. check reticulocyte in a.m. There is no ongoing bleeding identified continue other medications as above. 11/29 Patient underwent EMMA todayofficial report pending at this time. Continue antibiotics per ID (Ancef with rifampin). Replace magnesium. Continue amiodarone. Entresto started. INR 2.9 today. Continue current dose of warfarin. Check PT/INR and other labs in a.m. Continue other medications as above 11/28 Plan for EMMA in a.m. Warfarin dose reduced to 5 mg daily. Monitor INR. Continue physical therapy. Continue IV Ancef for the rifampin. Continue amiodarone, Bumex, zonisamide and other medications as above. 11/27 Continue IV Ancef with rifampin per infectious disease. Consult physical therapy. Consult pillowcase turner for home health care evaluation including antibiotics set up. Discontinue heparin drip since INR is therapeutic. Replace magnesium. Recheck labs in a.m. including PT INR. Plan discussed with patient and the family at the bedside Other chronic issueshistory of cocaine abuse, history of recent respiratory f ailure requiring intubation, history of aortic valve replacement on chronic anticoagulation
[2019-12-04] MEDS: Warfarin Sodium 2 MG TAB PO SCH (17:46)
[2019-12-04] MEDS: Cyanocobalamin (Vitamin B-12) 1,000 MCG TAB PO SCH (21:41)
[2019-12-05 04:51] LABS: Hemoglobin 9.4 g/dL (12.0-16.0); Platelet Count 61 thou/uL (130-400)
[2019-12-05 04:59] LABS: INR-International Normal Ratio 1.5; Prothrombin Time 18.3 sec (12.0-14.7)
[2019-12-05] MEDS: Carvedilol 6.25 MG TAB PO SCH ×2 (08:48→16:46)
[2019-12-05] MEDS ORDERED: Enoxaparin Sodium 60 MG/0.6 ML SYRINGE SC SCH ×2 (09:00→09:45)
[2019-12-05] MEDS: Zonisamide 100 MG CAP PO SCH ×2 (09:39→21:29)
[2019-12-05] MEDS: Aripiprazole 10 MG TAB PO SCH (09:39)
[2019-12-05] MEDS: Torsemide 10 MG TAB PO SCH (09:40)
[2019-12-05] MEDS: Folic Acid 1 MG TAB PO SCH (09:40)
[2019-12-05] MEDS: Gabapentin 100 MG CAP PO SCH ×3 (09:40→21:29)
[2019-12-05] MEDS: Sacubitril 49 MG/Valsartan 51 MG TABLET PO SCH ×2 (09:40→21:29)
[2019-12-05] MEDS: Amiodarone 200 MG TAB PO SCH (09:40)
[2019-12-05] MEDS: Thiamine 100 MG TAB PO SCH (09:40)
[2019-12-05] MEDS: Polyethylene Glycol 3350 17 GM Packet PO SCH (09:41)
[2019-12-05] MEDS: Senokot S 8.6-50 MG TAB PO SCH (09:41)
[2019-12-05] MEDS ORDERED: Warfarin Sodium 2 MG TAB PO SCH (09:45)
--- NOTE | 2019-12-05 10:07 | PRG ---
DATE OF SERVICE: 12/05/2019 SUBJECTIVE: Mrs. Marrero had an excellent day. She was able to ambulate. She was not short of breath. She is energetic. She is feeling well. She wants to go home. However, her INR was low, so it was thought that her INR needs to be in the therapeutic range before she is discharged. However, Mrs. Marrero said that she has a Coumadin clinic that she goes to in [place] and in the past she was taking warfarin at 7.5 mg twice a day to get a therapeutic range. She also asked about enoxaparin, so she can go home on enoxaparin. REVIEW OF SYSTEMS: GENERAL: There is no fever, chills, productive cough. HEENT: There is no change in vision, hearing or swallowing. She has difficulty hearing. She is tone deaf, so you have to speak closely. PULMONARY: There is no shortness of breath. CARDIAC: There is no palpitation, chest pain or syncope. GI: There is no nausea, vomiting, diarrhea. : She is able to urinate on her own. MUSCULOSKELETAL: She has had some back pain, but currently is pain free. INTEGUMENT: She does not complain of new skin breakdown. NEUROLOGIC: There are no focal deficits or weaknesses. MEDICATIONS: Include 1. Amiodarone 200 mg daily. 2. Abilify 5 mg daily. 3. Carvedilol 6.25 mg b.i.d. 4. Daptomycin 600 mg daily. 5. Neurontin 100 mg t.i.d. 6. Protonix 40 mg daily. 7. Sacubitril/valsartan at 49/51 combination, one tablet twice a day. 8. Senokot S one tablet daily. 9. Torsemide 10 mg daily. 10. Warfarin currently at 4 mg p.o. at bedtime. 11. Zonisamide 100 mg p.o. b.i.d. Her telemetry was reviewed. She has been remaining in sinus rhythm. However, she does have frequent PVCs. PHYSICAL EXAMINATION: VITAL SIGNS: Heart rate 91, blood pressure 98/61. Her Is and Os does not seem to be accurate. GENERAL: She is alert and conversational, she just ate her breakfast. HEENT: EOMI. Oropharynx benign. NECK: JVP is about 10 cm with positive hepatojugular reflux. PULMONARY: She has good air movement. It is clear to auscultation bilaterally. CARDIAC: Mostly regular rhythm but there is an occasional irregularity. There is mechanical valve click. There is 1/6 diastolic murmur at the right sternal border. There is 2/6 holosystolic murmur at the apex with radiation to the left axilla. ABDOMEN: Soft, nontender, mildly distended, positive bowel sounds. EXTREMITIES: Lower extremities are warm and well perfused, essentially without edema. LABORATORY DATA: There is no labs except for INR. INR came back at 1.5 today. ASSESSMENT: 64-year-old female who is making excellent progress in recovery from her mitral valve endocarditis. However, she resides in [place] Heart Association stage C, [place] heart Association class III heart failure with reduced ejection fraction due to nonischemic cardiomyopathy. She is on antibiotics for her endocarditis. A followup echocardiogram will need to be done to clear her for endocarditis. She is now on carvedilol and Entresto 49/51 for her heart failure with reduced ejection fraction. It is uncertain if she will improve. If she improves, it would be excellent. If she does not improve or worsens, then she will need advanced heart failure therapy. For now, it is at adequate because she is well compensated and essentially euvolemic. Her INR is still too low. Says we need to the use enoxaparin to cover as a bridge to INR being between 2 and 3 because of aortic mechanical valve. RECOMMENDATIONS: 1. Please use enoxaparin 1 mg/kg subcutaneous q.12 hours as a bridge. 2. Give warfarin 2 mg p.o. one dose now. We will see the effects of increasing the doses of warfarin until tomorrow. 3. Please consider sending the patient home with the enoxaparin 1 mg/kg enough supply for 2 weeks. I think she can to go to her Coumadin Clinic at [place] to have her INR adjusted. It has been a pleasure taking care of Mrs. Timmy Marrero. If any questions, please give me a call. The total time for this visit was about 30 minutes. This includes personally performing history and physical, reviewing data, coordinating care, and direct patient interaction. Job ID: [id number] [facility]
--- NOTE | 2019-12-05 10:59 | PDOC.CPN ---
- Subjective Date: 12/05/19 Time: 10:00 Interval history: No overnight events. INR low this morning. - Review of Systems General: reports: weight/appetite/sleep changes, fatigue Respiratory: denies: cough, congestion, shortness of breath, exercise intolerance Cardiovascular: denies: chest pain, palpitation, edema, paroxysmal nocturnal dyspnea, orthopnea Gastrointestinal: denies: nausea, vomiting, diarrhea, constipation, abd pain, GI bleeding Musculoskeletal: denies: pain, tenderness, stiffness, swelling, arthritis/arthralgias Neurological: denies: numbness, syncope, seizure, weakness - Objective Allergies/Adverse Reactions: Allergies Allergy/AdvReac Type Severity Reaction Status Date / Time Cephalosporins Allergy Verified 11/11/19 13:48 codeine Allergy Verified 11/11/19 13:48 Penicillins Allergy Verified 11/11/19 13:48 [id number] Reductase Allergy Verified 11/11/19 13:48 Inhibitor Sulfa (Sulfonamide Allergy Verified 11/11/19 13:48 Antibiotics) Visit Medications: Current Medications Acetaminophen (Acetaminophen 325 Mg Tab) 650 mg PO Q4H PRN PRN Reason: Headache/Fever/Mild Pain (1-3) Last Admin: 11/27/19 08:47 Dose: 650 mg Documented by: Albuterol/Ipratropium (Ipratropium/Albuterol Sulfate 3 Ml Neb) 3 ml NEB [id number] PRN PRN Reason: SOB &/or Wheezing Amiodarone HCl (Amiodarone 200 Mg Tab) 200 mg PO DAILY [facility] Last Admin: 12/05/19 09:40 Dose: 200 mg Documented by: Aripiprazole (Aripiprazole 10 Mg Tab) 5 mg PO DAILY [facility] Last Admin: 12/05/19 09:39 Dose: 5 mg Documented by: Carvedilol (Carvedilol 6.25 Mg Tab) 6.25 mg PO BID-[facility] Last Admin: 12/05/19 08:48 Dose: 6.25 mg Documented by: Clonidine (Clonidine 0.1 Mg Tab) 0.1 mg PO BID PRN PRN Reason: SBP > 160 use second Cyanocobalamin (Cyanocobalamin (Vitamin B-12) 1,000 Mcg Tab) 1,000 mcg PO HS [facility] Last Admin: 12/04/19 21:41 Dose: 1,000 mcg Documented by: Enoxaparin Sodium (Enoxaparin Sodium 60 Mg/0.6 Ml Syringe) 60 mg SC 0900,2099 [facility] Enoxaparin Sodium (Enoxaparin Sodium 60 Mg/0.6 Ml Syringe) 60 mg SC NOW [facility] Stop: 12/05/19 12:00 Last Admin: 12/05/19 10:24 Dose: 60 mg Documented by: Folic Acid (Folic Acid 1 Mg Tab) 1 mg PO DAILY [facility] Last Admin: 12/05/19 09:40 Dose: 1 mg Documented by: Gabapentin (Gabapentin 100 Mg Cap) 100 mg PO TID [facility] Last Admin: 12/05/19 09:40 Dose: 100 mg Documented by: Guaifenesin/Dextromethorphan (Guaifenesin Dm 100-10/5 Ml Udcup) 15 ml PO Q4H PRN PRN Reason: Cough Hydralazine HCl (Hydralazine 20 Mg/Ml Vial) 10 mg SLOW IVP Q6H PRN PRN Reason: SBP GREATER THAN 160 Promethazine HCl 12.5 mg/ (Sodium Chloride) 50.5 mls @ 202 mls/hr IVPB Q6H PRN PRN Reason: Nausea/vomiting use second Daptomycin 600 mg/ Sodium (Chloride) 100 mls @ 200 mls/hr IVPB 1200 [facility] Last Admin: 12/04/19 11:46 Dose: 100 mls Documented by: Labetalol HCl (Labetalol Hcl 100 Mg/20 Ml Vial) 20 mg SLOW IVP Q4H PRN PRN Reason: SBP > 160 use third Miscellaneous Medication (Pharmacy To Dose - Warfarin) 1 each IVPB PRN PRN PRN Reason: Pharmacy to dose Miscellaneous Medication (Electrolyte Replacement Protocol) 0 each FS ASDIR PRN; Protocol PRN Reason: ELECTROLYTE REPLACEMENT Ondansetron HCl (Ondansetron Pf 4 Mg/2 Ml Vial) 4 mg IVP Q6H PRN PRN Reason: Nausea/Vomiting use 1st Pantoprazole Sodium (Pantoprazole 40 Mg Tab) 40 mg PO DAILY [facility] Last Admin: 12/05/19 09:40 Dose: 40 mg Documented by: Polyethylene Glycol (Polyethylene Glycol 3350 17 Gm Packet) 17 gm PO DAILY [facility] Last Admin: 12/05/19 09:41 Dose: Not Given Documented by: Sacubitril/Valsartan (Sacubitril 49 Mg/Valsartan 51 Mg Tablet) 1 tab PO BID [facility] Last Admin: 12/05/19 09:40 Dose: 1 tab Documented by: Senna/Docusate Sodium (Senokot S 8.6-50 Mg Tab) 1 tab PO DAILY [facility] Last Admin: 12/05/19 09:41 Dose: Not Given Documented by: Sodium Chloride (Flush - Normal Saline 10 Ml Syringe) 10 ml IVF Q12HR [facility] Last Admin: 12/05/19 09:40 Dose: 10 ml Documented by: Sodium Chloride (Flush - Normal Saline 10 Ml Syringe) 10 ml IVF PRN PRN PRN Reason: Saline Flush Thiamine HCl (Thiamine 100 Mg Tab) 100 mg PO DAILY [facility] Last Admin: 12/05/19 09:40 Dose: 100 mg Documented by: Torsemide (Torsemide 10 Mg Tab) 10 mg PO DAILY [facility] Last Admin: 12/05/19 09:40 Dose: 10 mg Documented by: Warfarin Sodium (Warfarin Sodium 2 Mg Tab) 4 mg PO 1700 [facility] Last Admin: 12/04/19 17:46 Dose: 4 mg Documented by: Warfarin Sodium (Warfarin Sodium 2 Mg Tab) 2 mg PO NOW [facility] Stop: 12/05/19 12:00 Last Admin: 12/05/19 10:25 Dose: 2 mg Documented by: Zonisamide (Zonisamide 100 Mg Cap) 100 mg PO BID [facility] Last Admin: 12/05/19 09:39 Dose: 100 mg Documented by: Vital Signs & Weight: Vital Signs Temp Pulse Resp BP Pulse Ox 12/05/19 08:00 98.6 F 83 16 133/86 98 12/05/19 04:00 98 F 91 17 98/61 97 Admit Weight 136 lb 3.2 oz Weight 135 lb - Physical Exam General: alert & oriented x3, appears well Neck: supple neck Cardiac: systolic murmur Lungs: normal breath sounds Neuro: grossly intact Abdomen: soft, non-tender Extremities: no cyanosis, no clubbing Musculoskeletal: no pain - Labs Result Diagrams: 12/05/19 04:17 12/04/19 03:54 - Assessment/Plan Assessment/Plan: 1. MV endocarditis 2. s/p mechanical AVR 3. Cardiomyopathy 4. PVCs 5. Positive drug screen cocaine and meth 6. Anemia 7. NSVT history Continue ABX. INR remains subtherapeutic. CHF managed by Dr. Ochoa. On Amio for history of NSVT. Stable lytes. 12/05/2019 RG-Pt seen and examined. Agree with the above assessment. Added lovenox given low INR Watch platelets Increase coumadin INR 2-3
--- NOTE | 2019-12-05 11:16 | PDOC.HOSPP ---
- Subjective Encounter Date: 12/05/19 Encounter Time: 10:00 Subjective: wants to go home says she is ambulating in room no sob or chest pain feels better - Objective Vital Signs & Weight: Vital Signs (12 hours) Temp Pulse Resp BP Pulse Ox 12/05/19 08:00 98.6 F 83 16 133/86 98 12/05/19 04:00 98 F 91 17 98/61 97 Weight Admit Weight 136 lb 3.2 oz Weight 135 lb I&O: 12/04/19 12/05/19 12/06/19 06:59 06:59 06:59 Intake Total 1920 1926 Output Total 1300 1260 Balance 620 666 Result Diagrams: 12/05/19 04:17 12/04/19 03:54 Hospitalist ROS - Medication Medications: Active Medications Generic Name Dose Route Start Last Admin Trade Name Freq PRN Reason Stop Dose Admin Acetaminophen 650 mg 11/25/19 20:01 11/27/19 08:47 Acetaminophen 325 Mg Tab PO 650 mg Q4H PRN Administration Headache/Fever/Mild Pain (1-3) Amiodarone HCl 200 mg 11/28/19 09:00 12/05/19 09:40 Amiodarone 200 Mg Tab PO 200 mg DAILY ROBERT Administration Aripiprazole 5 mg 11/26/19 09:00 12/05/19 09:39 Aripiprazole 10 Mg Tab PO 5 mg DAILY ROBERT Administration Carvedilol 6.25 mg 12/02/19 17:00 12/05/19 08:48 Carvedilol 6.25 Mg Tab PO 6.25 mg BID-WM ROBERT Administration Cyanocobalamin 1,000 mcg 11/29/19 21:00 12/04/19 21:41 Cyanocobalamin (Vitamin B-12) 1,000 Mcg Tab PO 1,000 mcg HS ROBERT Administration Enoxaparin Sodium 60 mg 12/05/19 09:45 12/05/19 10:24 Enoxaparin Sodium 60 Mg/0.6 Ml Syringe SC 12/05/19 12:00 60 mg NOW ROBERT Administration Folic Acid 1 mg 11/26/19 09:00 12/05/19 09:40 Folic Acid 1 Mg Tab PO 1 mg DAILY ROBERT Administration Gabapentin 100 mg 11/26/19 09:00 12/05/19 09:40 Gabapentin 100 Mg Cap PO 100 mg TID ROBERT Administration Daptomycin 600 mg/ Sodium 100 mls @ 200 mls/hr 12/04/19 12:00 12/04/19 11:46 Chloride IVPB 100 mls 1200 ROBERT Administration Pantoprazole Sodium 40 mg 11/26/19 09:00 12/05/19 09:40 Pantoprazole 40 Mg Tab PO 40 mg DAILY ROBERT Administration Polyethylene Glycol 17 gm 11/26/19 09:00 12/05/19 09:41 Polyethylene Glycol 3350 17 Gm Packet PO Not Given DAILY ROBERT Sacubitril/Valsartan 1 tab 12/03/19 09:00 12/05/19 09:40 Sacubitril 49 Mg/Valsartan 51 Mg Tablet PO 1 tab BID ROBERT Administration Senna/Docusate Sodium 1 tab 11/30/19 09:00 12/05/19 09:41 Senokot S 8.6-50 Mg Tab PO Not Given DAILY [facility] Sodium Chloride 10 ml 11/27/19 09:00 12/05/19 09:40 Flush - Normal Saline 10 Ml Syringe IVF 10 ml Q12HR ROBERT Administration Thiamine HCl 100 mg 11/26/19 09:00 12/05/19 09:40 Thiamine 100 Mg Tab PO 100 mg DAILY ROBERT Administration Torsemide 10 mg 12/05/19 09:00 12/05/19 09:40 Torsemide 10 Mg Tab PO 10 mg DAILY ROBERT Administration Warfarin Sodium 4 mg 12/04/19 17:00 12/04/19 17:46 Warfarin Sodium 2 Mg Tab PO 4 mg 1700 ROBERT Administration Warfarin Sodium 2 mg 12/05/19 09:45 12/05/19 10:25 Warfarin Sodium 2 Mg Tab PO 12/05/19 12:00 2 mg NOW ROBERT Administration Zonisamide 100 mg 11/26/19 21:00 12/05/19 09:39 Zonisamide 100 Mg Cap PO 100 mg BID ROBERT Administration - Exam General Appearance: awake alert Eye: PERRL, anicteric sclera ENT: no oropharyngeal lesions, moist mucosa Neck: supple, no JVD Heart: RRR, murmur present Respiratory: no wheezes, no rales, rhonchi Gastrointestinal: soft, non-tender, non-distended, normal bowel sounds Extremities: no cyanosis, no edema Neurological: cranial nerve grossly intact, no focal deficits Hosp A/P (1) Endocarditis Code(s): I38 - ENDOCARDITIS, VALVE UNSPECIFIED Status: Acute Qualifiers: Endocarditis type: infective (2) Bacteremia Code(s): R78.81 - BACTEREMIA Status: Acute (3) Chronic systolic heart failure Code(s): I50.22 - CHRONIC SYSTOLIC (CONGESTIVE) HEART FAILURE Status: Chronic (4) H/O mechanical aortic valve replacement Code(s): Z95.2 - PRESENCE OF PROSTHETIC HEART VALVE Status: Chronic (5) Acute metabolic encephalopathy Code(s): G93.41 - METABOLIC ENCEPHALOPATHY Status: Acute (6) Cocaine use Code(s): F14.90 - COCAINE USE, UNSPECIFIED, UNCOMPLICATED Status: Chronic (7) Sepsis Code(s): A41.9 - SEPSIS, UNSPECIFIED ORGANISM Status: Acute - Plan is on daptomycin, torsamide, coreg, entresto, lovenox to bridge with coumadin 6mg today, amiodarone continue abilify, zonisamide and neurontin has life vest arranged inr is 1.5 awaiting inr to be therapeutic before dc hemostable has 1.5 cm post mitral valve vegetation with mod to severe mitral regurg
[2019-12-05] MEDS: DAPTOmycin 600 MG in Sodium Chloride 0.9% 100 ML IVPB SCH (12:44)
[2019-12-05] MEDS: Warfarin Sodium 2 MG TAB PO SCH (16:46)
[2019-12-05 16:50] LABS: #Basophils 0.1 thou/uL (0.0-0.2); #Eosinphils 0.2 thou/uL (0.0-0.7); #Lymphocytes 1.2 thou/uL (1.20-3.40); #Monocytes 0.3 thou/uL (0.11-0.59); #Neutrophils 1.9 thou/uL (1.40-6.50); %Basophils 1.9 % (0.0-1.0); %Eosinophils 4.4 % (0.0-10.0); %Lymphocytes 33.3 % (21.0-51.0); %Monocytes 8.6 % (0.0-10.0); %Neutrophils 51.8 % (42.0-75.0); Hemoglobin 10.4 g/dL (12.0-16.0); Mean Corpuscular HGB CONC 31.2 g/dL (32.0-36.0); Mean Corpuscular Hemoglobin 26.5 pg (27.0-31.0); Mean Corpuscular Volume 84.9 fL (78.0-98.0); Mean Platelet Volume 11.1 fL (7.4-10.4); Platelet Count 70 thou/uL (130-400); RBC Distribution Width 16.4 % (11.5-14.5); Red Blood Cell (RBC) Count 3.93 mill/uL (4.20-5.40); White Blood Cell (WBC) Count 3.7 thou/uL (4.8-10.8)
[2019-12-05] MEDS: Cyanocobalamin (Vitamin B-12) 1,000 MCG TAB PO SCH (21:29)
[2019-12-05] MEDS: Enoxaparin Sodium 60 MG/0.6 ML SYRINGE SC SCH (21:31)
[2019-12-06 04:28] LABS: INR-International Normal Ratio 1.6
[2019-12-06] MEDS: Enoxaparin Sodium 60 MG/0.6 ML SYRINGE SC SCH ×2 (09:13→23:35)
[2019-12-06] MEDS: Zonisamide 100 MG CAP PO SCH ×2 (09:14→23:34)
[2019-12-06] MEDS: Torsemide 10 MG TAB PO SCH (09:14)
[2019-12-06] MEDS: Amiodarone 200 MG TAB PO SCH (09:14)
[2019-12-06] MEDS: Carvedilol 6.25 MG TAB PO SCH ×2 (09:14→16:46)
[2019-12-06] MEDS: Folic Acid 1 MG TAB PO SCH (09:14)
[2019-12-06] MEDS: Thiamine 100 MG TAB PO SCH (09:14)
[2019-12-06] MEDS: Sacubitril 49 MG/Valsartan 51 MG TABLET PO SCH ×2 (09:14→23:34)
[2019-12-06] MEDS: Gabapentin 100 MG CAP PO SCH ×3 (09:15→23:34)
[2019-12-06] MEDS: Aripiprazole 10 MG TAB PO SCH (09:15)
[2019-12-06] MEDS: Polyethylene Glycol 3350 17 GM Packet PO SCH (09:16)
[2019-12-06] MEDS: Senokot S 8.6-50 MG TAB PO SCH (09:16)
[2019-12-06] MEDS ORDERED: Carvedilol 6.25 MG TAB PO SCH (10:30)
[2019-12-06] MEDS ORDERED: Warfarin Sodium 3 MG TAB PO SCH ×2 (10:30→17:00)
--- NOTE | 2019-12-06 10:48 | PRG ---
DATE OF SERVICE: 12/06/2019 SERVICE: [facility]. SUBJECTIVE: Ms. Marrero had a good day. She was able to ambulate throughout the unit with PT without any difficulty. She is not short of breath, feeling well. States she just wants to go home. REVIEW OF SYSTEMS: GENERAL: There is no fever, chills, or productive cough. HEENT: There is no change in vision, hearing, or swallowing. She is somewhat hard of hearing. PULMONARY: There is no shortness of breath. CARDIAC: There is no chest pain, palpitations, or syncope. GI: There is no nausea, vomiting, or diarrhea. : She is able to urinate well on her own. MUSCULOSKELETAL: She is not complaining of any joint pains. INTEGUMENT: There is no new skin breakdown. NEUROLOGIC: There are no new focal deficits or weaknesses. CURRENT MEDICATIONS: 1. Amiodarone 200 mg daily. 2. Abilify 5 mg daily. 3. Carvedilol 6.25 mg b.i.d. 4. Vitamin B12 1000 mcg nightly. 5. Daptomycin 600 mg daily. 6. Enoxaparin 60 mg subcutaneous b.i.d. 7. Folic acid 1 mg daily. 8. Gabapentin 100 mg t.i.d. 9. Protonix 40 mg daily. 10. MiraLAX 17 g daily. 11. Sacubitril/valsartan, which is Entresto, 49/51 combination one tablet twice a day. 12. Thiamine 100 mg daily. 13. Torsemide 10 mg daily. 14. Warfarin 6 mg daily. 15. Zonisamide 100 mg b.i.d. PHYSICAL EXAMINATION: Telemetry was reviewed. She is in sinus rhythm, first-degree AV block; however, she has many many PVCs. VITAL SIGNS: Her vital signs are heart rate 86, blood pressure 138/75. Input and output for the last 24 hours, 1300 in, 1700 out, so is -400 mL. Thus, torsemide 10 mg daily is sufficient. GENERAL: She is alert and conversational, sitting, well relaxed. No acute distress. HEENT: Show EOMI. Oropharynx is benign with moist mucosa. NECK: JVP about 9 cm and negative hepatojugular reflux. PULMONARY: There is good air movement bilateral. There are no crackles. CARDIAC: Regular rate and rhythm with normal S1, S2. There is occasional irregularity. There is mechanical aortic valve click. There is 1/6 diastolic murmur at the right sternal border. There is also 2/6 holosystolic murmur at apex with radiation to the left axilla. ABDOMEN: Soft, nontender. Positive bowel sounds. LOWER EXTREMITIES: Warm and well perfused. There is no edema. There are palpable dorsalis pedis pulses. LABORATORY DATA: Her INR is only at 1.6. There are no other new labs today. 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 She is on antibiotics for this. She has [employer] stage C and [place] Heart Association class III heart failure with reduced ejection fraction. She has both systolic and diastolic dysfunction. She is improving on the mid-range dose of Entresto. However, she has many premature ventricular contractions, on carvedilol 6.25, but this can be titrated up. She currently appears to be well compensated, euvolemic. Please see the following for my recommendations: RECOMMENDATIONS: 1. Increase carvedilol to 12.5 mg p.o. b.i.d. 2. Give an additional warfarin at 2 mg now. 3. Continue monitor CBC. 4. Continue to use enoxaparin bridge until INR reaches 2-3 range It has been a pleasure taking care of Ms. Marrero. If any questions, please give me a call. The visitation time is about 30 minutes today. This includes personally performing history and physical, reviewing data, coordinating care, and direct patient interaction. Job ID: [id number] MTDD
--- NOTE | 2019-12-06 10:54 | PDOC.HOSPP ---
- Subjective Encounter Date: 12/06/19 Encounter Time: 08:15 Subjective: is sitting on bed, no complaints feels better, is eager to go home - Objective Vital Signs & Weight: Vital Signs (12 hours) Temp Pulse Resp BP Pulse Ox 12/06/19 07:30 98.6 F 86 16 138/75 96 12/06/19 04:00 98.5 F 80 15 141/68 H 98 12/05/19 23:48 76 127/56 L Weight Admit Weight 136 lb 3.2 oz Weight 136 lb I&O: 12/05/19 12/06/19 12/07/19 06:59 06:59 06:59 Intake Total 1926 1300 Output Total 1260 1700 Balance 666 -400 Result Diagrams: 12/05/19 16:39 12/04/19 03:54 Hospitalist ROS - Medication Medications: Active Medications Generic Name Dose Route Start Last Admin Trade Name Freq PRN Reason Stop Dose Admin Acetaminophen 650 mg 11/25/19 20:01 11/27/19 08:47 Acetaminophen 325 Mg Tab PO 650 mg Q4H PRN Administration Headache/Fever/Mild Pain (1-3) Amiodarone HCl 200 mg 11/28/19 09:00 12/06/19 09:14 Amiodarone 200 Mg Tab PO 200 mg DAILY ROBERT Administration Aripiprazole 5 mg 11/26/19 09:00 12/06/19 09:15 Aripiprazole 10 Mg Tab PO 5 mg DAILY ROBERT Administration Cyanocobalamin 1,000 mcg 11/29/19 21:00 12/05/19 21:29 Cyanocobalamin (Vitamin B-12) 1,000 Mcg Tab PO 1,000 mcg HS ROBERT Administration Enoxaparin Sodium 60 mg 12/05/19 21:00 12/06/19 09:13 Enoxaparin Sodium 60 Mg/0.6 Ml Syringe SC 60 mg 0900,2100 ROBERT Administration Folic Acid 1 mg 11/26/19 09:00 12/06/19 09:14 Folic Acid 1 Mg Tab PO 1 mg DAILY ROBERT Administration Gabapentin 100 mg 11/26/19 09:00 12/06/19 09:15 Gabapentin 100 Mg Cap PO 100 mg TID ROBERT Administration Daptomycin 600 mg/ Sodium 100 mls @ 200 mls/hr 12/04/19 12:00 12/05/19 12:44 Chloride IVPB 100 mls 1200 ROBERT Administration Pantoprazole Sodium 40 mg 11/26/19 09:00 12/06/19 09:14 Pantoprazole 40 Mg Tab PO 40 mg DAILY ROBERT Administration Polyethylene Glycol 17 gm 11/26/19 09:00 12/06/19 09:16 Polyethylene Glycol 3350 17 Gm Packet PO Not Given DAILY ROBERT Sacubitril/Valsartan 1 tab 12/03/19 09:00 12/06/19 09:14 Sacubitril 49 Mg/Valsartan 51 Mg Tablet PO 1 tab BID ROBERT Administration Senna/Docusate Sodium 1 tab 11/30/19 09:00 12/06/19 09:16 Senokot S 8.6-50 Mg Tab PO Not Given DAILY ROBERT Sodium Chloride 10 ml 11/27/19 09:00 12/06/19 09:16 Flush - Normal Saline 10 Ml Syringe IVF 10 ml Q12HR ROBERT Administration Thiamine HCl 100 mg 11/26/19 09:00 12/06/19 09:14 Thiamine 100 Mg Tab PO 100 mg DAILY ROBERT Administration Torsemide 10 mg 12/05/19 09:00 12/06/19 09:14 Torsemide 10 Mg Tab PO 10 mg DAILY ROBERT Administration Zonisamide 100 mg 11/26/19 21:00 12/06/19 09:14 Zonisamide 100 Mg Cap PO 100 mg BID ROBERT Administration - Exam General Appearance: awake alert Eye: PERRL, anicteric sclera ENT: no oropharyngeal lesions, moist mucosa Neck: supple, no JVD Heart: RRR, murmur present Respiratory: no wheezes, no rales Gastrointestinal: soft, non-tender, non-distended, normal bowel sounds Extremities: no cyanosis, no edema Neurological: cranial nerve grossly intact, no focal deficits Hosp A/P (1) Endocarditis Code(s): I38 - ENDOCARDITIS, VALVE UNSPECIFIED Status: Acute Qualifiers: Endocarditis type: infective (2) Bacteremia Code(s): R78.81 - BACTEREMIA Status: Acute (3) Chronic systolic heart failure Code(s): I50.22 - CHRONIC SYSTOLIC (CONGESTIVE) HEART FAILURE Status: Chronic (4) H/O mechanical aortic valve replacement Code(s): Z95.2 - PRESENCE OF PROSTHETIC HEART VALVE Status: Chronic (5) Acute metabolic encephalopathy Code(s): G93.41 - METABOLIC ENCEPHALOPATHY Status: Acute (6) Cocaine use Code(s): F14.90 - COCAINE USE, UNSPECIFIED, UNCOMPLICATED Status: Chronic (7) Sepsis Code(s): A41.9 - SEPSIS, UNSPECIFIED ORGANISM Status: Acute - Plan is on daptomycin, torsamide, coreg, entresto, lovenox to bridge with coumadin (6+3) 9mg today, amiodarone continue abilify, zonisamide and neurontin has life vest arranged inr is 1.6 awaiting inr to be therapeutic before dc hemostable has 1.5 cm post mitral valve vegetation with mod to severe mitral regurg
[2019-12-06 11:23] LABS: #Basophils 0.1 thou/uL (0.0-0.2); #Eosinphils 0.2 thou/uL (0.0-0.7); #Lymphocytes 1.2 thou/uL (1.20-3.40); #Monocytes 0.3 thou/uL (0.11-0.59); #Neutrophils 2.3 thou/uL (1.40-6.50); %Basophils 1.4 % (0.0-1.0); %Eosinophils 4.6 % (0.0-10.0); %Lymphocytes 29.4 % (21.0-51.0); %Monocytes 8.2 % (0.0-10.0); %Neutrophils 56.3 % (42.0-75.0); Mean Corpuscular HGB CONC 31.4 g/dL (32.0-36.0); Mean Corpuscular Hemoglobin 26.6 pg (27.0-31.0); Mean Corpuscular Volume 84.8 fL (78.0-98.0); Mean Platelet Volume 11.2 fL (7.4-10.4); Platelet Count 81 thou/uL (130-400); RBC Distribution Width 16.5 % (11.5-14.5); Red Blood Cell (RBC) Count 4.12 mill/uL (4.20-5.40); White Blood Cell (WBC) Count 4.1 thou/uL (4.8-10.8)
--- NOTE | 2019-12-06 11:25 | PDOC.CPN ---
- Subjective Date: 12/06/19 Time: 11:24 Interval history: Patient feeling well. No complaints. - Review of Systems General: denies: fever/chills, weight/appetite/sleep changes, night sweats, fatigue Respiratory: denies: cough, congestion, shortness of breath, exercise intolerance Cardiovascular: denies: chest pain, palpitation, edema, paroxysmal nocturnal dyspnea, orthopnea Gastrointestinal: denies: nausea, vomiting, diarrhea, constipation, abd pain, GI bleeding Musculoskeletal: denies: pain, tenderness, stiffness, swelling, arthritis/arthralgias Neurological: denies: numbness, syncope, seizure, weakness - Objective Allergies/Adverse Reactions: Allergies Allergy/AdvReac Type Severity Reaction Status Date / Time Cephalosporins Allergy Verified 11/11/19 13:48 codeine Allergy Verified 11/11/19 13:48 Penicillins Allergy Verified 11/11/19 13:48 Vhzduka-Cgd-[id number] Reductase Allergy Verified 11/11/19 13:48 Inhibitor Sulfa (Sulfonamide Allergy Verified 11/11/19 13:48 Antibiotics) Visit Medications: Current Medications Acetaminophen (Acetaminophen 325 Mg Tab) 650 mg PO Q4H PRN PRN Reason: Headache/Fever/Mild Pain (1-3) Last Admin: 11/27/19 08:47 Dose: 650 mg Documented by: Albuterol/Ipratropium (Ipratropium/Albuterol Sulfate 3 Ml Neb) 3 ml NEB [id number] PRN PRN Reason: SOB &/or Wheezing Amiodarone HCl (Amiodarone 200 Mg Tab) 200 mg PO DAILY [facility] Last Admin: 12/06/19 09:14 Dose: 200 mg Documented by: Aripiprazole (Aripiprazole 10 Mg Tab) 5 mg PO DAILY [facility] Last Admin: 12/06/19 09:15 Dose: 5 mg Documented by: Carvedilol (Carvedilol 6.25 Mg Tab) 6.25 mg PO NOW [facility] Stop: 12/06/19 12:00 Last Admin: 12/06/19 11:20 Dose: 6.25 mg Documented by: Carvedilol (Carvedilol 6.25 Mg Tab) 12.5 mg PO BID-[facility] Clonidine (Clonidine 0.1 Mg Tab) 0.1 mg PO BID PRN PRN Reason: SBP > 160 use second Cyanocobalamin (Cyanocobalamin (Vitamin B-12) 1,000 Mcg Tab) 1,000 mcg PO HS [facility] Last Admin: 12/05/19 21:29 Dose: 1,000 mcg Documented by: Enoxaparin Sodium (Enoxaparin Sodium 60 Mg/0.6 Ml Syringe) 60 mg SC 09,2099 [facility] Last Admin: 12/06/19 09:13 Dose: 60 mg Documented by: Folic Acid (Folic Acid 1 Mg Tab) 1 mg PO DAILY [facility] Last Admin: 12/06/19 09:14 Dose: 1 mg Documented by: Gabapentin (Gabapentin 100 Mg Cap) 100 mg PO TID [facility] Last Admin: 12/06/19 09:15 Dose: 100 mg Documented by: Guaifenesin/Dextromethorphan (Guaifenesin Dm 100-10/5 Ml Udcup) 15 ml PO Q4H PRN PRN Reason: Cough Hydralazine HCl (Hydralazine 20 Mg/Ml Vial) 10 mg SLOW IVP Q6H PRN PRN Reason: SBP GREATER THAN 160 Promethazine HCl 12.5 mg/ (Sodium Chloride) 50.5 mls @ 202 mls/hr IVPB Q6H PRN PRN Reason: Nausea/vomiting use second Daptomycin 600 mg/ Sodium (Chloride) 100 mls @ 200 mls/hr IVPB 1200 [facility] Last Admin: 12/05/19 12:44 Dose: 100 mls Documented by: Labetalol HCl (Labetalol Hcl 100 Mg/20 Ml Vial) 20 mg SLOW IVP Q4H PRN PRN Reason: SBP > 160 use third Miscellaneous Medication (Pharmacy To Dose - Warfarin) 1 each IVPB PRN PRN PRN Reason: Pharmacy to dose Miscellaneous Medication (Electrolyte Replacement Protocol) 0 each FS ASDIR PRN; Protocol PRN Reason: ELECTROLYTE REPLACEMENT Ondansetron HCl (Ondansetron Pf 4 Mg/2 Ml Vial) 4 mg IVP Q6H PRN PRN Reason: Nausea/Vomiting use 1st Pantoprazole Sodium (Pantoprazole 40 Mg Tab) 40 mg PO DAILY [facility] Last Admin: 12/06/19 09:14 Dose: 40 mg Documented by: Polyethylene Glycol (Polyethylene Glycol 3350 17 Gm Packet) 17 gm PO DAILY [facility] Last Admin: 12/06/19 09:16 Dose: Not Given Documented by: Sacubitril/Valsartan (Sacubitril 49 Mg/Valsartan 51 Mg Tablet) 1 tab PO BID [facility] Last Admin: 12/06/19 09:14 Dose: 1 tab Documented by: Senna/Docusate Sodium (Senokot S 8.6-50 Mg Tab) 1 tab PO DAILY [facility] Last Admin: 12/06/19 09:16 Dose: Not Given Documented by: Sodium Chloride (Flush - Normal Saline 10 Ml Syringe) 10 ml IVF Q12HR [facility] Last Admin: 12/06/19 09:16 Dose: 10 ml Documented by: Sodium Chloride (Flush - Normal Saline 10 Ml Syringe) 10 ml IVF PRN PRN PRN Reason: Saline Flush Thiamine HCl (Thiamine 100 Mg Tab) 100 mg PO DAILY [facility] Last Admin: 12/06/19 09:14 Dose: 100 mg Documented by: Torsemide (Torsemide 10 Mg Tab) 10 mg PO DAILY [facility] Last Admin: 12/06/19 09:14 Dose: 10 mg Documented by: Warfarin Sodium (Warfarin Sodium 3 Mg Tab) 6 mg PO 1700 [facility] Warfarin Sodium (Warfarin Sodium 3 Mg Tab) 3 mg PO NOW [facility] Stop: 12/06/19 12:00 Last Admin: 12/06/19 11:21 Dose: 3 mg Documented by: Zonisamide (Zonisamide 100 Mg Cap) 100 mg PO BID [facility] Last Admin: 12/06/19 09:14 Dose: 100 mg Documented by: Vital Signs & Weight: Vital Signs Temp Pulse Resp BP Pulse Ox 12/06/19 07:30 98.6 F 86 16 138/75 96 12/06/19 04:00 98.5 F 80 15 141/68 H 98 12/05/19 23:48 76 127/56 L Admit Weight 136 lb 3.2 oz Weight 136 lb - Physical Exam General: alert & oriented x3, appears well, no apparent distress Neck: supple neck Cardiac: other (IRR IRR, AV click. 2/6 SM at apex) Lungs: no wheeze, rales, rhonchi Neuro: grossly intact Abdomen: soft, non-tender Extremities: no cyanosis, no clubbing, no edema Skin: clear Musculoskeletal: no pain - Labs Result Diagrams: 12/06/19 10:32 12/04/19 03:54 - Assessment/Plan Assessment/Plan: 1. MV endocarditis 2. s/p mechanical AVR 3. Cardiomyopathy 4. PVCs 5. Positive drug screen cocaine and meth 6. Anemia 7. NSVT history BBlocker increased today by Dr. Ochoa. Await INR to become therapeutic. Adjusted by Don. Patient symptomatically doing well. No changes on my part.
[2019-12-06] MEDS: DAPTOmycin 600 MG in Sodium Chloride 0.9% 100 ML IVPB SCH (12:01)
[2019-12-06] MEDS: Cyanocobalamin (Vitamin B-12) 1,000 MCG TAB PO SCH (23:34)
[2019-12-07 04:24] LABS: #Eosinphils 0.1 thou/uL (0.0-0.7); #Lymphocytes 1.3 thou/uL (1.20-3.40); #Monocytes 0.2 thou/uL (0.11-0.59); #Neutrophils 1.1 thou/uL (1.40-6.50); %Basophils 1.5 % (0.0-1.0); %Eosinophils 4.7 % (0.0-10.0); %Lymphocytes 47.4 % (21.0-51.0); %Monocytes 7.5 % (0.0-10.0); Hemoglobin 9.3 g/dL (12.0-16.0); Mean Corpuscular HGB CONC 31.4 g/dL (32.0-36.0); Mean Corpuscular Hemoglobin 26.8 pg (27.0-31.0); Mean Corpuscular Volume 85.2 fL (78.0-98.0); Mean Platelet Volume 11.5 fL (7.4-10.4); Platelet Count 64 thou/uL (130-400); RBC Distribution Width 16.4 % (11.5-14.5); Red Blood Cell (RBC) Count 3.47 mill/uL (4.20-5.40); White Blood Cell (WBC) Count 2.8 thou/uL (4.8-10.8)
[2019-12-07 04:39] LABS: INR-International Normal Ratio 1.5; Prothrombin Time 18.5 sec (12.0-14.7)
[2019-12-07 04:41] LABS: Anion Gap 13 mmol/L (10-20); BUN (Urea Nitrogen) 23 mg/dL (9.8-20.1); Calc. Creatinine Clearance 43 mL/min (70-130); Calcium 8.6 mg/dL (7.8-10.44); Carbon Dioxide 20 mmol/L (23-31); Chloride 107 mmol/L (98-107); Estimated GFR-MDRD 42; Glucose 86 mg/dL (80-115); Magnesium 1.8 mg/dL (1.6-2.6); Potassium 4.4 mmol/L (3.5-5.1); Sodium 136 mmol/L (136-145)
[2019-12-07] MEDS ORDERED: Magnesium 2 GM/50 ML 2 GM in Premix Bag 1 BAG IVPB SCH ×2 (06:45→11:45)
[2019-12-07] MEDS: Zonisamide 100 MG CAP PO SCH ×2 (09:32→20:32)
[2019-12-07] MEDS: Polyethylene Glycol 3350 17 GM Packet PO SCH (09:32)
[2019-12-07] MEDS: Amiodarone 200 MG TAB PO SCH (09:32)
[2019-12-07] MEDS: Aripiprazole 10 MG TAB PO SCH (09:32)
[2019-12-07] MEDS: Senokot S 8.6-50 MG TAB PO SCH (09:33)
[2019-12-07] MEDS: Sacubitril 49 MG/Valsartan 51 MG TABLET PO SCH ×2 (09:33→20:32)
[2019-12-07] MEDS: Folic Acid 1 MG TAB PO SCH (09:34)
[2019-12-07] MEDS: Thiamine 100 MG TAB PO SCH (09:34)
[2019-12-07] MEDS: Gabapentin 100 MG CAP PO SCH ×3 (09:34→20:32)
[2019-12-07] MEDS: Torsemide 10 MG TAB PO SCH ×2 (09:35→12:46)
[2019-12-07] MEDS: Carvedilol 6.25 MG TAB PO SCH ×2 (09:38→17:16)
[2019-12-07] MEDS: Enoxaparin Sodium 60 MG/0.6 ML SYRINGE SC SCH ×2 (09:49→21:57)
--- NOTE | 2019-12-07 10:59 | PDOC.HOSPP ---
- Subjective Encounter Date: 12/07/19 Encounter Time: 10:00 Subjective: is sitting in chair, no sob or palp feels good, eating well and mobilizing in room - Objective Vital Signs & Weight: Vital Signs (12 hours) Temp Pulse Resp BP Pulse Ox 12/07/19 07:13 98.1 F 87 12 125/60 97 12/07/19 04:00 98.4 F 82 119/66 97 Weight Admit Weight 136 lb 3.2 oz Weight 136 lb I&O: 12/06/19 12/07/19 12/08/19 06:59 06:59 06:59 Intake Total 1300 940 Output Total 1700 550 Balance -400 390 Result Diagrams: 12/07/19 03:46 12/07/19 03:46 Hospitalist ROS - Medication Medications: Active Medications Generic Name Dose Route Start Last Admin Trade Name Freq PRN Reason Stop Dose Admin Acetaminophen 650 mg 11/25/19 20:01 11/27/19 08:47 Acetaminophen 325 Mg Tab PO 650 mg Q4H PRN Administration Headache/Fever/Mild Pain (1-3) Amiodarone HCl 200 mg 11/28/19 09:00 12/07/19 09:32 Amiodarone 200 Mg Tab PO 200 mg DAILY ROBERT Administration Aripiprazole 5 mg 11/26/19 09:00 12/07/19 09:32 Aripiprazole 10 Mg Tab PO 5 mg DAILY ROBERT Administration Carvedilol 12.5 mg 12/06/19 17:00 12/07/19 09:38 Carvedilol 6.25 Mg Tab PO 12.5 mg BID-WM ROBERT Administration Enoxaparin Sodium 60 mg 12/05/19 21:00 12/07/19 09:49 Enoxaparin Sodium 60 Mg/0.6 Ml Syringe SC Not Given 899,2099 ROBERT Folic Acid 1 mg 11/26/19 09:00 12/07/19 09:34 Folic Acid 1 Mg Tab PO 1 mg DAILY ROBERT Administration Gabapentin 100 mg 11/26/19 09:00 12/07/19 09:34 Gabapentin 100 Mg Cap PO 100 mg TID ROBERT Administration Daptomycin 600 mg/ Sodium 100 mls @ 200 mls/hr 12/04/19 12:00 12/06/19 12:01 Chloride IVPB 100 mls 1200 ROBERT Administration Pantoprazole Sodium 40 mg 11/26/19 09:00 12/07/19 09:34 Pantoprazole 40 Mg Tab PO 40 mg DAILY ROBERT Administration Polyethylene Glycol 17 gm 11/26/19 09:00 12/07/19 09:32 Polyethylene Glycol 3350 17 Gm Packet PO Not Given DAILY [facility]ERT Sacubitril/Valsartan 1 tab 12/03/19 09:00 12/07/19 09:33 Sacubitril 49 Mg/Valsartan 51 Mg Tablet PO 1 tab BID ROBERT Administration Senna/Docusate Sodium 1 tab 11/30/19 09:00 12/07/19 09:33 Senokot S 8.6-50 Mg Tab PO Not Given DAILY [facility]ERT Sodium Chloride 10 ml 11/27/19 09:00 12/07/19 09:38 Flush - Normal Saline 10 Ml Syringe IVF 10 ml Q12HR ROBERT Administration Torsemide 10 mg 12/05/19 09:00 12/07/19 09:35 Torsemide 10 Mg Tab PO 10 mg DAILY ROBERT Administration Zonisamide 100 mg 11/26/19 21:00 12/07/19 09:32 Zonisamide 100 Mg Cap PO 100 mg BID ROBERT Administration - Exam General Appearance: awake alert Eye: PERRL, anicteric sclera ENT: no oropharyngeal lesions, moist mucosa Neck: supple, no JVD Heart: RRR, murmur present Respiratory: no wheezes, no rales Gastrointestinal: soft, non-tender, non-distended, normal bowel sounds Extremities: no cyanosis, no edema Neurological: cranial nerve grossly intact, no focal deficits Hosp A/P (1) Endocarditis Code(s): I38 - ENDOCARDITIS, VALVE UNSPECIFIED Status: Acute Qualifiers: Endocarditis type: infective (2) Bacteremia Code(s): R78.81 - BACTEREMIA Status: Acute (3) Chronic systolic heart failure Code(s): I50.22 - CHRONIC SYSTOLIC (CONGESTIVE) HEART FAILURE Status: Chronic (4) H/O mechanical aortic valve replacement Code(s): Z95.2 - PRESENCE OF PROSTHETIC HEART VALVE Status: Chronic (5) Acute metabolic encephalopathy Code(s): G93.41 - METABOLIC ENCEPHALOPATHY Status: Resolved (6) Cocaine use Code(s): F14.90 - COCAINE USE, UNSPECIFIED, UNCOMPLICATED Status: Chronic (7) Sepsis Code(s): A41.9 - SEPSIS, UNSPECIFIED ORGANISM Status: Resolved - Plan is on daptomycin, torsamide, coreg, entresto, lovenox to bridge with coumadin 10 mg today, amiodarone continue abilify, zonisamide and neurontin I have dc'd thiamine and B12 to see if her inr comes up has life vest arranged inr is 1.5 awaiting inr to be therapeutic before dc hemostable has 1.5 cm post mitral valve vegetation with mod to severe mitral regurg
[2019-12-07] MEDS ORDERED: Warfarin Sodium 5 MG TAB PO SCH (11:45)
[2019-12-07] MEDS: DAPTOmycin 600 MG in Sodium Chloride 0.9% 100 ML IVPB SCH (13:26)
--- NOTE | 2019-12-07 13:47 | PRG ---
DATE OF SERVICE: 12/07/2019 SERVICE: [facility]. SUBJECTIVE: Ms. Marrero had a good day. She went walking twice. First time was 600 feet with PT. The second time she walked 300 feet with an aide. She did not have any trouble. She felt good afterwards. She said she felt good all day, had a good night sleep. There is no orthopnea or PND. There is no edema. She wants to go home. REVIEW OF SYSTEMS: GENERAL: There is no fever, chills, or productive cough. HEENT: There is no change in vision, hearing, or swallowing. However, she has chronic difficulty hearing due to being tone deaf. PULMONARY: See HPI. CARDIAC: There is no chest pain, palpitations, or syncope. GI: She is eating well. There is no nausea, vomiting, or diarrhea. : She is urinating well. MUSCULOSKELETAL: She is not complaining of any pains. INTEGUMENT: She is not complaining of any skin breakdowns. NEUROLOGIC: There are no focal deficits or weaknesses. CURRENT MEDICATIONS: That have cardiac effect include: 1. Amiodarone 200 mg daily. 2. Abilify 5 mg daily. 3. Carvedilol at 12.5 mg b.i.d. 4. Daptomycin at 600 mg daily. 5. Enoxaparin 60 mg subcutaneous twice a day. 6. Gabapentin 100 mg t.i.d. 7. Protonix 40 mg daily. 8. MiraLAX 17 g daily. 9. Entresto 49/51 tablets one tablet twice a day. 10. Torsemide 10 mg daily. 11. Warfarin has been increased to 10 mg daily because her INR was lower today at 1.5. Telemetry was reviewed. She has predominantly sinus rhythm. She has mainly PVCs. About 10:30 this morning, there were short 8-beat runs of ventricular tachycardia. PHYSICAL EXAMINATION: LATEST VITAL SIGNS: Heart rate 87, blood pressure 125/60. GENERAL: She is alert, conversational. She is walking about the room. HEENT: Show EOMI. Oropharynx is benign with moist mucosa. NECK: JVP is about 9 cm. Negative hepatojugular reflux. PULMONARY: There is good air movement. Clear to auscultation bilaterally. CARDIAC: Mostly regular rate and rhythm, but occasional irregularity. There is S1 and S2, with definite mechanical valve systolic clicks. There is a 1/6 diastolic murmur at the right sternal border. There is a 2/6 holosystolic murmur at the apex with radiation to the left axilla. ABDOMEN: Soft, nontender. Positive bowel sounds. EXTREMITIES: Lower extremities are well perfused. Very little edema if any. LABORATORY VALUES: White cell count 2.1, hemoglobin 9.3, platelets 64. Her chemistry are sodium 136, potassium 4.4, bicarb of 20, BUN 23, creatinine 1.29. Her magnesium is only 1.8 today. 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 She is being treated with daptomycin for this. She has [place] Heart Association stage C, [place] Heart Association class III heart failure with reduced ejection fraction due to nonischemic cardiomyopathy. She has both systolic and diastolic dysfunctions. Currently, she is well compensated and euvolemic. However, she has nonsustained ventricular tachycardia. This is likely due to her cardiomyopathy. She is already on amiodarone. She has a LifeVest on already. However, her magnesium is low, so we will need to supplement her magnesium. She has aortic valve replacement with mechanical valve. Her INR is too low. She received a total of 9 mg of warfarin yesterday, so this is not going to be sufficient. This needs to be titrated up. Please see the following for my recommendation. RECOMMENDATION: 1. Magnesium sulfate 2 g IV one dose for now. 2. Magnesium oxide 400 mg by mouth twice per day. 3. Increase frequency of torsemide to 10 mg twice a day for now, we will decrease again. 4. Please give warfarin 5 mg orally one dose for now. 5. Agree with warfarin over 10 mg tonight. She may need quite a bit of warfarin for her to be loaded. It has been a pleasure taking care of Ms. Marrero. If you have any questions, please give me a call. The total time for this visit is 30 minutes. This included personally performing history and physical, reviewing data, coordinating care, and direct patient interaction. Job ID: [id number] MTDD
[2019-12-07] MEDS ORDERED: Warfarin Sodium 3 MG TAB PO SCH (17:00)
[2019-12-07] MEDS: Warfarin Sodium 10 MG TAB PO SCH (17:16)
[2019-12-07] MEDS: Magnesium Oxide 400 MG TAB PO SCH (20:32)
[2019-12-08 04:54] LABS: #Eosinphils 0.2 thou/uL (0.0-0.7); #Lymphocytes 0.9 thou/uL (1.20-3.40); #Monocytes 0.3 thou/uL (0.11-0.59); #Neutrophils 1.3 thou/uL (1.40-6.50); %Basophils 1.6 % (0.0-1.0); %Eosinophils 8.5 % (0.0-10.0); %Lymphocytes 34.2 % (21.0-51.0); %Monocytes 9.3 % (0.0-10.0); %Neutrophils 46.5 % (42.0-75.0); INR-International Normal Ratio 1.5; Mean Corpuscular HGB CONC 31.2 g/dL (32.0-36.0); Mean Corpuscular Hemoglobin 26.4 pg (27.0-31.0); Mean Corpuscular Volume 84.5 fL (78.0-98.0); Mean Platelet Volume 10.9 fL (7.4-10.4); Platelet Count 74 thou/uL (130-400); Prothrombin Time 18.1 sec (12.0-14.7); RBC Distribution Width 16.6 % (11.5-14.5); Red Blood Cell (RBC) Count 3.42 mill/uL (4.20-5.40); White Blood Cell (WBC) Count 2.7 thou/uL (4.8-10.8)
[2019-12-08 04:57] LABS: Hemoglobin 9.2 g/dL (12.0-16.0); Platelet Count 72 thou/uL (130-400)
[2019-12-08 05:04] LABS: Anion Gap 15 mmol/L (10-20); BUN (Urea Nitrogen) 25 mg/dL (9.8-20.1); Calc. Creatinine Clearance 41 mL/min (70-130); Calcium 8.3 mg/dL (7.8-10.44); Carbon Dioxide 21 mmol/L (23-31); Chloride 107 mmol/L (98-107); Estimated GFR-MDRD 39; Glucose 89 mg/dL (80-115); Magnesium 2.5 mg/dL (1.6-2.6); Potassium 4.2 mmol/L (3.5-5.1); Sodium 139 mmol/L (136-145)
[2019-12-08] MEDS: Amiodarone 200 MG TAB PO SCH (09:04)
[2019-12-08] MEDS: Carvedilol 6.25 MG TAB PO SCH ×2 (09:04→17:37)
[2019-12-08] MEDS: Zonisamide 100 MG CAP PO SCH ×2 (09:04→21:33)
[2019-12-08] MEDS: Senokot S 8.6-50 MG TAB PO SCH (09:04)
[2019-12-08] MEDS: Sacubitril 49 MG/Valsartan 51 MG TABLET PO SCH ×2 (09:04→21:32)
[2019-12-08] MEDS: Aripiprazole 10 MG TAB PO SCH (09:04)
[2019-12-08] MEDS: Gabapentin 100 MG CAP PO SCH ×3 (09:04→21:33)
[2019-12-08] MEDS: Folic Acid 1 MG TAB PO SCH (09:05)
[2019-12-08] MEDS: Magnesium Oxide 400 MG TAB PO SCH ×2 (09:05→21:32)
[2019-12-08] MEDS: Polyethylene Glycol 3350 17 GM Packet PO SCH (09:06)
[2019-12-08] MEDS ORDERED: Warfarin Sodium 5 MG TAB PO SCH (10:00)
[2019-12-08] MEDS: Torsemide 10 MG TAB PO SCH ×2 (10:51→14:06)
[2019-12-08] MEDS: Enoxaparin Sodium 60 MG/0.6 ML SYRINGE SC SCH ×3 (10:54→21:45)
--- NOTE | 2019-12-08 10:57 | PRG ---
DATE OF SERVICE: 12/08/2019 SUBJECTIVE: Ms. Timmy Marrero had an excellent day. She is able to ambulate well over 600 feet. She says she feels really good. There are no symptoms. She wants go home. She said that she has a LifeVest in place. She has Entresto at home. She also has a walker at home. Her house is set up already. REVIEW OF SYSTEMS: GENERAL: There is no fever, chills, or productive cough. HEENT: There is no change in vision, hearing or swallowing. She has difficulty with hearing. She is chronically tone deaf. PULMONARY: She is breathing easy. CARDIAC: There is no complaint of chest pain, palpitations, syncope. GI: She is eating well. There is no nausea or diarrhea. : She is urinating well. MUSCULOSKELETAL: There is no complaints of muscle or joint pains. INTEGUMENT: There is no complaint of skin breakdown. NEUROLOGIC: There are no focal deficits or weaknesses. MEDICATIONS: Her active cardiac medications include 1. Amiodarone 200 mg daily. 2. Carvedilol 12.5 mg b.i.d. 3. She is on daptomycin 600 mg daily IV for her mitral valve endocarditis. 4. Enoxaparin 60 mg b.i.d. 5. Gabapentin 100 mg t.i.d. 6. Magnesium oxide 400 mg b.i.d. 7. Protonix 400 mg daily. 8. Entresto 49/51 combination, that is sacubitril and valsartan twice a day. 9. Torsemide 10 mg twice a day. 10. Warfarin at 10 mg daily. Her telemetry was reviewed. She is in sinus rhythm with frequent PVC. There is no concerning arrhythmia at this time around. PHYSICAL EXAMINATION: VITAL SIGNS: Heart rate 78, blood pressure 119/68. GENERAL: She is alert and conversational, relaxed. There is no acute distress. HEENT: EOMI. Oropharynx is benign with moist mucosa. NECK: JVP is about 9 cm with positive hepatojugular reflux. LUNGS: She has good air movement bilaterally and it is clear to auscultation bilaterally. CARDIAC: Mostly regular rate and rhythm. However, there is the occasional irregularity, there is 1/6 diastolic murmur at the right sternal border. There is a definite mechanical valve click. There is normal S1, S2, there is 2/6 holosystolic murmur at the apex with radiation to the left axilla. ABDOMEN: Soft, nontender. Positive bowel sounds. EXTREMITIES: Lower extremities are warm and well perfused without edema. LABORATORY DATA: Hemoglobin 9, platelet at 74. Her chemistry shows sodium 139, potassium 4.2, chloride 107, bicarb 21, BUN 25, creatinine 1.36, magnesium 2.5. INR is still only 1.5. Her 24 hour input and output is 1625 in and 2600 out. ASSESSMENT: A 64-year-old female is doing well. She is recovering well from her mitral valve endocarditis. She also has [place] Heart Association stage C, [place] Heart Association class III heart failure with reduced ejection fraction. It is most likely a nonischemic cardiomyopathy. She appears to be well compensated and euvolemic with current regimen. However, her INR is still only 1.5. She apparently needs much more anticoagulation. Please see the following for my recommendations. RECOMMENDATIONS: 1. Continue current heart failure regimen. 2. Give an extra dose of warfarin 5 mg now. I suspect the INR should go up after 2 days of 15 mg. 3. Please have someone fit her for LifeVest. 4. If the INR goes up to about 1.6 to 1.7 tomorrow, it may be safe to discharge as long as she has close followup with [facility]. It may be a very long time before her INR will actually reach the therapeutic range. 5. In the meantime, one can cover her with the enoxaparin as a bridge. It has been a pleasure taking care of Ms. Marrero. If any questions, please give me a call. The visitation time was 30 minutes today. This includes personally performing history and physical, reviewing data, reviewing telemetry, and also coordinating her care and direct patient interaction. Job ID: [id number] MTDD
[2019-12-08 11:40] VITALS: BMI 23.2
--- NOTE | 2019-12-08 12:15 | PDOC.HOSPP ---
- Subjective Encounter Date: 12/08/19 Encounter Time: 10:15 Subjective: no chest pain or palp feels good - Objective Vital Signs & Weight: Vital Signs (12 hours) Temp Pulse Resp BP Pulse Ox 12/08/19 11:04 97.9 F 68 18 106/57 L 100 12/08/19 07:23 98.9 F 78 18 119/68 99 12/08/19 04:00 98.2 F 79 15 118/74 93 L Weight Admit Weight 136 lb 3.2 oz Weight 135 lb 6.4 oz I&O: 12/07/19 12/08/19 12/09/19 06:59 06:59 06:59 Intake Total 940 1625 Output Total 550 2600 Balance 390 -975 Result Diagrams: 12/08/19 04:00 12/08/19 04:00 Hospitalist ROS - Medication Medications: Active Medications Generic Name Dose Route Start Last Admin Trade Name Freq PRN Reason Stop Dose Admin Acetaminophen 650 mg 11/25/19 20:01 11/27/19 08:47 Acetaminophen 325 Mg Tab PO 650 mg Q4H PRN Administration Headache/Fever/Mild Pain (1-3) Amiodarone HCl 200 mg 11/28/19 09:00 12/08/19 09:04 Amiodarone 200 Mg Tab PO 200 mg DAILY ROBERT Administration Aripiprazole 5 mg 11/26/19 09:00 12/08/19 09:04 Aripiprazole 10 Mg Tab PO 5 mg DAILY ROBERT Administration Carvedilol 12.5 mg 12/06/19 17:00 12/08/19 09:04 Carvedilol 6.25 Mg Tab PO 12.5 mg BID-WM RBOERT Administration Enoxaparin Sodium 60 mg 12/05/19 21:00 12/08/19 10:54 Enoxaparin Sodium 60 Mg/0.6 Ml Syringe SC Not Given 0900,2100 ROBERT Folic Acid 1 mg 11/26/19 09:00 12/08/19 09:05 Folic Acid 1 Mg Tab PO 1 mg DAILY ROBERT Administration Gabapentin 100 mg 11/26/19 09:00 12/08/19 09:04 Gabapentin 100 Mg Cap PO 100 mg TID ROBERT Administration Daptomycin 600 mg/ Sodium 100 mls @ 200 mls/hr 12/04/19 12:00 12/07/19 13:26 Chloride IVPB 100 mls 1200 ROBERT Administration Magnesium Oxide 400 mg 12/07/19 21:00 12/08/19 09:05 Magnesium Oxide 400 Mg Tab PO 400 mg BID ROBERT Administration Pantoprazole Sodium 40 mg 11/26/19 09:00 12/08/19 09:05 Pantoprazole 40 Mg Tab PO 40 mg DAILY ROBERT Administration Polyethylene Glycol 17 gm 11/26/19 09:00 12/08/19 09:06 Polyethylene Glycol 3350 17 Gm Packet PO Not Given DAILY ROBERT Sacubitril/Valsartan 1 tab 12/03/19 09:00 12/08/19 09:04 Sacubitril 49 Mg/Valsartan 51 Mg Tablet PO 1 tab BID ROBERT Administration Senna/Docusate Sodium 1 tab 11/30/19 09:00 12/08/19 09:04 Senokot S 8.6-50 Mg Tab PO 1 tab DAILY ROBERT Administration Sodium Chloride 10 ml 11/27/19 09:00 12/08/19 09:06 Flush - Normal Saline 10 Ml Syringe IVF 10 ml Q12HR ROBERT Administration Torsemide 10 mg 12/07/19 14:00 12/08/19 10:51 Torsemide 10 Mg Tab PO 10 mg 0900,1400 ROBERT Administration Warfarin Sodium 10 mg 12/07/19 17:00 12/07/19 17:16 Warfarin Sodium 10 Mg Tab PO 10 mg 1700 ROBERT Administration Zonisamide 100 mg 11/26/19 21:00 12/08/19 09:04 Zonisamide 100 Mg Cap PO 100 mg BID ROBERT Administration - Exam General Appearance: awake alert Eye: PERRL, anicteric sclera ENT: no oropharyngeal lesions, moist mucosa Neck: supple, no JVD Heart: RRR, murmur present Respiratory: no wheezes, no rales Gastrointestinal: soft, non-tender, non-distended, normal bowel sounds Extremities: no cyanosis, no edema Neurological: cranial nerve grossly intact, no focal deficits Hosp A/P (1) Endocarditis Code(s): I38 - ENDOCARDITIS, VALVE UNSPECIFIED Status: Acute Qualifiers: Endocarditis type: infective (2) Bacteremia Code(s): R78.81 - BACTEREMIA Status: Acute (3) Chronic systolic heart failure Code(s): I50.22 - CHRONIC SYSTOLIC (CONGESTIVE) HEART FAILURE Status: Chronic (4) H/O mechanical aortic valve replacement Code(s): Z95.2 - PRESENCE OF PROSTHETIC HEART VALVE Status: Chronic (5) Acute metabolic encephalopathy Code(s): G93.41 - METABOLIC ENCEPHALOPATHY Status: Resolved (6) Cocaine use Code(s): F14.90 - COCAINE USE, UNSPECIFIED, UNCOMPLICATED Status: Chronic (7) Sepsis Code(s): A41.9 - SEPSIS, UNSPECIFIED ORGANISM Status: Resolved - Plan is on daptomycin, torsamide, coreg, entresto, lovenox to bridge with coumadin 15 mg, amiodarone continue abilify, zonisamide and neurontin I have dc'd thiamine and B12 to see if her inr comes up has life vest arranged inr is 1.5 awaiting inr to be therapeutic before dc hemostable has 1.5 cm post mitral valve vegetation with mod to severe mitral regurg
[2019-12-08] MEDS: DAPTOmycin 600 MG in Sodium Chloride 0.9% 100 ML IVPB SCH (12:59)
[2019-12-08] MEDS: Warfarin Sodium 10 MG TAB PO SCH (17:38)
[2019-12-09 04:25] LABS: #Eosinphils 0.2 thou/uL (0.0-0.7); #Lymphocytes 1.2 thou/uL (1.20-3.40); #Monocytes 0.2 thou/uL (0.11-0.59); #Neutrophils 1.4 thou/uL (1.40-6.50); %Basophils 0.8 % (0.0-1.0); %Eosinophils 6.7 % (0.0-10.0); %Lymphocytes 39.1 % (21.0-51.0); %Monocytes 6.1 % (0.0-10.0); %Neutrophils 47.3 % (42.0-75.0); Hemoglobin 9.4 g/dL (12.0-16.0); Mean Corpuscular HGB CONC 32.1 g/dL (32.0-36.0); Mean Corpuscular Hemoglobin 27.1 pg (27.0-31.0); Mean Corpuscular Volume 84.3 fL (78.0-98.0); Mean Platelet Volume 10.5 fL (7.4-10.4); Platelet Count 88 thou/uL (130-400); Prothrombin Time 23.1 sec (12.0-14.7); RBC Distribution Width 16.8 % (11.5-14.5); Red Blood Cell (RBC) Count 3.46 mill/uL (4.20-5.40)
[2019-12-09 04:38] LABS: Anion Gap 14 mmol/L (10-20); BUN (Urea Nitrogen) 23 mg/dL (9.8-20.1); Calc. Creatinine Clearance 43 mL/min (70-130); Calcium 8.7 mg/dL (7.8-10.44); Carbon Dioxide 22 mmol/L (23-31); Chloride 106 mmol/L (98-107); Estimated GFR-MDRD 41; Glucose 87 mg/dL (80-115); Magnesium 2.1 mg/dL (1.6-2.6); Potassium 4.4 mmol/L (3.5-5.1); Sodium 138 mmol/L (136-145)
[2019-12-09] MEDS: Carvedilol 6.25 MG TAB PO SCH ×2 (09:03→16:04)
[2019-12-09] MEDS: Aripiprazole 10 MG TAB PO SCH (09:03)
[2019-12-09] MEDS: Amiodarone 200 MG TAB PO SCH (09:03)
[2019-12-09] MEDS: Torsemide 10 MG TAB PO SCH ×2 (09:04→11:57)
[2019-12-09] MEDS: Senokot S 8.6-50 MG TAB PO SCH (09:04)
[2019-12-09] MEDS: Gabapentin 100 MG CAP PO SCH ×3 (09:04→21:07)
[2019-12-09] MEDS: Magnesium Oxide 400 MG TAB PO SCH ×2 (09:04→21:07)
[2019-12-09] MEDS: Enoxaparin Sodium 60 MG/0.6 ML SYRINGE SC SCH ×2 (09:04→09:08)
[2019-12-09] MEDS: Folic Acid 1 MG TAB PO SCH (09:04)
[2019-12-09] MEDS: Sacubitril 49 MG/Valsartan 51 MG TABLET PO SCH ×2 (09:04→21:07)
[2019-12-09] MEDS: Zonisamide 100 MG CAP PO SCH ×2 (09:04→21:07)
[2019-12-09] MEDS: Polyethylene Glycol 3350 17 GM Packet PO SCH (09:05)
[2019-12-09] MEDS: DAPTOmycin 600 MG in Sodium Chloride 0.9% 100 ML IVPB SCH (11:57)
--- NOTE | 2019-12-09 12:36 | PDOC.HOSPP ---
- Subjective Encounter Date: 12/09/19 Encounter Time: 09:45 Subjective: no sob or palpitations feels better is getting lifevest teaching at bedside - Objective Vital Signs & Weight: Vital Signs (12 hours) Temp Pulse Resp BP Pulse Ox 12/09/19 12:00 98.0 F 76 24 H 132/66 99 12/09/19 07:06 98.6 F 66 17 117/72 97 12/09/19 03:48 98.6 F 77 20 103/67 97 Weight Admit Weight 136 lb 3.2 oz Weight 135 lb 6.4 oz I&O: 12/08/19 12/09/19 12/10/19 06:59 06:59 06:59 Intake Total 1625 1568 Output Total 5012 0950 Balance -154 -0178 Result Diagrams: 12/09/19 03:49 12/09/19 03:49 Hospitalist ROS - Medication Medications: Active Medications Generic Name Dose Route Start Last Admin Trade Name Freq PRN Reason Stop Dose Admin Acetaminophen 650 mg 11/25/19 20:01 11/27/19 08:47 Acetaminophen 325 Mg Tab PO 650 mg Q4H PRN Administration Headache/Fever/Mild Pain (1-3) Amiodarone HCl 200 mg 11/28/19 09:00 12/09/19 09:03 Amiodarone 200 Mg Tab PO 200 mg DAILY ROBERT Administration Aripiprazole 5 mg 11/26/19 09:00 12/09/19 09:03 Aripiprazole 10 Mg Tab PO 5 mg DAILY ROBERT Administration Carvedilol 12.5 mg 12/06/19 17:00 12/09/19 09:03 Carvedilol 6.25 Mg Tab PO 12.5 mg BID- ROBERT Administration Folic Acid 1 mg 11/26/19 09:00 12/09/19 09:04 Folic Acid 1 Mg Tab PO 1 mg DAILY ROBERT Administration Gabapentin 100 mg 11/26/19 09:00 12/09/19 09:04 Gabapentin 100 Mg Cap PO 100 mg TID ROBERT Administration Daptomycin 600 mg/ Sodium 100 mls @ 200 mls/hr 12/04/19 12:00 12/09/19 11:57 Chloride IVPB 100 mls 1200 ROBERT Administration Magnesium Oxide 400 mg 12/07/19 21:00 12/09/19 09:04 Magnesium Oxide 400 Mg Tab PO 400 mg BID ROBERT Administration Pantoprazole Sodium 40 mg 11/26/19 09:00 12/09/19 09:04 Pantoprazole 40 Mg Tab PO 40 mg DAILY ROBERT Administration Polyethylene Glycol 17 gm 11/26/19 09:00 12/09/19 09:05 Polyethylene Glycol 3350 17 Gm Packet PO Not Given DAILY ROBERT Sacubitril/Valsartan 1 tab 12/03/19 09:00 12/09/19 09:04 Sacubitril 49 Mg/Valsartan 51 Mg Tablet PO 1 tab BID ROBERT Administration Senna/Docusate Sodium 1 tab 11/30/19 09:00 12/09/19 09:04 Senokot S 8.6-50 Mg Tab PO 1 tab DAILY ROBERT Administration Sodium Chloride 10 ml 11/27/19 09:00 12/09/19 09:14 Flush - Normal Saline 10 Ml Syringe IVF 10 ml Q12HR ROBERT Administration Torsemide 10 mg 12/07/19 14:00 12/09/19 11:57 Torsemide 10 Mg Tab PO 10 mg 0900,1400 ROBERT Administration Warfarin Sodium 10 mg 12/07/19 17:00 12/08/19 17:38 Warfarin Sodium 10 Mg Tab PO 10 mg 1700 ROBERT Administration Zonisamide 100 mg 11/26/19 21:00 12/09/19 09:04 Zonisamide 100 Mg Cap PO 100 mg BID ROBERT Administration - Exam General Appearance: awake alert Eye: PERRL, anicteric sclera ENT: no oropharyngeal lesions, moist mucosa Neck: supple, no JVD Heart: RRR, murmur present Respiratory: no wheezes, no rales Gastrointestinal: soft, non-tender, non-distended, normal bowel sounds Extremities: no cyanosis, no edema Neurological: cranial nerve grossly intact, no focal deficits Psychiatric: A&O x 3 Hosp A/P (1) Endocarditis Code(s): I38 - ENDOCARDITIS, VALVE UNSPECIFIED Status: Acute Qualifiers: Endocarditis type: infective (2) Bacteremia Code(s): R78.81 - BACTEREMIA Status: Acute (3) Chronic systolic heart failure Code(s): I50.22 - CHRONIC SYSTOLIC (CONGESTIVE) HEART FAILURE Status: Chronic (4) H/O mechanical aortic valve replacement Code(s): Z95.2 - PRESENCE OF PROSTHETIC HEART VALVE Status: Chronic (5) Acute metabolic encephalopathy Code(s): G93.41 - METABOLIC ENCEPHALOPATHY Status: Resolved (6) Cocaine use Code(s): F14.90 - COCAINE USE, UNSPECIFIED, UNCOMPLICATED Status: Chronic (7) Sepsis Code(s): A41.9 - SEPSIS, UNSPECIFIED ORGANISM Status: Resolved - Plan is on daptomycin, torsamide, coreg, entresto, coumadin 10 mg, amiodarone continue abilify, zonisamide and neurontin I have dc'd thiamine and B12 has life vest arranged inr is 2.0 likely dc in am once inr holds up on current dose of coumadin hemostable has 1.5 cm post mitral valve vegetation with mod to severe mitral regurg She needs f/u at [facility], likely dc coumadin dose will be 10mg or 7.5mg
[2019-12-09] MEDS: Warfarin Sodium 10 MG TAB PO SCH (16:04)
--- NOTE | 2019-12-09 17:13 | PRG ---
DATE OF SERVICE: 12/09/2019 SUBJECTIVE: Mrs. Marrero had an excellent day. She was able to walk around the halls twice. She was able to do that for least 600 feet. She did not feel tired or short of breath afterwards. She had a good night sleep. She did not have any heart failure symptoms, orthopnea, PND or peripheral edema. She said that she has been out of her house for over 40 days now. She really wants to go home badly. She believes she has received her discharge medicines at home. . She was able to fit herself with a LifeVest. She is wearing a LifeVest now. REVIEW OF SYSTEMS: GENERAL: There is no fever, chills, or productive cough. HEENT: There is no change in vision, hearing, or swallowing. PULMONARY: She is breathing easy. CARDIAC: There are no chest pain, palpitations, or syncope. GI: There is no nausea, vomiting, or diarrhea. : She is able to urinate well on her own. MUSCULOSKELETAL: There is no joint or muscle pains. INTEGUMENT: There are no skin breakdowns. NEUROLOGIC: There are no new focal deficits or weaknesses. CURRENT MEDICATIONS: Her current medications that have cardiac effect include 1. Amiodarone 200 mg daily. 2. Abilify at 5 mg daily. 3. Carvedilol at 12.5 mg twice a day. 4. Daptomycin at 600 mg IV daily. 5. Folic acid 1 mg daily. 6. Gabapentin at 100 mg t.i.d. 7. Magnesium oxide 400 mg b.i.d. 8. Pantoprazole which is Protonix 40 mg daily. 9. MiraLAX 17 g daily. 10. Entresto 49/51 combination, that is sacubitril and valsartan at one tablet twice a day. 11. Senokot-S 1 tab daily. 12. Torsemide 10 mg twice a day. 13. Warfarin currently scheduled at 10 mg at bedtime. 14. Zonisamide 100 mg b.i.d. Telemetry was reviewed. She is in sinus rhythm, but she does have frequent PVCs. There are no concerning arrhythmia today. PHYSICAL EXAMINATION: VITAL SIGNS: Heart rate 76, blood pressure 132/66. Her input and output are 1568 in and 3300 out. GENERAL: She is alert, conversational, energetic, no acute distress and relaxed. HEENT: EOMI. Oropharynx is benign with moist mucosa. NECK: JVP is about 9 cm. Negative hepatojugular reflux. PULMONARY: She has good air movement bilaterally. It is clear to auscultation bilaterally. CARDIAC: Regular rate and rhythm with normal S1, S2. However, there is mechanical valve click. There is soft 1/6 diastolic murmur at the right sternal border. There is 2/6 holosystolic murmur at the apex with radiation to the left axilla. ABDOMEN: soft, non-tender, positive bowel sounds LOWER EXTREMETIES: warm, well perfused, no edema, + dorsalis pedis pulses LABORATORY DATA: White cell count 3, hemoglobin 9.4, platelets 88. Her chemistry shows sodium 138, potassium 4.4, chloride 106, bicarb 22, BUN of 23, and creatinine 1.3. Her INR is 2 today. ASSESSMENT: 64-year-old female is recovering nicely from her endocarditis of the mitral valve. She is receiving daptomycin to treat this. She resides in [place] Heart Association stage C and [place] Heart Association class III heart failure with reduced ejection fraction. She has combined systolic and diastolic dysfunctions. Currently, she is well compensated and euvolemic. Thus, the combination of carvedilol and Entresto is working well. The current dosage of torsemide 10 mg twice a day seems to be working well for her too. So, there is no change in this needed. However, whether she will improve or not remains to be seen. If her heart deteriorates, then she will need advanced heart failure therapy. Her INR is therapeutic level today, so she can be discharged. However, I understand that holding her for one more day could be good to establish a baseline of what her outpatient Coumadin regimen should be. Please see the following for my recommendations. RECOMMENDATIONS: 1. Continue with the current cardiac regimen. 2. Agree with keeping her for another day to make sure that we know what her dosage of warfarin should be. 3. Ensure that she has her carvedilol and Entresto. 4. Ensure that she has good outpatient followup in clinical appointment with [facility]. 5. Ensure that she has LifeVest. 6. Please provide a prescription for her cardiac medications and also her warfarin. It has been a pleasure taking care of Mrs. Marrero. If any questions, please give me a call. The total time for this visit is 30 minutes. This includes personally performing history and physical, reviewing data, coordinating care and direct patient interaction. Job ID: [id number] MTDD
[2019-12-10 06:22] LABS: INR-International Normal Ratio 2.6; Prothrombin Time 27.8 sec (12.0-14.7)
[2019-12-10 06:39] LABS: #Eosinphils 0.1 thou/uL (0.0-0.7); #Lymphocytes 0.9 thou/uL (1.20-3.40); #Monocytes 0.2 thou/uL (0.11-0.59); #Neutrophils 1.5 thou/uL (1.40-6.50); %Basophils 1.5 % (0.0-1.0); %Eosinophils 5.3 % (0.0-10.0); %Lymphocytes 31.4 % (21.0-51.0); %Monocytes 7.6 % (0.0-10.0); %Neutrophils 54.2 % (42.0-75.0); Hemoglobin 9.2 g/dL (12.0-16.0); Mean Corpuscular HGB CONC 31.2 g/dL (32.0-36.0); Mean Corpuscular Hemoglobin 26.6 pg (27.0-31.0); Mean Corpuscular Volume 85.3 fL (78.0-98.0); Mean Platelet Volume 10.1 fL (7.4-10.4); Platelet Count 91 thou/uL (130-400); RBC Distribution Width 16.6 % (11.5-14.5); Red Blood Cell (RBC) Count 3.43 mill/uL (4.20-5.40); White Blood Cell (WBC) Count 2.7 thou/uL (4.8-10.8)
[2019-12-10 07:43] VITALS: TEMP 97.8
[2019-12-10 09:05] LABS: Anion Gap 12 mmol/L (10-20); BUN (Urea Nitrogen) 25 mg/dL (9.8-20.1); Calc. Creatinine Clearance 37 mL/min (70-130); Calcium 8.7 mg/dL (7.8-10.44); Carbon Dioxide 26 mmol/L (23-31); Chloride 105 mmol/L (98-107); Estimated GFR-MDRD 35; Glucose 92 mg/dL (80-115); Magnesium 2.1 mg/dL (1.6-2.6); Potassium 4.4 mmol/L (3.5-5.1); Sodium 139 mmol/L (136-145)
[2019-12-10] MEDS: Carvedilol 6.25 MG TAB PO SCH (09:08)
[2019-12-10] MEDS: Magnesium Oxide 400 MG TAB PO SCH (09:08)
[2019-12-10] MEDS: Senokot S 8.6-50 MG TAB PO SCH (09:08)
[2019-12-10] MEDS: Aripiprazole 10 MG TAB PO SCH (09:09)
[2019-12-10] MEDS: Amiodarone 200 MG TAB PO SCH (09:09)
[2019-12-10] MEDS: Sacubitril 49 MG/Valsartan 51 MG TABLET PO SCH (09:09)
[2019-12-10] MEDS: Gabapentin 100 MG CAP PO SCH (09:09)
[2019-12-10] MEDS: Folic Acid 1 MG TAB PO SCH (09:09)
[2019-12-10] MEDS: Polyethylene Glycol 3350 17 GM Packet PO SCH (09:11)
[2019-12-10] MEDS: Torsemide 10 MG TAB PO SCH (09:48)
[2019-12-10] MEDS: Zonisamide 100 MG CAP PO SCH (09:48)
[2019-12-10] MEDS: DAPTOmycin 600 MG in Sodium Chloride 0.9% 100 ML IVPB SCH (12:00)
[2019-12-10 12:03] VITALS: BP 97/61
--- NOTE | 2019-12-10 14:15 | PRG ---
DATE OF SERVICE: 12/10/2019 SUBJECTIVE: Ms. Marrero had an excellent day. She was able to take 2 walks. Each walk was at least 600 feet. She was able to walk around the entire unit. She feels good afterwards. She says she feels good overall. She believes she is back at her baseline. She plans to walk every day at home. REVIEW OF SYSTEMS: CONSTITUTIONAL: There is no fever, chills, productive cough. HEENT: There is no change in vision, hearing, or swallowing. However, she has difficulty hearing. PULMONARY: There is no shortness of breath. CARDIAC: There is no palpitation, chest pain, or syncope. GASTROINTESTINAL: She is eating well. There is no nausea, vomiting, or diarrhea. GENITOURINARY: She is able to urinate on her own. MUSCULOSKELETAL: There are no new complaints of muscle or joint pains. INTEGUMENT: There are no new complaints of skin breakdown. NEUROLOGIC: There are no new focal deficits or weaknesses. MEDICATIONS: Medications that have cardiac effect include: 1. Amiodarone 200 mg daily. 2. Abilify 5 mg daily. 3. Carvedilol 12.5 b.i.d. 4. Daptomycin 600 mg daily for her endocarditis. 5. Magnesium oxide 400 mg b.i.d. 6. Protonix 40 mg daily. 7. MiraLax 17 g daily. 8. Sacubitril/Valsartan 49/51 combination, which is Entresto, 1 tablet every 12 hours. 9. Senokot S 1 tablet daily. 10. Torsemide 10 mg twice a day. 11. Warfarin 10 mg each night. 12. Zonisamide 100 mg twice a day. IMAGING DATA: Her telemetry was reviewed. It shows that she is in sinus rhythm, however, she has frequent PVCs. There are no concerning arrhythmias. PHYSICAL EXAMINATION: VITAL SIGNS: Heart rate 81, blood pressure 106/66. GENERAL: She is alert and conversational, relaxed, sitting well in bed. HEENT: Show EOMI. Oropharynx is benign with moist mucosa. NECK: JVP is only 9 cm without hepatojugular reflux. LUNGS: Clear to auscultation bilaterally. HEART: Regular rate and rhythm with normal S1/S2. There is a soft 1/6 diastolic murmur at the right sternal border. There is a 2/6 holosystolic murmur near the apex with radiation to the left axilla. ABDOMEN: Soft, nontender. Positive bowel sounds. EXTREMITIES: Her lower extremities are without edema. There are palpable dorsalis pulses. LABORATORY VALUES: White cell count 3.7, hemoglobin at 9.2, and platelet count at 91, so her platelet count has been increasing. Her chemistry: Sodium 139, potassium 4.4, chloride 105, bicarb 26, BUN of 25, creatinine 1.49, calcium 8.7, and magnesium 2.1. Her INR is 2.6 today. ASSESSMENT: 64-year-old lady is recovering well from mitral valve endocarditis. She is receiving daptomycin for that. She has chronic heart failure with reduced ejection fraction. She has combined systolic and diastolic dysfunctions. She is euvolemic and well compensated, so there is not an active issue. However, she will need to continue carvedilol and Entresto indefinitely. These should be able to reverse her heart failure. There is a chance that it may not happen. If her heart deteriorates again, then she will require advanced heart failure therapy. Her INR is in therapeutic range, so that she can go home. Please see the following for my recommendation. RECOMMENDATIONS: 1. Continue current cardiac regimen of amiodarone 200 mg daily, carvedilol 12.5 mg b.i.d., Entresto 49/51 combination 1 tablet twice a day. 2. Her torsemide should be 10 mg twice a day on Saturday, Saturday, and Saturday; and then once a day on all the other days. 3. Agree warfarin 10 mg at bedtime as a good starting dose for her to be going out. Loading doses of 15 mg daily has given her INR between 2 to 2.6 range to arrive at maintenance dose of 10 mg daily. This may need to be titrated down as an outpatient with a goal INR between 2 and 3. It has been a pleasure taking care of Ms. Marrero. If there are any questions, please give me a call. The total time for this visit is 30 minutes. This includes personally performing history and physical, reviewing data, coordinating care, and direct patient interaction. Job ID: [id number] [facility]
--- NOTE | 2019-12-10 15:31 | DIS ---
DATE OF ADMISSION: 11/25/2019 DATE OF DISCHARGE: 12/10/2019 DISCHARGE DISPOSITION: Home. PRIMARY DISCHARGE DIAGNOSES: Mitral valve endocarditis; bacteremia; chronic congestive heart failure with systolic dysfunction; history of mechanical aortic valve; metabolic encephalopathy secondary to endocarditis, resolved; cocaine abuse; sepsis on arrival, resolved. PROCEDURES DONE DURING HOSPITALIZATION: Blood cultures obtained on 11/11/2019 grew Staph aureus resistant to amoxicillin, Zithromax, clarithromycin, erythromycin, and Zosyn, but sensitive to all other antibiotics. She had 2/2 cultures growing the same organism. Discharge white count of 2.7, H and H of 9 and 29, platelet count is 91, MCV is 85. Discharge PT/INR is 27.8 and 2.6. Discharge BUN and creatinine are 25 and 1.4. Urine drug screen on 11/11/2019 was positive for cocaine metabolites. Urine drug screen on 12/01/2019 was positive for methamphetamines and opiates. COVID-19 PCR was not detected on 11/11/2019. DISCHARGE MEDICATIONS: 1. Daptomycin 600 mg IV daily for a total of 32 days. 2. Amiodarone 200 mg p.o. daily. 3. Abilify 5 mg p.o. daily. 4. Coreg 12.5 mg p.o. twice daily. 5. Coumadin 10 mg p.o. daily. 6. Demadex 10 mg twice daily. 7. Entresto 49/51 mg one tablet twice daily. 8. Florastor 250 mg p.o. q.h.s. 9. Gabapentin 100 mg p.o. 3 times daily. 10. Protonix 40 mg p.o. daily. 11. Zonisamide 100 mg p.o. twice daily. ALLERGIES: TO CEPHALOSPORINS, PENICILLIN, CODEINE, STATINS, AND SULFA. INPATIENT CONSULT: 1. Dr. Joaquín Ochoa for heart failure. 2. Dr. Bazan for Pulmonology. 3. Dr. Dhillon for Infectious Disease. DISCHARGE PLAN: The patient to follow up with Coumadin clinic on Saturday for PT/INR to be drawn at 11:45 a.m. She needs to see her primary care physician, Mariah Iniguez, nurse practitioner in 1 week; Dr. Dhillon in 3 to 4 weeks; Dr. Boogie in 3 to 4 weeks; Dr. Joaquín Ochoa in 3 to 4 weeks. BRIEF COURSE DURING HOSPITALIZATION: The patient initially was admitted on 11/11/2019 for altered mental state. Her urine drug screen was positive and had a fever of 105. The patient was septic and was admitted to ICU. Blood cultures grew MSSA bacteremia. An echo done on 11/12/2019 showed EF of 10% to 15%. There was mechanical aortic valve with periprosthetic leaks. There were also [id number] mitral regurgitation, [id number] tricuspid regurgitation. No obvious vegetation was seen on the transthoracic echo. She was fluid resuscitated and stabilized here. Later in view of 2/2 blood cultures growing MSSA bacteremia and with the patient having a mechanical aortic valve with urine drug screen being positive, there was high suspicion for possible endocarditis. She was transferred to [facility] in [place] for higher level of care and workup. The patient was sent back to us on the 24 of November. There was also initial suspicion for possible cardiogenic shock when she was transferred to [facility], but later this turned out to be septic shock with bacteremia and suspected endocarditis. She was transferred back from [facility] for continuation of IV antibiotics in view of the patient's history of drug abuse. On 11/30/2019, the patient had transesophageal echo done, which showed 1.5 cm mass attached to posterior mitral valve leaflet suggestive of vegetation. There was also moderate to severe mitral regurgitation seen. Ms. Marrero was evaluated by Dr. Dhillon for Infectious Disease and Dr. Joaquín Ochoa for heart failure. Her medications have been optimized. She was counseled with regard to medication compliance and to be completely abstinent from street drugs. We have had difficulty bringing her INR up, and the patient was on escalating doses of Coumadin. At the time of discharge, she has been on 10 mg of Coumadin with INR of 2.6. She will need a repeat INR check on Saturday, which has been set up at Coumadin clinic in [place] where she goes. All her medications have been faxed to her pharmacy. She needs to continue daptomycin for another 32 days 600 mg IV daily. She is otherwise hemodynamically stable, ambulating, and eating well. She has been cleared for discharge by all specialists. Please note, I have seen and examined the patient on the day of discharge. Job ID: [id number] [facility]
== END 2019-12-10 14:18 | disposition home or self-care (01) | DRG 871 ==
LOC: 2NO 12:52
PROVIDERS: ADMIT Internal Medicine; ATTEND Internal Medicine
PROC: B24BZZ4 Ultrasonography of Heart with Aorta, Transesophageal (ICD-10-PCS; principal; 2019-11-30)
PROC: 30233N1 Transfusion of Nonautologous Red Blood Cells into Peripheral Vein, Percutaneous Approach (ICD-10-PCS; 2019-12-01)
DX: A41.01 Sepsis due to Methicillin susceptible Staphylococcus aureus (principal); I33.0 Acute and subacute infective endocarditis; G93.41 Metabolic encephalopathy; R65.21 Severe sepsis with septic shock; I50.22 Chronic systolic (congestive) heart failure; I13.0 Hypertensive heart and chronic kidney disease with heart failure and stage 1 through stage 4 chronic kidney disease, or unspecified chronic kidney disease; D61.818 Other pancytopenia; I42.8 Other cardiomyopathies; I47.2 Ventricular tachycardia; R51.9 Headache, unspecified; F14.10 Cocaine abuse, uncomplicated; I08.0 Rheumatic disorders of both mitral and aortic valves; E87.8 Other disorders of electrolyte and fluid balance, not elsewhere classified; N18.30 Chronic kidney disease, stage 3 unspecified; D64.9 Anemia, unspecified; Z95.2 Presence of prosthetic heart valve; Z79.01 Long term (current) use of anticoagulants; Z90.710 Acquired absence of both cervix and uterus; Z88.0 Allergy status to penicillin; Z88.1 Allergy status to other antibiotic agents; Z88.5 Allergy status to narcotic agent; Z91.041 Radiographic dye allergy status; Z71.51 Drug abuse counseling and surveillance of drug abuser
CPT/HCPCS: 36415; 36430; 70450; 76770; 80048; 80076; 80306; 83605; 83735; 83880; 84100; 85014; 85018; 85025; 85046; 85049; 85610; 85730; 86850; 86900; 86901; 93312; 93976; J0690; J0878; J1644; J1650; J2704; J3475; J3490; P9016

== ENCOUNTER 2020-01-18 07:16 | Inpatient (IN) | payer OTHER ==
[2020-01-18] MEDS ORDERED: Acetaminophen 500 MG TAB ONE (08:08)
[2020-01-18 08:42] LABS: #Lymphocytes 0.3 thou/uL (1.20-3.40); #Monocytes 0.6 thou/uL (0.11-0.59); #Neutrophils 9.1 thou/uL (1.40-6.50); %Eosinophils 0.1 % (0.0-10.0); %Lymphocytes 2.9 % (21.0-51.0); Hemoglobin 9.8 g/dL (12.0-16.0); Mean Corpuscular Volume 84.9 fL (78.0-98.0); Mean Platelet Volume 9.5 fL (7.4-10.4); Platelet Count 116 thou/uL (130-400); RBC Distribution Width 16.5 % (11.5-14.5); Red Blood Cell (RBC) Count 3.51 mill/uL (4.20-5.40)
[2020-01-18] MEDS ORDERED: Piperacillin/Tazobactam 4.5 GM VIAL ONE (08:48)
[2020-01-18 08:58] LABS: ALT (SGPT) 18 U/L (8-55); AST (SGOT) 33 U/L (5-34); Albumin 3.8 g/dL (3.4-4.8); Alkaline Phosphatase 133 U/L (40-110); Anion Gap 13 mmol/L (10-20); BUN (Urea Nitrogen) 32 mg/dL (9.8-20.1); Calc. Creatinine Clearance 0 mL/min (70-130); Calcium 8.9 mg/dL (7.8-10.44); Carbon Dioxide 24 mmol/L (23-31); Chloride 109 mmol/L (98-107); Estimated GFR-MDRD 26; Globulin 3.4 g/dL (2.4-3.5); Glucose 136 mg/dL (80-115); Protein, Total 7.2 g/dL (6.0-8.3); Sodium 142 mmol/L (136-145)
--- NOTE | 2020-01-18 09:01 | RAD ---
CHEST 1 VIEW: Date: 01/18/2020 HISTORY: Patient feels sick, patient wears a LifeVest. COMPARISON: 11/12/2019. FINDINGS: Overlying LifeVest obscures the chest. Patient refused to remote it. Cardiomegaly with bilateral vascular congestion and probable small pleural effusions. IMPRESSION: Overall stable cardiomegaly and bilateral congestion, minimal edema, and pleural effusions. No signif icant new process. POS: RRE
[2020-01-18 09:18] LABS: CKMB 0.6 ng/mL (0-6.6)
[2020-01-18] MEDS ORDERED: Vancomycin 1 GM/200 ML BAG ONE (09:20)
[2020-01-18 09:23] LABS: Bilirubin Negative (Negative); Blood, Urine Negative (Negative); Clarity Clear (Clear); Glucose, Urine (Dipstick) Normal (Negative); Ketone, Urine Negative (Negative); Leukocyte 75 Leu/uL (Negative); Nitrite Negative (Negative); Protein, Urine (Dipstick) 70 mg/dL (Neg-Trace); Specific Gravity, Urine 1.016 (1.002-1.036); Squamous Epithelial None Seen HPF (0-3); Urobilinogen 3 mg/dL (Less than 2)
[2020-01-18 09:36] LABS: Bacteria/HPF Rare-Few HPF (None Seen)
--- NOTE | 2020-01-18 10:41 | CT ---
CT Brain WO Con History: Altered mental status Comparison: Brain CT November 27, 2019 Findings: Moderate bifrontal subcortical microangiopathic changes. No acute hemorrhage or infarct. No midline shift or mass effect. Small focus of gas along the right temporal musculature likely venous contamination. Same is true of the left cavernous sinus. Left inferior cerebellar encephalomalacia. Impression: Chronic findings. No acute intracranial abnormality.
[2020-01-18] MEDS ORDERED: Carvedilol 6.25 MG TAB PO SCH (12:00)
[2020-01-18] MEDS ORDERED: Amiodarone 200 MG TAB PO SCH (12:00)
[2020-01-18] MEDS ORDERED: Torsemide 10 MG TAB PO SCH (12:00)
[2020-01-18 12:06] LABS: CKMB 0.8 ng/mL (0-6.6)
--- NOTE | 2020-01-18 12:14 | PDOC.HHP ---
Hospitalist HPI - History of Present Illness Fever History of Present Illness: Patient is a 64-year-old female who presented to the emergency department. Patient has a complicated history of prior drug use which apparently included cocaine, methamphetamine and opiates. She has a substantial cardiomyopathy with an ejection fraction around 10 to 15%. She was admitted to this facility in November and had blood cultures positive for MSSA. She was found to have endocarditis with a 1.5 cm vegetation on her mitral valve. At 1 point she was transferred to [facility] in [place] and subsequently transferred back to this facility. She was discharged to have outpatient IV daptomycin with Dr. Dhillon for an additional 32 days. Patient reports that she had completed that course and was doing well until she had a recurrence of fevers and chills last night. Apparently she had some encephalopathy as well. She was noted to have a temperature of 103 in the emergency department. Currently she says she feels fine and simply requests that she not have to be in the hospital over Thanksgiving. She denies any other specific infection related symptoms. ED Course: Patient had blood cultures obtained. She was given vancomycin and Zosyn. She also received fluids at 30 ml/kg and Tylenol. Hospitalist ROS - Review of Systems Constitutional: reports: fever, chills, malaise Respiratory: denies: cough, shortness of breath Cardiovascular: denies: chest pain All other systems reviewed; all pertinent +/- noted in HPI/Subj - Medication Medications: zonisamide SatJan 18, 2020 11:20 KEYANA Morales Lacee capsule : Strength - 100 mg : ORAL Patient Dose: 200 mg Oral 2 times a day (before meals). carvedilol SatJan 18, 2020 11:20 KEYANA Morales Lacee tablet : Strength - 12.5 mg : ORAL Patient Dose: 12.5 mg Oral 2 times a day (before meals). warfarin SatJan 18, 2020 11:20 KEYANA Morales Lacee tablet : Strength - 7.5 mg : ORAL Patient Dose: 7.5 mg Oral once a day (in the morning). pantoprazole oral SatJan 18, 2020 11:20 KEYANA Morales Lacee tablet,delayed release (DR/EC) : Strength - 20 mg : ORAL Patient Dose: 20 mg Oral once a day (in the morning). furosemide oral SatJan 18, 2020 11:20 Morales, RN, Wendy tablet : Strength - 40 mg : ORAL Patient Dose: 40 mg Oral 2 times a day (before meals). Pacerone SatJan 18, 2020 11:21 Morales, RN, Wendy tablet : Strength - 200 mg : ORAL Patient Dose: 1 tab(s) Oral once a day.FOR 30 DAYS. ARIPiprazole SatJan 18, 2020 11:24 Morales, RN, Wendy tablet : Strength - 5 mg : ORAL Patient Dose: 1 tab(s) Oral once a day (at bedtime). Entresto SatJan 18, 2020 11:25 Morales, RN, Wendy tablet : Strength - 49 mg-51 mg : ORAL Patient Dose: 1 tab(s) Oral once a day. gabapentin SatJan 18, 2020 11:26 Morales, RN, Wendy capsule : Strength - 100 mg : ORAL Patient Dose: 1 tab(s) Oral 3 times a day. torsemide oral SatJan 18, 2020 11:27 Morales, RN, Wendy tablet : Strength - 10 mg : ORAL Patient Dose: 1 tab(s) Oral once a day. Hospitalist History - Past Medical History Other Medical History: prosthetic aortic valve on chronic anticoagulation, coronary artery disease, chronic epilepsy, hypertension - Past Surgical History Other Surgical History: Aortic valve replacement x2, pacemaker placement and subsequent removal, hysterectomy. - Family History Family History: reports: no pertinent history - Social History Smoking Status: Never smoker Alcohol: reports: None Drugs: reports: cocaine - Exam General Appearance: NAD, awake alert Eye: PERRL, anicteric sclera Neck: supple, symmetric, no JVD, no thyromegaly, no lymphadenopathy, no carotid bruit Heart: RRR, no murmur, no gallops, no rubs, normal peripheral pulses Respiratory: CTAB, no wheezes, no rales, no ronchi, normal chest expansion, no tachypnea, normal percussion Gastrointestinal: soft, non-tender, non-distended, normal bowel sounds, no palpable masses, no hepatomegaly, no splenomegaly, no bruit Extremities: no cyanosis, no clubbing, no edema Skin: normal turgor, no lesions, no rashes Neurological: cranial nerve grossly intact, normal sensation to touch, no weakness, no focal deficits, no new deficit Musculoskeletal: normal tone, normal strength, no muscle wasting Psychiatric: normal affect, normal behavior, oriented to person, oriented to place Psychiatric - other findings: Overall mental status is slightly off. Hospitalist Results - Labs Result Diagrams: 01/18/20 07:56 01/18/20 07:56 Lab results: WBC 10.0 thou/uL (4.8-10.8) 01/18/20 07:56 Hgb 9.8 g/dL (12.0-16.0) L 01/18/20 07:56 Hct 29.8 % (36.0-47.0) L 01/18/20 07:56 MCV 84.9 fL (78.0-98.0) 01/18/20 07:56 Plt Count 116 thou/uL (130-400) L 01/18/20 07:56 Neutrophils % 91.0 % (42.0-75.0) H 01/18/20 07:56 Sodium 142 mmol/L (136-145) 01/18/20 07:56 Potassium 4.0 mmol/L (3.5-5.1) 01/18/20 07:56 Chloride 109 mmol/L (98-107) H 01/18/20 07:56 Carbon Dioxide 24 mmol/L (23-31) 01/18/20 07:56 BUN 32 mg/dL (9.8-20.1) H 01/18/20 07:56 Creatinine 1.92 mg/dL (0.6-1.1) H 01/18/20 07:56 Glucose 136 mg/dL (80-115) H 01/18/20 07:56 Lactic Acid 1.2 mmol/L (0.5-2.2) 01/18/20 07:56 Calcium 8.9 mg/dL (7.8-10.44) 01/18/20 07:56 Total Bilirubin 1.0 mg/dL (0.2-1.2) 01/18/20 07:56 AST 33 U/L (5-34) 01/18/20 07:56 ALT 18 U/L (8-55) 01/18/20 07:56 Alkaline Phosphatase 133 U/L (40-110) H 01/18/20 07:56 CK-MB (CK-2) 0.8 ng/mL (0-6.6) 01/18/20 11:11 Troponin I 0.082 ng/mL (< 0.028) H 01/18/20 11:11 Serum Total Protein 7.2 g/dL (6.0-8.3) 01/18/20 07:56 Albumin 3.8 g/dL (3.4-4.8) 01/18/20 07:56 Urine Ketones Negative mg/dL (Negative) 01/18/20 08:42 Urine Blood Negative (Negative) 01/18/20 08:42 Urine Nitrite Negative (Negative) 01/18/20 08:42 Ur Leukocyte Esterase 75 Sharonda/uL (Negative) A 01/18/20 08:42 Urine RBC 4-6 HPF (0-3) A 01/18/20 08:42 Urine WBC 11-20 HPF (0-3) A 01/18/20 08:42 Ur Squamous Epith Cells None Seen HPF (0-3) 01/18/20 08:42 Urine Bacteria Rare-Few HPF (None Seen) 01/18/20 08:42 - Radiology Interpretation Chest x-ray Status: report reviewed by me Additional Comment: Overall stable cardiomegaly and bilateral congestion, minimal edema, and pleural effusions. No significant new process. Hospitalist H&P A/P - Problem (1) Fever Code(s): R50.9 - FEVER, UNSPECIFIED Status: Acute (2) History of endocarditis Code(s): Z86.79 - PERSONAL HISTORY OF OTHER DISEASES OF THE CIRCULATORY SYSTEM Status: Acute (3) Chronic anticoagulation Code(s): Z79.01 - USP (CURRENT) USE OF ANTICOAGULANTS Status: Chronic (4) Chronic systolic heart failure Code(s): I50.22 - CHRONIC SYSTOLIC (CONGESTIVE) HEART FAILURE Status: Chronic (5) H/O mechanical aortic valve replacement Code(s): Z95.2 - PRESENCE OF PROSTHETIC HEART VALVE Status: Chronic (6) Acute metabolic encephalopathy Code(s): G93.41 - METABOLIC ENCEPHALOPATHY Status: Resolved (7) Cardiomyopathy Code(s): I42.9 - CARDIOMYOPATHY, UNSPECIFIED Status: Acute (8) Elevated troponin Code(s): R77.8 - OTHER SPECIFIED ABNORMALITIES OF PLASMA PROTEINS Status: Acute (9) CKD (chronic kidney disease), stage IV Code(s): N18.4 - CHRONIC KIDNEY DISEASE, STAGE 4 (SEVERE) Status: Acute - Plan Plan: Patient is a 64-year-old female who presented to the emergency department with fever and metabolic encephalopathy. Patient has a history of MSSA bacteremia related to a 1.5 cm vegetation on her mitral valve. Patient had undergone a full course of outpatient IV daptomycin which finished a few weeks ago. Febrile illness: Strongly suspect the patient's endocarditis was not fully eradicated with the course of treatments although it does sound like it was appropriate and she completed it. Blood cultures have been redrawn. We will continue with vancomycin to cover the MSSA for now. Discussed with ID. History of endocarditis: As above. Severe cardiomyopathy: Likely related to prior drug use. 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 We will continue with her Entresto and carvedilol and torsemide. She is wearing a LifeVest however that has been disconnected presently as the patient does not appear to have the wherewithal to manage it while she is a bit encephalopathic. We will keep her on the heart monitor. CKD stage IV: Stable. History of seizure disorder: Stable. History of prosthetic aortic valve: Patient was previously on warfarin. We will recheck her coagulation levels now. Elevated troponin: Appears to be chronic.
[2020-01-18] MEDS ORDERED: Vancomycin HCl 1 GM in Sodium Chloride 0.9% 250 ML 250 ML IVPB SCH (12:30)
[2020-01-18 12:50] LABS: INR-International Normal Ratio 2.4; PTT 62.1 sec (22.9-36.1); Prothrombin Time 26.6 sec (12.0-14.7)
[2020-01-18] MEDS: Vancomycin 1 GM in Premix Bag 1 BAG IVPB SCH (14:07)
[2020-01-18] MEDS ORDERED: Heparin 1,000 UNITS/ML VIAL ONE (14:13)
[2020-01-18] MEDS: Sodium Chloride 0.9% 1,000 ML IV SCH ×2 (14:35→22:09)
[2020-01-18 14:49] LABS: Medtox Reader # READER 4
[2020-01-18 14:51] LABS: Amphetamine Not Detected (NotDetected); Barbiturates Screen Not Detected (NotDetected); Benzodiazepine Screen Not Detected (NotDetected); Cocaine Metabolite Screen Not Detected (NotDetected); Medtox Control Line Valid? VALID (VALID); Methadone Not Detected (NotDetected); Methamphetamine Not Detected (NotDetected); Opiate Screen Not Detected (NotDetected); Oxycodone Screen Not Detected (NotDetected); Phencyclidine (PCP) Not Detected (NotDetected); THC/Cannabinoid Screen Not Detected (NotDetected); Tricyclic Screen Not Detected (NotDetected)
[2020-01-18] MEDS ORDERED: Acetaminophen 325 MG TAB ONE (15:08)
[2020-01-18] MEDS: Carvedilol 6.25 MG TAB PO SCH (20:29)
[2020-01-18] MEDS ORDERED: Sacubitril 49 MG/Valsartan 51 MG TABLET PO SCH (21:00)
[2020-01-18] MEDS: Famotidine 20 MG TAB PO SCH (21:59)
[2020-01-18] MEDS: Aripiprazole 10 MG TAB PO SCH (21:59)
[2020-01-18] MEDS: Acetaminophen 325 MG TAB PO PRN (22:00)
[2020-01-19] MEDS: Acetaminophen 325 MG TAB PO PRN ×3 (04:21→20:18)
[2020-01-19 05:02] LABS: #Lymphocytes 0.9 thou/uL (1.20-3.40); #Monocytes 0.4 thou/uL (0.11-0.59); #Neutrophils 3.8 thou/uL (1.40-6.50); %Basophils 0.5 % (0.0-1.0); %Eosinophils 0.2 % (0.0-10.0); %Lymphocytes 17.2 % (21.0-51.0); %Neutrophils 74.1 % (42.0-75.0); Hemoglobin 8.9 g/dL (12.0-16.0); Mean Corpuscular HGB CONC 30.6 g/dL (32.0-36.0); Mean Corpuscular Hemoglobin 26.7 pg (27.0-31.0); Mean Corpuscular Volume 87.2 fL (78.0-98.0); Mean Platelet Volume 10.5 fL (7.4-10.4); Platelet Count 66 thou/uL (130-400); RBC Distribution Width 16.8 % (11.5-14.5); Red Blood Cell (RBC) Count 3.33 mill/uL (4.20-5.40); White Blood Cell (WBC) Count 5.2 thou/uL (4.8-10.8)
[2020-01-19 07:08] LABS: ALT (SGPT) 26 U/L (8-55); AST (SGOT) 37 U/L (5-34); Albumin 3.2 g/dL (3.4-4.8); Alkaline Phosphatase 99 U/L (40-110); Anion Gap 17 mmol/L (10-20); BUN (Urea Nitrogen) 46 mg/dL (9.8-20.1); Bilirubin, Total 1.1 mg/dL (0.2-1.2); Calc. Creatinine Clearance 24 mL/min (70-130); Calcium 8.4 mg/dL (7.8-10.44); Carbon Dioxide 16 mmol/L (23-31); Chloride 110 mmol/L (98-107); Estimated GFR-MDRD 19; Globulin 2.8 g/dL (2.4-3.5); Glucose 112 mg/dL (80-115); Potassium 4.1 mmol/L (3.5-5.1); Sodium 139 mmol/L (136-145)
[2020-01-19 08:41] LABS: SARS-CoV-2 MS2 Positive; SARS-CoV-2 N Gene Negative; SARS-CoV-2 S Gene Negative; SARS-CoV-2 by NAA Not Detected (NotDetected); SARS-CoV-2 orf1ab Negative
[2020-01-19] MEDS ORDERED: Enoxaparin Sodium 40 MG/0.4 ML SYRINGE SC SCH (09:00)
[2020-01-19] MEDS ORDERED: Torsemide 10 MG TAB PO SCH (09:00)
[2020-01-19] MEDS: Carvedilol 6.25 MG TAB PO SCH ×2 (09:50→16:24)
[2020-01-19] MEDS: Amiodarone 200 MG TAB PO SCH (09:51)
[2020-01-19] MEDS: Gabapentin 100 MG CAP PO SCH ×3 (09:51→20:19)
[2020-01-19] MEDS: Aripiprazole 10 MG TAB PO SCH ×2 (09:51→20:20)
[2020-01-19] MEDS: Famotidine 20 MG TAB PO SCH (09:52)
[2020-01-19] MEDS: Zonisamide 100 MG CAP PO SCH ×2 (11:01→21:29)
--- NOTE | 2020-01-19 12:05 | CON ---
DATE OF CONSULTATION: HISTORY OF PRESENT ILLNESS: The patient is a 64-year-old woman who presented with altered mental status and fever. The patient has a history of a cardiomyopathy. She was seen initially in November of this year and was seen to have a marked decreased left ventricular ejection fraction of 10% to 15%. She has a history of a prosthetic aortic valve. She was transferred to [facility]. She has remained in that hospital for several weeks. The patient was transferred back and underwent a EMMA. This revealed evidence of endocarditis. The patient has undergone treatment and has been treated with IV antibiotics. She completed a course. She presented to the hospital confused with fevers and chills. PAST MEDICAL HISTORY: 1. Cardiomyopathy. 2. History of aortic valve replacement. 3. Seizure disorder. PAST SURGICAL HISTORY: Hysterectomy. SOCIAL HISTORY: Nonsmoker. ALLERGIES: CEPHALOSPORIN, CODEINE, AND PENICILLIN. MEDICATIONS: 1. Lasix 40 b.i.d. 2. Amiodarone 200 daily. 3. Coumadin 7.5 nightly. 4. Entresto 49/51 b.i.d. 5. Coreg 12.5 b.i.d. 6. Demadex 10 daily. PHYSICAL EXAMINATION: GENERAL: This is an ill-appearing woman who is confused. VITAL SIGNS: Blood pressure 130/75. NECK: No jugular venous distention. LUNGS: Coarse breath sounds bilateral. HEART: Regular rate and rhythm with a positive click and a 2/6 systolic murmur. ABDOMEN: Nondistended. EXTREMITIES: No edema. LABORATORY RESULTS: Sodium was 139, potassium 4.1, chloride 110, bicarb 16, BUN 46, and creatinine 2.6. White blood cell count 5.2, hemoglobin 8.9, hematocrit 29.0, and platelets are 66. INR was 2.4. IMPRESSION: 1. Endocarditis. 2. Congestive heart failure. 3. Renal insufficiency. 4. Pancytopenia. 5. Seizure disorder. SUMMARY: This patient presents with recurrent evidence of endocarditis. From a cardiac standpoint, she may need to undergo another EMMA. Would consider transferring her back to [place] for possible high-risk surgery if this should be necessary. We will follow this patient with you through her hospitalization. [facility] [id number] [facility]
[2020-01-19 13:16] LABS: Vancomycin, Trough 8.8 ug/mL
[2020-01-19] MEDS: Vancomycin 1 GM in Premix Bag 1 BAG IVPB SCH (13:32)
[2020-01-19] MEDS: Sodium Chloride 0.9% 1,000 ML IV SCH (13:33)
--- NOTE | 2020-01-19 14:29 | CON ---
DATE OF CONSULTATION: 01/19/2020 REASON FOR CONSULTATION: Recrudescence of bacteremia following recent treatment for endocarditis. HISTORY OF PRESENT ILLNESS: A 64-year-old whom I had evaluated recently on 11/26 when she presented with a history of congenital aortic valve disorder, which led to aortic valve replacement in childhood and then another replacement 3 years later, who initially presented to [facility] on 11/10 because of altered mental state and fever of acute onset. This was associated with diffuse myalgias. On arrival, she was tachycardic and tachypneic with moderate hypoxemia. She had nonsustained ventricular tachycardia and was given amiodarone infusion and Coreg. Her echocardiogram showed an EF of 10% to 15%. At that time, her blood culture was positive and she was transferred to [facility] in [place]. There, she was managed as sepsis, associated depressed cardiac function. She stayed there for about 2 weeks and then was treated with antimicrobial therapy and then transferred back to [facility] to complete treatment. Reportedly, a EMMA did not show any vegetations then, so the recommendation was to continue cefazolin until 12/10. A PICC line was inserted and then there was an issue with unwillingness to provide the treatment in the home setting because of the positive cocaine screen in the urine. She did have some back pain at the time. We felt that after evaluation that endocarditis was very likely. A repeat EMMA did actually show a 1.5 cm mass in the mitral valve, but not in the prosthetic valve. The EMMA also showed severe mitral regurgitation. So we decided to switch her to IV daptomycin and the dose was 10 mg/kg adjusted for renal function. A COVID-19 PCR was not detected on the beginning of November. She had a repeat urine drug screen on 11/30, which was positive for methamphetamines and opiates and she was discharged on IV daptomycin 600 mg daily for a total of 32 days. After completion of the daptomycin course, she remained well until recurrence of fevers on the day before readmission on 01/16, so she was brought back and a little bit encephalopathic and had a temperature of 103 in the emergency room. She did not have a headache. The back pain had resolved and did not have any respiratory symptoms or abdominal pain. No genitourinary symptoms. No other joint symptoms. MEDICAL HISTORY: 1. Congenital aortic valve abnormality, which required a prosthetic valve replacement in childhood and redo replacement a few years later. 2. She has had a pacemaker placed. 3. Hysterectomy. 4. 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 5. Epilepsy. 6. Hypertension. FAMILY HISTORY: Not pertinent. SOCIAL HISTORY: Never smoker. She has had quite a few positive drug test for cocaine, methamphetamines, and opioids both here as well as in [facility]. CURRENT MEDICATION LIST: Includes: 1. Abilify. 2. Coreg. 3. Pepcid. 4. Neurontin. 5. Entresto. 6. Vancomycin. 7. Warfarin. PHYSICAL EXAMINATION: VITAL SIGNS: T-max 103 and she is now 100.8, blood pressure 130/75, pulse 75, respirations 17, and O2 saturation 97. SKIN: Slight area of skin maceration and pressure damage in the presacral region. She has a peripheral IV access. No Hernandez catheter. No lymphadenopathy. HEENT: Ocular movements conjugate. Pupils are equal. Oral cavity with numerous missing teeth. NECK: Supple. No jugular vein distention. LUNGS: Faint basilar crackles particularly on the left side. HEART: Diminished heart sounds. S1 and S2 without obvious murmurs. I could not hear the prosthetic valve very well. ABDOMEN: Slightly distended, but not tender. No ascites. No bladder distention. EXTREMITIES: No other joint inflammatory process. No back tenderness. She is able to move all extremities. No edema. Pulses 1+ in dorsalis pedis. Plantar responses are flexor. LABORATORY DATA: Sodium 139 and creatinine initially 1.92 and now 2.6. AST 33, ALT 18, alkaline phosphatase 133, and albumin 3.2. Troponin 0.058. Urinalysis with 11-20 wbc's. Toxic screen negative. COVID was not detected. Brain CT, chronic findings, no acute changes. Chest x-ray, cardiomegaly, vascular congestion, small pleural effusions. The last echo report showed an EF of 15%. The EMMA report, which was done by Dr. Boogie on the last admission with the mitral valve vegetation. There was severe decrease in left ventricular systolic function still. ASSESSMENT: 1. Congenital aortic valve disorder, which led to initial aortic valve replacement in childhood and she had a redo surgery a few years later. 2. Severe decrease in ejection fraction, left ventricular, which has persisted. 3. Methicillin-sensitive Staphylococcus aureus bacteremia with evidence of mitral valve endocarditis and [id number] mitral valve regurgitation. 4. Failed treatment of the infection with daptomycin with recurrence of bacteremia. DISCUSSION: The patient's treatment will have to be reviewed to see if she actually received the full course of daptomycin for the diagnosis and a repeat EMMA might be considered to see if there has been progression. She is a very high risk for surgical intervention and probably the best course of action would be to restart antimicrobial therapy and re-treat her depending on the findings on EMMA. The EMMA might show evidence of prosthetic valve involvement or perivalvular complications that would increase the likelihood of medical treatment failure in the 2nd trial. Job ID: [id number]
--- NOTE | 2020-01-19 16:40 | PDOC.HOSPP ---
- Subjective Encounter Date: 01/19/20 Encounter Time: 11:30 Subjective: pt up in bed appears ill - Objective Vital Signs & Weight: Vital Signs (12 hours) Temp Pulse Resp BP BP Pulse Ox 01/19/20 16:24 134/81 01/19/20 12:55 100.8 F H 72 16 119/75 97 01/19/20 11:00 100.8 F H 01/19/20 09:50 155/94 H 01/19/20 07:25 99.6 F 75 17 130/75 97 01/19/20 05:58 99.3 F 01/19/20 04:51 99.3 F Weight Admit Weight 149 lb 9.6 oz Weight 149 lb 9.6 oz I&O: 01/18/20 01/19/20 01/20/20 06:59 06:59 06:59 Intake Total 1300 Balance 1300 Result Diagrams: 01/19/20 04:21 01/19/20 06:31 Hospitalist ROS - Review of Systems Constitutional: reports: weakness, malaise Cardiovascular: denies: chest pain, palpitations, orthopnea, paroxysmal noc. dyspnea, edema, light headedness, other Gastrointestinal: denies: nausea, vomiting, abdominal pain, diarrhea, constipation, melena, hematochezia, other Genitourinary: denies: dysuria, frequency, incontinence, hematuria, retention, other - Medication Medications: Active Medications Generic Name Dose Route Start Last Admin Trade Name Freq PRN Reason Stop Dose Admin Acetaminophen 650 mg 01/18/20 11:44 01/19/20 11:00 Acetaminophen 325 Mg Tab PO 650 mg Q4H PRN Administration Headache/Fever/Mild Pain (1-3) Amiodarone HCl 200 mg 01/19/20 09:00 01/19/20 09:51 Amiodarone 200 Mg Tab PO 200 mg DAILY ROBERT Administration Aripiprazole 5 mg 01/18/20 21:00 01/18/20 21:59 Aripiprazole 10 Mg Tab PO 5 mg HS ROBERT Administration Aripiprazole 5 mg 01/19/20 09:00 01/19/20 09:51 Aripiprazole 10 Mg Tab PO 5 mg DAILY ROBERT Administration Carvedilol 12.5 mg 01/18/20 17:00 01/19/20 16:24 Carvedilol 6.25 Mg Tab PO 12.5 mg BID-WM ROBERT Administration Gabapentin 100 mg 01/19/20 09:00 01/19/20 16:27 Gabapentin 100 Mg Cap PO 100 mg TID ROBERT Administration Sodium Chloride 1,000 mls @ 75 mls/hr 01/18/20 11:45 01/19/20 13:33 Normal Saline 0.9% IV 1,000 mls .[id number] ROBERT Administration Sacubitril/Valsartan 1 tab 01/18/20 21:00 01/18/20 22:00 Sacubitril 49 Mg/Valsartan 51 Mg Tablet PO 1 tab BID ROBETR Administration Sodium Chloride 10 ml 01/18/20 21:00 01/19/20 09:52 Flush - Normal Saline 10 Ml Syringe IVF 10 ml Q12HR ROBERT Administration Zonisamide 200 mg 01/19/20 09:00 01/19/20 11:01 Zonisamide 100 Mg Cap PO 200 mg BID ROBERT Administration - Exam Neck: negative: supple, symmetric, no JVD, no thyromegaly, no lymphadenopathy, no carotid bruit, JVD Heart: negative: RRR, no murmur, no gallops, no rubs, normal peripheral pulses, irregular, diminshed peripheral pulses, murmur present, II/IV, III/IV Respiratory: negative: CTAB, no wheezes, no rales, no ronchi, normal chest expansion, no tachypnea, normal percussion, rales, rhonchi, tachypneic, wheezes Gastrointestinal: negative: soft, non-tender, non-distended, normal bowel soun ds, no palpable masses, no hepatomegaly, no splenomegaly, no bruit, no guarding, no rigidity, tender to palpation, distended, diminished bowl sounds, voluntary guarding Extremities: 1+ LE edema Hosp A/P (1) Fever Code(s): R50.9 - FEVER, UNSPECIFIED Status: Acute (2) Bacteremia Code(s): R78.81 - BACTEREMIA Status: Acute (3) Endocarditis Code(s): I38 - ENDOCARDITIS, VALVE UNSPECIFIED Status: Acute Qualifiers: Endocarditis type: infective (4) Metabolic acidosis Code(s): E87.2 - ACIDOSIS Status: Acute (5) CKD (chronic kidney disease) stage 3, GFR 30-59 ml/min Code(s): N18.3 - CHRONIC KIDNEY DISEASE, STAGE 3 (MODERATE) * DO NOT USE * Status: Chronic (6) Chronic anticoagulation Code(s): Z79.01 - HALFWAY (CURRENT) USE OF ANTICOAGULANTS Status: Chronic (7) Cocaine use Code(s): F14.90 - COCAINE USE, UNSPECIFIED, UNCOMPLICATED Status: Chronic (8) H/O mechanical aortic valve replacement Code(s): Z95.2 - PRESENCE OF PROSTHETIC HEART VALVE Status: Chronic (9) Acute metabolic encephalopathy Code(s): G93.41 - METABOLIC ENCEPHALOPATHY Status: Resolved (10) Sepsis Code(s): A41.9 - SEPSIS, UNSPECIFIED ORGANISM Status: Resolved - Plan pt's blood cx are positive for staph will continue abx. cardiology consulted. will hold entresto. Patient has a 1.5 cm vegetation in her mitral valve. She finished round of antibiotics. She continues to have high fevers. Cardiology and infectious disease has been consulted. Patient is on Coumadin we will continue current management.
[2020-01-19 16:43] LABS: Actual Bicarbonate (HCO3a) 17.4 mEq/L (22-28); Base Excess (BEa) -6.2 mEq/L (-2.0 to +3.0); CO2 Tension 27.7 mmHg (35.0-45.0); Calcium, Ionized (arterial) 1.17 mmol/L (1.12-1.30); Carboxyhemoglobin (COHb) 0.7 gm% (0.0-3.0); Hemoglobin (Hb) 9.2 g/dL (12.0-16.0); O2 Tension (PaO2), arterial 72.2 mmHg (> 80.0); pH, Arterial 7.42 (7.35-7.45)
[2020-01-19 16:46] LABS: Puncture Site LBA
[2020-01-19] MEDS ORDERED: Furosemide 100 MG/10 ML VIAL SLOW IVP SCH (19:00)
[2020-01-19 19:06] LABS: Anion Gap 15 mmol/L (10-20); BUN (Urea Nitrogen) 52 mg/dL (9.8-20.1); Calc. Creatinine Clearance 23 mL/min (70-130); Calcium 8.4 mg/dL (7.8-10.44); Carbon Dioxide 17 mmol/L (23-31); Chloride 111 mmol/L (98-107); Estimated GFR-MDRD 18; Glucose 111 mg/dL (80-115); Potassium 4.3 mmol/L (3.5-5.1); Sodium 139 mmol/L (136-145)
[2020-01-19] MEDS: DOBUTamine 500 mg/250 ml 500 MG in Premix Bag 1 BAG IVPB SCH (19:59)
--- NOTE | 2020-01-19 20:21 | CON ---
DATE OF CONSULTATION: 01/19/2020 SERVICE: Advanced Heart Failure Cardiology Consulting Service. REASON FOR CONSULTATION: Management of recurrent mitral valve endocarditis and heart failure. HISTORY OF PRESENT ILLNESS: Mrs. Timmy Marrero, 64-year-old lady with known mitral valve endocarditis and low ejection fraction about 15% to 20%, presented with fever and acute change in mental status. Mrs. Marrero had a quite complex cardiac history. She had aortic valve replacement in 1992. Due to thrombosis, aortic valve replacement had to be redone in 1994. Earlier this year, she presented with fever and septic shock. It was believed that she had endocarditis. With combination of endocarditis and low ejection fraction, she was sent to [facility]. She was sent back to [place]. She was treated extensively with antibiotics. Transesophageal echocardiogram was done on November 30, 2019, showed there was 1.5 cm vegetation on the posterior leaflet of the mitral valve. She received extended daptomycin treatment. A PICC line was placed. Her took her to be treated everyday for 30 days. It was daptomycin. Her antibiotic was stopped on March 14, 2019, and PICC was taken out. At that time, she was doing quite well. Her said that she could walk as far as she wants and she did not show any signs of heart failure such as severe shortness of breath with exertion, orthopnea, PND, or edema. Then on Saturday on January 16, she developed severe chills. Then, she did not feel good at all. Then, she developed epigastric abdominal pain on Saturday, January 17 at about 3 a.m. She also became confused. She could not remember the days and she did not remember the recent event. Combination of acute change in mental status and abdominal epigastric pain caused her to take her to [place] ER. Blood culture x2 was done. It grew out methicillin-sensitive Staph aureus twice. She was hypotensive at that time. IV fluids were started. Antibiotic of daptomycin was also started. Since then, she remained afebrile and confused. She only knows where she is and roughly the day. She does not remember the events. PAST MEDICAL HISTORY: 1. Mitral valve endocarditis, which is diagnosed by transesophageal echocardiogram, the last time was on November 30, 2019, there was 1.5 cm vegetation on the posterior leaflet of the mitral valve. 2. Aortic valve replacement twice, first time in 1992, second time in 1994. It is mechanical valve. 3. Heart failure with reduced ejection fraction, at one time the EF was about 15%. 4. Seizure disorder. 5. Asthma. SOCIAL HISTORY: 1. She denied ever smoking. 2. She has occasional alcohol use, but she has not used it any at all. 3. She denies any illicit drug use. However, she did have one positive test with cocaine in the past. Her more recent drug screen is always negative including this admission. 4. She lives with her who is retired. They live in [place], [place]. FAMILY HISTORY: 1. Her father at age 70 of unknown causes. 2. Her mother at age 70 with cancer. REVIEW OF SYSTEMS: Done, but may not be accurate, because she is confused. GENERAL: She is fatigued, having bouts of fever and chills, but no productive cough. HEENT: There is no change in vision, hearing, or swallowing. However, she is chronic hard of hearing. PULMONARY: Although she says she is breathing well, however, is visibly short of breath, breathing about 26 times a minute. CARDIAC: She is not complaining of chest pain, palpitations, or syncope, but this may not be reliable. GI: Please see HPI, but currently she is not nauseated and she does not have diarrhea. : She is still able to urinate on her own. MUSCULOSKELETAL: She is not complaining of muscle or joint pains at this point. INTEGUMENT: There are no new skin breakdown. NEUROLOGIC: She is not complaining of any new focal deficits or weaknesses. CURRENT MEDICATIONS: Include; 1. Amiodarone 200 mg daily. 2. Abilify 5 mg each night. 3. Carvedilol 12.5 mg twice a day. It is unsure, this was given or not. 4. Pepcid 20 mg daily. 5. Neurontin 100 mg t.i.d. 6. Normal saline running at 75 mL/h. This has been ongoing for day and a half. 7. Vancomycin 750 mg. 8. Warfarin 7.5 mg daily. 9. Zonisamide 200 mg b.i.d. PHYSICAL EXAMINATION: The telemetry was reviewed. She is in sinus rhythm. However, there are frequent PVCs, there is first degree AV block, there is also wide QRS and bundle-branch block like pattern. VITAL SIGNS: Her current vitals are heart rate 87, blood pressure 123/60. Her oxygen saturations is between 94% to 95% on room air. Respiration rate around is 26. GENERAL: She is confused, tachypneic and has significant work of breathing. HEENT: Show EOMI. Oropharynx with moist mucosa. She has bad dentition, especially on lower teeth. NECK: Her JVP is elevated about 14 cm. PULMONARY: She has significant crackles on the right mid to right base, less so on the left. CARDIAC: Regular rate and rhythm with normal S1 and S2. There is 2/6 holosystolic murmur at the apex with radiation to the left axilla. There is also 2/6 holosystolic murmur at the left sternal border, so she has murmurs of mitral regurgitation and tricuspid regurgitation. ABDOMEN: Soft, nontender. Positive bowel sounds. EXTREMITIES: Her lower extremities are cool to touch, but there is no edema. DIAGNOSTIC STUDIES: Her ECG was reviewed. It shows sinus rhythm, prolonged [place] interval of first degree AV block and bundle branch block pattern with prolonged QRS. Thus, she has conduction block. However, there is no previous ECG available, so I cannot tell this conduction block is new or old. Her chest x-ray was also examined. It showed cardiomegaly, mild pulmonary edema. Procedure: A bedside transthoracic echocardiogram was done and reviewed. Some chapman points are. 1. There is a significant mass on the posterior leaflet of the mitral valve. There is a potential abscess, you can see at in three views of apical four chamber, apical three chamber, and also short-axis. There was significant turbulent flow around the posterior leaflet of mitral valve, this strongly suggests the location of endocarditis. 2. Her left atrium is very dilated with very a high left atrial index about 102. 3. Her left ventricular ejection fraction is visually estimated at 25%. 4. She appeared to have normal right ventricle size and function, but severe tricuspid regurgitation with estimated pressure gradient close to 50 mmHg. 5. Her inferior vena cava is dilated and does not collapse with inspiration, suggesting volume overload. Microbiology lab came back, it showed that she has positive blood culture for methicillin-sensitive Staph aureus x2. Her coronavirus test also came back, she is negative for COVID-19. LABORATORY VALUES: White cell count 5.3, hemoglobin 8.9, platelets at 66. Her chemistry showed sodium 139, potassium 4.1, chloride 110, low bicarb at 16, BUN of 46, and creatinine of 2.6. She also has mildly elevated troponin at 0.087. ASSESSMENT: 64-year-old lady has recurrent mitral valve endocarditis. This endocarditis is triggering acute on chronic heart failure with reduced ejection fraction with combined systolic and diastolic dysfunctions. The resultant low cardiac output likely to have caused acute kidney injury. She is currently also having mild respiratory distress due to volume overload. She had 2 aortic valve replacements; therefore, making another thoracotomy be difficult. It is not likely that she can recover from mitral valve surgery, given her LVEF was 15% two months ago, and today, at best, it is still 25%. Thus the only possible long-term solution for her could be an urgent evaluation for potential heart transplant. Due to her continued bacteremia, any device therapy will be difficult, most likely not possible. So at this point, we need to improve her hemodynamics, treat her infection aggressively, and transfer to [facility], who has verbally agreed to evaluate her. The accepting doctor is Dr. Duglas Fuentes. RECOMMENDATIONS: 1. Stop the IV fluids now. 2. Please do ABG to find out if she is acidotic. If she is, then we need to supplement her with bicarb or she may even need to be ventilated. 3. Start dobutamine 2.5 mcg/kg per minute, may titrate up as needed to keep mean arterial pressure above 70. 4. Discontinue Entresto. 5. After dobutamine has been running for 30 minutes, please give Lasix 80 mg IV one dose. 6. Please check her electrolytes at 6 hours after the IV Lasix is given. 7. Please facilitate a transfer to [facility] now. The reason why is that she is showing signs of conduction block on her EKG. This suggests that bacterial endocarditis may be affecting her conduction pathway. She is at risk of going to complete heart block. 8. Please facilitate a transfer from [facility] to [facility]. This plan has been communicated to her , who agrees with going forward with this plan. Otherwise, her chance of survival is very low. It has been a pleasure taking care of Ms. Marrero. If you have any questions, please give me a call. The visitation time is 80 minutes. This includes personally performing history and physical, calling family member to get an accurate history, coordinating care with multiple members of health care team, personally reading echocardiogram at bedside, reading chest x-ray, and coordinating care with Conrad Brock. Job ID: [id number] [facility]
[2020-01-19] MEDS ORDERED: FLU VACC QS2020-21(6MOS UP)/PF 60 MCG/0.5 ML SYRINGE IM ONE (21:00)
[2020-01-20] MEDS ORDERED: Vancomycin HCl 750 MG in Sodium Chloride 0.9% 250 ML 250 ML IVPB SCH (02:00)
[2020-01-20 03:56] LABS: #Lymphocytes 0.9 thou/uL (1.20-3.40); #Monocytes 0.3 thou/uL (0.11-0.59); #Neutrophils 4.2 thou/uL (1.40-6.50); %Basophils 0.5 % (0.0-1.0); %Eosinophils 0.4 % (0.0-10.0); %Lymphocytes 15.8 % (21.0-51.0); %Monocytes 5.2 % (0.0-10.0); %Neutrophils 78.1 % (42.0-75.0); Hemoglobin 8.9 g/dL (12.0-16.0); Mean Corpuscular HGB CONC 31.3 g/dL (32.0-36.0); Mean Corpuscular Hemoglobin 26.6 pg (27.0-31.0); Mean Corpuscular Volume 84.9 fL (78.0-98.0); Mean Platelet Volume 10.8 fL (7.4-10.4); Platelet Count 95 thou/uL (130-400); RBC Distribution Width 16.6 % (11.5-14.5); Red Blood Cell (RBC) Count 3.35 mill/uL (4.20-5.40); White Blood Cell (WBC) Count 5.4 thou/uL (4.8-10.8)
[2020-01-20 04:10] LABS: Anion Gap 16 mmol/L (10-20); BUN (Urea Nitrogen) 53 mg/dL (9.8-20.1); Calc. Creatinine Clearance 24 mL/min (70-130); Calcium 8.6 mg/dL (7.8-10.44); Carbon Dioxide 16 mmol/L (23-31); Chloride 111 mmol/L (98-107); Estimated GFR-MDRD 19; Glucose 93 mg/dL (80-115); Potassium 4.3 mmol/L (3.5-5.1); Sodium 139 mmol/L (136-145)
[2020-01-20 04:15] LABS: INR-International Normal Ratio 3.3; Prothrombin Time 34.1 sec (12.0-14.7)
[2020-01-20] MEDS ORDERED: Warfarin Sodium 7.5 MG TAB PO SCH ×2 (07:30→10:30)
[2020-01-20] MEDS ORDERED: Furosemide 100 MG/10 ML VIAL SLOW IVP SCH (08:15)
[2020-01-20] MEDS ORDERED: Magnesium 2 GM/50 ML 2 GM in Premix Bag 1 BAG IVPB SCH (08:15)
[2020-01-20] MEDS: CEFAZOLIN 2 GM in Premix Bag 1 BAG IVPB SCH ×2 (08:35→20:19)
[2020-01-20] MEDS: Carvedilol 6.25 MG TAB PO SCH ×2 (08:36→16:34)
[2020-01-20] MEDS: Zonisamide 100 MG CAP PO SCH ×2 (08:37→20:19)
[2020-01-20] MEDS: Gabapentin 100 MG CAP PO SCH ×3 (08:37→20:16)
[2020-01-20] MEDS: Amiodarone 200 MG TAB PO SCH (08:37)
[2020-01-20] MEDS: Aripiprazole 10 MG TAB PO SCH ×2 (08:37→20:15)
[2020-01-20] MEDS: Famotidine 20 MG TAB PO SCH (08:38)
--- NOTE | 2020-01-20 08:54 | PRG ---
DATE OF SERVICE: 01/20/2020 SUBJECTIVE: Ms. Marrero had improvement overnight. She was getting more short of breath and her BUN and creatinine were increasing with IV fluids. IV fluids were stopped. Dobutamine 2.5 mcg/kg per minute was started. She said that she felt better with that and Lasix 60 mg IV was given. She had about 750 mL output with that. Her BUN and creatinine actually improved with that combination. She became more hypoxic during the day. She also needed to be put on oxygen. This morning, she says she generally feels better. REVIEW OF SYSTEMS: GENERAL: She was having bouts of being hot chills, but then she is comfortable this morning. There is no productive cough. HEENT: There is no change in vision, hearing, or swallowing. However, she is hard of hearing for a long time. PULMONARY: She says she is not short of breath, but then on exam, she is visibly short of breath and she does have labored breathing. CARDIAC: There is no complaint of chest pain, palpitations, or syncope. GI: There is no nausea, vomiting, or diarrhea. : There is some difficulty with urine output count and PureWick was used. MUSCULOSKELETAL: She has chronic back pain, but she has not complained of back pain this morning. There are no muscle pains. INTEGUMENT: There is no new skin breakdown. NEUROLOGIC: There are no focal deficits or weaknesses. CURRENT MEDICATIONS: Include; 1. Amiodarone 200 mg daily. 2. Carvedilol 12.5 mg twice a day. 3. Dobutamine currently at 2.5 mcg/kg per minute. 4. Pepcid 20 mg daily. 5. Gabapentin 100 mg t.i.d. 6. Vancomycin 750 mg twice per day. 7. Warfarin 7.5 mg daily. 8. Zonisamide 200 mg b.i.d. PHYSICAL EXAMINATION: Her telemetry was reviewed. She is in sinus rhythm with occasional PVCs. There is no concerning arrhythmia. VITAL SIGNS: Her latest vital signs include heart rate 74, blood pressure 116/71. She is on 2 L of oxygen by nasal cannula with oxygen saturation about 98%. GENERAL: She is alert and conversational, much more relaxed today than yesterday, but she is still confused. However, she is better today in terms of energy hung. However, she is still visibly short of breath and there is work of breathing. This increased work of breathing is a little bit less than yesterday. HEENT: Showed EOMI. Oropharynx has poor dentition. NECK: Her JVP is elevated about 14 cm at the earlobe with positive hepatojugular reflux. PULMONARY: There are significant crackles, especially in the right lung. So, she still has pulmonary edema. ABDOMEN: Soft, nontender. Positive bowel sounds. EXTREMITIES: Her lower extremity has minimal edema. LABORATORIES VALUES: Show white cell count 5.4, platelets 95. Her thrombocytopenia is getting better. Her chemistry showed sodium 139, potassium 4.3, chloride 111, bicarb 16, BUN 55, creatinine 2.52. This creatinine of 2.52 is actually improvement from last night. Her BNP value is 4459, this is a significant increase from her baseline values of 551 on the day of discharge from her last admission. ASSESSMENT: 64-year-old lady is suffering from recurrent mitral valve endocarditis in the setting of heart failure with reduced ejection fraction. Her heart failure with reduced ejection fraction is a nonischemic cardiomyopathy, EF about 25% on this round. She has both systolic and diastolic dysfunctions. Her mitral valve endocarditis was confirmed by transthoracic echocardiogram last night. It resides on the posterior leaflet. There is also positive blood culture with MSSA. With her significantly elevated BNP, her shortness of breath, she is now back in acute heart failure, most likely due to her endocarditis. She also has acute kidney injury. It will be difficult for her to go through a thoracotomy with her low EF, mitral valve replacement may not save her. Unfortunately, [facility] has turned her down. Her insurance will not be accepted by [facility]. Thus, an alternate route needs to be sought out. She is at age 64, an urgent heart transplant evaluation can save her. Please see the following for my recommendations: RECOMMENDATIONS 1. Please place PICC. 2. Please start milrinone at 0.125 mcg/kg per minute. If her systolic blood pressure is greater than 100 after 2 hours, then increase to 0.25 mcg/kg per minute. The rationale for milrinone is to generally increase the contractility. This also can decrease her blood pressure because she does have baseline hypertension. This has shorter half-life than hydralazine. So consequently, if she drops her blood pressure, it could be quickly stopped. Finally, it can be used in conjunction with carvedilol, thus it can help her for long-term. 3. Please continue the dobutamine for now. If milrinone does work, then we would switch her over from dobutamine to milrinone. 4. Please give Lasix 60 mg IV one dose now to see what her output is. 5. Please give her magnesium sulfate 2 g IV one dose now, because we do not want any arrhythmias, and please continue to check magnesium daily, it has not been checked. 6. I will talk to the about potential seeking transfer to [facility] under Dr. Junior Hernandez. 7. we will need to do transesophageal echocardiogram to clearly delineate her mitral valve and potential tricuspid valve morphology. With that, we will consult Cardiothoracic Surgery. It has been a pleasure taking care of Ms. Marrero. If you have any questions, please give me a call. The total critical care time is 60 minutes. This includes personally performing history and physical, coordinating care with multiple services, changing drips, and holding family conference. Job ID: [id number] [facility]ITAL[facility]
--- NOTE | 2020-01-20 16:09 | PDOC.HOSPP ---
- Subjective Encounter Date: 01/21/20 Encounter Time: 10:45 Subjective: Patient up in bed appears confused. - Objective Vital Signs & Weight: Vital Signs (12 hours) Temp BP Pulse Ox 01/20/20 13:16 96 01/20/20 08:36 134/81 01/20/20 08:00 97 01/20/20 07:24 98.7 F Weight Admit Weight 149 lb 9.6 oz Weight 149 lb Most Recent Monitor Data Heart Rate from ECG 71 NIBP 115/73 NIBP BP-Mean 87 Respiration from ECG 24 SpO2 96 I&O: 01/19/20 01/20/20 01/21/20 06:59 06:59 06:59 Intake Total 1300 610 Output Total 750 Balance 1300 -140 Result Diagrams: 01/20/20 03:31 01/21/20 07:45 Hospitalist ROS - Review of Systems Cardiovascular: denies: chest pain, palpitations, orthopnea, paroxysmal noc. dyspnea, edema, light headedness, other Gastrointestinal: denies: nausea, vomiting, abdominal pain, diarrhea, constipation, melena, hematochezia, other Genitourinary: denies: dysuria, frequency, incontinence, hematuria, retention, other - Medication Medications: Active Medications Generic Name Dose Route Start Last Admin Trade Name Freq PRN Reason Stop Dose Admin Acetaminophen 650 mg 01/18/20 11:44 01/19/20 20:18 Acetaminophen 325 Mg Tab PO 650 mg Q4H PRN Administration Headache/Fever/Mild Pain (1-3) Amiodarone HCl 200 mg 01/19/20 09:00 01/20/20 08:37 Amiodarone 200 Mg Tab PO 200 mg DAILY ROBERT Administration Aripiprazole 5 mg 01/18/20 21:00 01/19/20 20:20 Aripiprazole 10 Mg Tab PO 5 mg HS ROBERT Administration Aripiprazole 5 mg 01/19/20 09:00 01/20/20 08:37 Aripiprazole 10 Mg Tab PO 5 mg DAILY ROBERT Administration Carvedilol 12.5 mg 01/18/20 17:00 01/20/20 08:36 Carvedilol 6.25 Mg Tab PO 12.5 mg BID-WM ROBERT Administration Famotidine 20 mg 01/20/20 09:00 01/20/20 08:38 Famotidine 20 Mg Tab PO 20 mg DAILY ROBERT Administration Gabapentin 100 mg 01/19/20 09:00 01/20/20 08:37 Gabapentin 100 Mg Cap PO 100 mg TID ROBERT Administration Dobutamine HCl/Dextrose 500 mg 250 mls @ 5.089 mls/hr 01/19/20 19:00 01/19/20 19:59 / Device IVPB 250 mls INF ROBERT Administration Protocol 2.5 MCG/KG/MIN Cefazolin Sodium/Dextrose 2 gm 50 mls @ 100 mls/hr 01/20/20 09:00 01/20/20 08:35 / Device IVPB 50 mls Q12HR ROBERT Administration Milrinone Lactate/Dextrose 100 mls @ 2.534 mls/hr 01/20/20 08:15 01/20/20 08:31 Milrinone Lactate/D5w IVPB 100 mls INF ROBERT Administration 0.125 MCG/KG/MIN Sodium Chloride 10 ml 01/18/20 21:00 01/20/20 08:38 Flush - Normal Saline 10 Ml Syringe IVF 10 ml Q12HR ROBERT Administration Zonisamide 200 mg 01/19/20 09:00 01/20/20 08:37 Zonisamide 100 Mg Cap PO 200 mg BID ROBERT Administration - Exam Neck: negative: supple, symmetric, no JVD, no thyromegaly, no lymphadenopathy, no carotid bruit, JVD Heart - other findings: Systolic murmur heard in the left second intercostal space and apex area Respiratory: negative: CTAB, no wheezes, no rales, no ronchi, normal chest expansion, no tachypnea, normal percussion, rales, rhonchi, tachypneic, wheezes Gastrointestinal: negative: soft, non-tender, non-distended, normal bowel sounds, no palpable masses, no hepatomegaly, no splenomegaly, no bruit, no guarding, no rigidity, tender to palpation, distended, diminished bowl sounds, voluntary guarding Hosp A/P (1) Fever Code(s): R50.9 - FEVER, UNSPECIFIED Status: Acute (2) Bacteremia Code(s): R78.81 - BACTEREMIA Status: Acute (3) Endocarditis Code(s): I38 - ENDOCARDITIS, VALVE UNSPECIFIED Status: Acute Qualifiers: Endocarditis type: infective (4) Metabolic acidosis Code(s): E87.2 - ACIDOSIS Status: Acute (5) CKD (chronic kidney disease) stage 3, GFR 30-59 ml/min Code(s): N18.3 - CHRONIC KIDNEY DISEASE, STAGE 3 (MODERATE) * DO NOT USE * Status: Chronic (6) Chronic anticoagulation Code(s): Z79.01 - PUBLIC RELATIONS MANAGER (CURRENT) USE OF ANTICOAGULANTS Status: Chronic (7) Cocaine use Code(s): F14.90 - COCAINE USE, UNSPECIFIED, UNCOMPLICATED Status: Chronic (8) H/O mechanical aortic valve replacement Code(s): Z95.2 - PRESENCE OF PROSTHETIC HEART VALVE Status: Chronic (9) Acute metabolic encephalopathy Code(s): G93.41 - METABOLIC ENCEPHALOPATHY Status: Resolved (10) Sepsis Code(s): A41.9 - SEPSIS, UNSPECIFIED ORGANISM Status: Resolved - Plan pt's blood cx are positive for staph will continue abx. cardiology consulted. will hold entresto. Patient has a 1.5 cm vegetation in her mitral valve. She finished round of antibiotics. She continues to have high fevers. Cardiology and infectious disease has been consulted. Patient is on Coumadin we will continue current management. 01/19 we will continue current antibiotics. Plans to transfer the patient to [place]. She is continues to be confused. May require EMMA to rule out abscess. Patient is currently on dobutamine drip. We will continue to hold Entresto.
[2020-01-21 04:27] LABS: Prothrombin Time 44.6 sec (12.0-14.7)
[2020-01-21] MEDS: DOBUTamine 500 mg/250 ml 500 MG in Premix Bag 1 BAG IVPB SCH (04:29)
[2020-01-21 04:36] LABS: INR-International Normal Ratio 4.6
[2020-01-21 08:24] LABS: ALT (SGPT) 18 U/L (8-55); AST (SGOT) 20 U/L (5-34); Albumin 2.8 g/dL (3.4-4.8); Alkaline Phosphatase 78 U/L (40-110); Anion Gap 14 mmol/L (10-20); BUN (Urea Nitrogen) 49 mg/dL (9.8-20.1); Bilirubin, Total 0.4 mg/dL (0.2-1.2); Calc. Creatinine Clearance 30 mL/min (70-130); Calcium 8.1 mg/dL (7.8-10.44); Carbon Dioxide 19 mmol/L (23-31); Chloride 113 mmol/L (98-107); Estimated GFR-MDRD 24; Globulin 2.7 g/dL (2.4-3.5); Glucose 97 mg/dL (80-115); Potassium 3.6 mmol/L (3.5-5.1); Protein, Total 5.5 g/dL (6.0-8.3); Sodium 142 mmol/L (136-145)
[2020-01-21] MEDS ORDERED: Furosemide 40 MG/4 ML VIAL SLOW IVP SCH (09:00)
[2020-01-21] MEDS ORDERED: Magnesium 2 GM/50 ML 2 GM in Premix Bag 1 BAG IVPB SCH (09:30)
[2020-01-21] MEDS: Amiodarone 200 MG TAB PO SCH (09:36)
[2020-01-21] MEDS: Zonisamide 100 MG CAP PO SCH ×2 (09:36→20:36)
[2020-01-21] MEDS: Aripiprazole 10 MG TAB PO SCH ×2 (09:36→20:36)
[2020-01-21] MEDS: Gabapentin 100 MG CAP PO SCH ×3 (09:36→20:37)
[2020-01-21] MEDS: Famotidine 20 MG TAB PO SCH (09:36)
[2020-01-21] MEDS: CEFAZOLIN 2 GM in Premix Bag 1 BAG IVPB SCH ×2 (09:37→20:40)
--- NOTE | 2020-01-21 15:36 | PDOC.HOSPP ---
- Subjective Encounter Date: 01/21/20 Encounter Time: 11:15 Subjective: Patient up in bed very hard of hearing. Patient still appears a little confused. - Objective Vital Signs & Weight: Vital Signs (12 hours) Temp Pulse Ox 01/21/20 11:22 98.0 F 01/21/20 07:54 100 01/21/20 07:30 98.4 F 01/21/20 03:52 97.8 F Weight Admit Weight 149 lb 9.6 oz Weight 149 lb 12.8 oz Most Recent Monitor Data Heart Rate from ECG 89 NIBP 91/54 NIBP BP-Mean 66 Respiration from ECG 20 SpO2 100 I&O: 01/20/20 01/21/20 01/22/20 06:59 06:59 06:59 Intake Total 610 405 Output Total 750 350 950 Balance -140 55 -950 Result Diagrams: 01/20/20 03:31 01/21/20 07:45 Hospitalist ROS - Review of Systems Cardiovascular: denies: chest pain, palpitations, orthopnea, paroxysmal noc. dyspnea, edema, light headedness, other Gastrointestinal: denies: nausea, vomiting, abdominal pain, diarrhea, con stipation, melena, hematochezia, other Genitourinary: denies: dysuria, frequency, incontinence, hematuria, retention, other - Medication Medications: Active Medications Generic Name Dose Route Start Last Admin Trade Name Freq PRN Reason Stop Dose Admin Acetaminophen 650 mg 01/18/20 11:44 01/19/20 20:18 Acetaminophen 325 Mg Tab PO 650 mg Q4H PRN Administration Headache/Fever/Mild Pain (1-3) Amiodarone HCl 200 mg 01/19/20 09:00 01/21/20 09:36 Amiodarone 200 Mg Tab PO 200 mg DAILY ROBERT Administration Aripiprazole 5 mg 01/18/20 21:00 01/20/20 20:15 Aripiprazole 10 Mg Tab PO 5 mg HS ROBERT Administration Aripiprazole 5 mg 01/19/20 09:00 01/21/20 09:36 Aripiprazole 10 Mg Tab PO 5 mg DAILY ROBERT Administration Famotidine 20 mg 01/20/20 09:00 01/21/20 09:36 Famotidine 20 Mg Tab PO 20 mg DAILY ROBERT Administration Gabapentin 100 mg 01/19/20 09:00 01/21/20 09:36 Gabapentin 100 Mg Cap PO 100 mg TID ROBERT Administration Dobutamine HCl/Dextrose 500 mg 250 mls @ 10.179 mls/hr 01/19/20 19:00 01/21/20 04:29 / Device IVPB 250 mls INF ROBERT Administration Protocol 5 MCG/KG/MIN Cefazolin Sodium/Dextrose 2 gm 50 mls @ 100 mls/hr 01/20/20 09:00 01/21/20 09:37 / Device IVPB 50 mls Q12HR ROBERT Administration Sodium Chloride 10 ml 01/18/20 21:00 01/21/20 09:37 Flush - Normal Saline 10 Ml Syringe IVF 10 ml Q12HR ROBERT Administration Zonisamide 200 mg 01/19/20 09:00 01/21/20 09:36 Zonisamide 100 Mg Cap PO 200 mg BID ROBERT Administration - Exam Heart: negative: RRR, no murmur, no gallops, no rubs, normal peripheral pulses, irregular, diminshed peripheral pulses, murmur present, II/IV, III/IV Respiratory: negative: CTAB, no wheezes, no rales, no ronchi, normal chest expansion, no tachypnea, normal percussion, rales, rhonchi, tachypneic, wheezes Gastrointestinal: negative: soft, non-tender, non-distended, normal bowel sounds, no palpable masses, no hepatomegaly, no splenomegaly, no bruit, no guarding, no rigidity, tender to palpation, distended, diminished bowl sounds, voluntary guarding Hosp A/P (1) Fever Code(s): R50.9 - FEVER, UNSPECIFIED Status: Acute (2) Bacteremia Code(s): R78.81 - BACTEREMIA Status: Acute (3) Endocarditis Code(s): I38 - ENDOCARDITIS, VALVE UNSPECIFIED Status: Acute Qualifiers: Endocarditis type: infective (4) Metabolic acidosis Code(s): E87.2 - ACIDOSIS Status: Acute (5) CKD (chronic kidney disease) stage 3, GFR 30-59 ml/min Code(s): N18.3 - CHRONIC KIDNEY DISEASE, STAGE 3 (MODERATE) * DO NOT USE * Status: Chronic (6) Chronic anticoagulation Code(s): Z79.01 - GRAIN MERCHANDISING MANAGER (CURRENT) USE OF ANTICOAGULANTS Status: Chronic (7) Cocaine use Code(s): F14.90 - COCAINE USE, UNSPECIFIED, UNCOMPLICATED Status: Chronic (8) H/O mechanical aortic valve replacement Code(s): Z95.2 - PRESENCE OF PROSTHETIC HEART VALVE Status: Chronic (9) Acute metabolic encephalopathy Code(s): G93.41 - METABOLIC ENCEPHALOPATHY Status: Resolved (10) Sepsis Code(s): A41.9 - SEPSIS, UNSPECIFIED ORGANISM Status: Resolved - Plan pt's blood cx are positive for staph will continue abx. cardiology consulted. will hold entresto. Patient has a 1.5 cm vegetation in her mitral valve. She finished round of antibiotics. She continues to have high fevers. Cardiology and infectious disease has been consulted. Patient is on Coumadin we will continue current management. 01/19 we will continue current antibiotics. Plans to transfer the patient to [place]. She is continues to be confused. May require EMMA to rule out abscess. Patient is currently on dobutamine drip. We will continue to hold Entresto. 01/20 continue current antibiotics. Patient's creatinine improving. Patient's currently on dobutamine drip. Per heart failure patient will require PICC line and will be placed on a milrinone drip. Patient's creatinine continues to improve. Patient's INR is supratherapeutic will decrease Coumadin to 5 mg.
[2020-01-21] MEDS: Carvedilol 6.25 MG TAB PO SCH ×2 (15:39→17:06)
[2020-01-21] MEDS: Acetaminophen 325 MG TAB PO PRN (20:37)
[2020-01-22 04:57] VITALS: BMI 24.8
[2020-01-22 06:23] LABS: INR-International Normal Ratio 3.6; Prothrombin Time 36.5 sec (12.0-14.7)
[2020-01-22 06:24] LABS: #Eosinphils 0.1 thou/uL (0.0-0.7); #Lymphocytes 0.8 thou/uL (1.20-3.40); #Monocytes 0.3 thou/uL (0.11-0.59); #Neutrophils 2.5 thou/uL (1.40-6.50); %Basophils 0.7 % (0.0-1.0); %Eosinophils 3.5 % (0.0-10.0); %Lymphocytes 20.7 % (21.0-51.0); %Monocytes 8.6 % (0.0-10.0); %Neutrophils 66.5 % (42.0-75.0); Mean Corpuscular HGB CONC 31.9 g/dL (32.0-36.0); Mean Corpuscular Hemoglobin 26.6 pg (27.0-31.0); Mean Corpuscular Volume 83.3 fL (78.0-98.0); Mean Platelet Volume 10.6 fL (7.4-10.4); Platelet Count 77 thou/uL (130-400); RBC Distribution Width 16.6 % (11.5-14.5); Red Blood Cell (RBC) Count 3.38 mill/uL (4.20-5.40); White Blood Cell (WBC) Count 3.7 thou/uL (4.8-10.8)
[2020-01-22 06:41] LABS: Anion Gap 12 mmol/L (10-20); BUN (Urea Nitrogen) 43 mg/dL (9.8-20.1); Calc. Creatinine Clearance 33 mL/min (70-130); Calcium 8.2 mg/dL (7.8-10.44); Carbon Dioxide 19 mmol/L (23-31); Chloride 114 mmol/L (98-107); Estimated GFR-MDRD 28; Glucose 101 mg/dL (80-115); Magnesium 2.5 mg/dL (1.6-2.6); Potassium 3.8 mmol/L (3.5-5.1); Sodium 141 mmol/L (136-145)
[2020-01-22] MEDS: Aripiprazole 10 MG TAB PO SCH (07:08)
[2020-01-22] MEDS: Amiodarone 200 MG TAB PO SCH (07:08)
[2020-01-22] MEDS: Famotidine 20 MG TAB PO SCH (07:09)
[2020-01-22] MEDS: Gabapentin 100 MG CAP PO SCH ×3 (07:09→20:49)
[2020-01-22] MEDS: Zonisamide 100 MG CAP PO SCH ×2 (07:09→20:50)
[2020-01-22] MEDS: Carvedilol 6.25 MG TAB PO SCH ×2 (07:13→17:19)
[2020-01-22] MEDS: CEFAZOLIN 2 GM in Premix Bag 1 BAG IVPB SCH ×2 (07:13→20:49)
[2020-01-22] MEDS: DOBUTamine 500 mg/250 ml 500 MG in Premix Bag 1 BAG IVPB SCH (07:14)
--- NOTE | 2020-01-22 10:29 | PRG ---
DATE OF SERVICE: 01/22/2020 SUBJECTIVE: Ms. Marrero had an excellent day. She is breathing easy. She had a good appetite, was able to eat. She got a bath. She says she feels good. She also responded well to dobutamine 5 mcg/kg/minute. She is able to sustain her systolic blood pressure about 100-110. She had a good urine output and today she feels more energetic, wants to be able to walk. REVIEW OF SYSTEMS: GENERAL: There is no fever, chills, or productive cough. HEENT: There is no change in vision, hearing, or swallowing. She is very hard of hearing, that is chronic. PULMONARY: Please see HPI. CARDIAC: There is no chest pain, palpitations, or syncope. GI: There is no nausea, vomiting or diarrhea. : She is able to urinate well. MUSCULOSKELETAL: There are no muscle or joint pains. INTEGUMENT There is no skin breakdown. NEUROLOGIC: There are no focal deficits. CURRENT MEDICATIONS: Include: 1. Amiodarone 200 mg daily. 2. Abilify 5 mg in the morning and 5 mg in the afternoon. 3. Carvedilol 6.25 mg b.i.d. 4. Cefazolin g IV q.12 hours. 5. Dobutamine currently at 5 mcg/kg/minute. 6. Pepcid 20 mg daily. 7. Gabapentin 100 mg t.i.d. 8. Warfarin now restarting at 5 mg at night. 9. Zonisamide. The telemetry was reviewed. She is in sinus rhythm; however, she does have PVCs. Other than that, there is no concerning arrhythmia. OBJECTIVE: VITAL SIGNS: At the time of exam, her heart rate is 67, blood pressure 123/81, oxygen saturation on room air was about 97% to 98%. GENERAL: She is alert and conversational, is much relaxed today. RESPIRATORY: Her breathing is as best as seen today. HEENT: Show EOMI. Oropharynx benign with moist mucosa. NECK: Her JVP is still elevated, but less so today. It is about 11 cm. PULMONARY: There is good air movement bilaterally. There are crackles at the right base. This is much improved from yesterday, thus her pulmonary edema has almost completely dissipated. CARDIAC: She has regular rate and rhythm with loud 2/6 holosystolic murmur at apex with radiation to the left axilla. There is a 2/6 holosystolic murmur at the left sternal border. She has occasional arrhythmia. ABDOMEN: Soft, nontender. Positive bowel sounds. EXTREMITIES: Her lower extremities are warm and well perfused. There are positive dorsalis pedis pulses. IMAGING: Her CBC shows that she has a white cell count of 3.7, hemoglobin 7, platelets 77. LABORATORY DATA: Her electrolytes show sodium 141, potassium 3.8, chloride 114, bicarb 19, BUN is at 48, creatinine 1.8. She has an input of 402 and output of 1900, so it looks like she is net negative. ASSESSMENT: 64-year-old lady is holding steady with recurrent mitral valve endocarditis that caused acute heart failure. She is requiring dobutamine at 5 mcg/kg/minute to sustain cardiac output. She does have most likely a nonischemic cardiomyopathy with systolic and diastolic dysfunctions. Her diuresis can be slowed down today. She has been accepted at [facility] provisionally. I believe they are waiting for a bed. Dr. Pierce has accepted her. The family has agreed with transfer to [facility]. Because she has low ejection fraction of 25%, received aortic valve replacement twice already, and persistent breakthrough mitral valve endocarditis. She will need advanced therapies. It is either a very high risk mitral valve replacement, which may not work, because low ejection fraction or a more urgent evaluation for heart transplant. So, a referral and transfer to [facility] where they can do both high risk MV surgery or urgent evaluation for heart transplant is needed. RECOMMENDATIONS: 1. Continue dobutamine at 5 mcg/kg/minute. 2. Give potassium supplement 20 mEq b.i.d. for today. 3. Change her diuretics to Bumex 1 mg daily. 4. We will continue to work with [facility] for her transfer. The CDs for her TTE and TEU also already done. 5. A transesophageal cardiogram can be nice to document her current endocarditis. However, it is up to the radiotelephone technical operator. Her INR is 3.6 today, so we will restart her warfarin at lower dose of 5 mg daily. It has been a pleasure taking care of Ms. Marrero. If you have any questions, please give me a call. The critical care time is 40 minute. Job ID: [id number]
[2020-01-22 11:04] LABS: Hemoglobin 9.7 g/dL (12.0-16.0); Platelet Count 73 thou/uL (130-400)
--- NOTE | 2020-01-22 12:17 | PRG ---
DATE OF SERVICE: 01/21/2020 SUBJECTIVE: Ms. Marrero had a good overall day. There were many things that happened. 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 Unfortunately, she did not fare well on milrinone. The milrinone was titrated up to 0.25 mcg/kg/minute. Her systolic blood pressure dropped down to in the 80s. This was most likely due to her ongoing inflammatory septic state. The milrinone had to be stopped. Dobutamine had been titrated up to 5 mcg/kg/minute. She did respond to furosemide 60 mg IV quite well. She said that she felt better and urinated quite well all day. As of this morning, she is not in any discomfort, she is breathing easier, able to sleep last night. Due to her breakthrough mitral valve endocarditis, even after 3 months of antibiotics and her low ejection fraction and AVR x2, attempt was made to transfer to a center that can make definitive therapy. There is no capability of doing a mitral valve replacement here. Furthermore, mitral valve replacement with low EF likely to have a bad outcome. She was turned down by [facility] due to her insurance issue. We contacted [facility]. [facility] was physicians were interested about accepting the patient. However, late last night finance did not come through. They would not take her insurance. At this point, we will need to contact [facility]. If [facility] will not accept, then we will go back to [facility] in [place]. REVIEW OF SYSTEMS: GENERAL: There is no fever, chills, or productive cough. HEENT: There is no change in vision, hearing, or swallowing. She is chronically hard of hearing. PULMONARY: She is breathing easier. CARDIAC: There is no chest pain, palpitations, or syncope. GI: There is no nausea, vomiting, diarrhea. She ate well yesterday. : She is urinating into the catheter slow. MUSCULOSKELETAL: She has chronic lower back pain, but she is not complaining of pain this morning. INTEGUMENT: There is no new skin breakdown. NEUROLOGIC: There are no focal deficits or weaknesses. MEDICATIONS: 1. Amiodarone 200 mg daily. 2. Abilify 5 mg p.o. in the morning 5 mg nighttime. 3. Carvedilol 12.5 mg q.12 hours. 4. Cefazolin 2 g IV q.12 hours. 5. Dobutamine now at 5 mcg/kg/minute. 6. Pepcid 20 mg daily. 7. Gabapentin 100 mg p.o. t.i.d. 8. Torsemide 10 mg daily. This will need to be discontinued 9. Warfarin 7.5 mg daily. 10. Zonisamide 200 mg b.i.d. PHYSICAL EXAMINATION: The telemetry was reviewed. She is in sinus rhythm with frequent PVCs. VITAL SIGNS: Her current vitals are heart rate 73, blood pressure 105/58. GENERAL: She is alert and conversational, reclining comfortably in bed. She is little less short of breath and has less of work breathing than yesterday. HEENT: EOMI. Oropharynx is benign with moist mucosa. NECK: Her JVP is about 11 cm with positive hepatojugular reflux. PULMONARY: She has crackles at the right mid region to the right base. She also has crackles at the left base, so consequently she still has pulmonary edema. CARDIAC: Regular rate and rhythm with normal S1, S2. There is 2/6 holosystolic murmur at the apex with radiation to the left axilla. There is also distinct aortic mechanical valve click. ABDOMEN: Mildly distended, soft, nontender. Positive bowel sounds. EXTREMITIES: Lower extremities are warm and well perfused. There is slight pedal edema with positive dorsalis pedis pulses bilaterally. LABORATORY DATA: Her CBC showed that white cell count 5.4, hemoglobin 8.9, platelets are 95. Her platelets are improving. Her chemistry this morning shows sodium 142, potassium 3.6, chloride 113, bicarb 19, there is an improvement. BUN is 49, there is improvement. Creatinine is 2.08; this is decreased from 2.52, this is an excellent improvement. Her total bilirubin is 0.4 with normal liver enzymes, all these are improvements. Her albumin is 2.8. INR is 4.6 today. ASSESSMENT: 64-year-old lady has reached a quasi stable state from her mitral valve endocarditis. She also has heart failure with reduced ejection fraction with combined systolic and diastolic dysfunction with ejection fraction about 25%. She did have acute renal failure. With increased cardiac output with dobutamine as she is now recovering nicely. She still has quite a bit of way to go. Her INR is too high at 4.6. So we need to hold warfarin today and could decrease to lower dose tomorrow and then we will also need to continue to diurese her because she is still volume overloaded. In the meantime, we will continue to find a place who can either do this high risk mitral valve replacement or do an urgent heart transplant evaluation. Her insurance will continue to be an issue. RECOMMENDATIONS: 1. Continue dobutamine of 5 mcg/kg/minute. 2. Please give her Lasix 60 mg IV one dose now. She tolerated that yesterday without any problems. 3. Please give K-Dur at 40 mg equivalent p.o. one dose now. 4. To give magnesium sulfate 2 g IV one dose now. 5. Please do a BMP, blood chemistry and magnesium every day. She is in acute renal injury and we are trying to correct her. So we need to monitor her electrolytes every day. 6. I will hold her warfarin today and restart it at 5 mg tomorrow. 7. Coordinated care with Dr. Boogie with INR of 4.6, is too dangerous for EMMA. 8. After speaking to Cardiothoracic Surgery here, they will not do mitral valve replacement here. There is no capability for that. So thus we will have no choice, but to find her center that can perform this task. 9. I am thankful that Dr. Dhillon has switched her to cefazolin because that is more renal friendly and also bactericidal. It has been a pleasure taking care of Ms. Marrero. If you have any questions, please give me a call. Critical care time is 60 minutes. This includes multiple visits, titrating inotropic drips, coordinating care with multiple other physicians + other centers, and explaining and counseling with the patient and and personally performing history and physical and titrating drip. Job ID: [id number] MTDD
[2020-01-22] MEDS ORDERED: PROPOFOL 0 ML ONE (13:44)
[2020-01-22] MEDS ORDERED: Ketamine 50 MG/ML (10ML VIAL) ONE (13:46)
--- NOTE | 2020-01-22 15:26 | PRG ---
DATE OF SERVICE: 01/22/2020 SUBJECTIVE: She was placed on Milrinone in addition to dobutamine, but the patient developed hypotension in the 80s. Milrinone was stopped. She was given furosemide, which worked well. Looks like no transfer is going to be possible. She denies any chest pain and no abdominal pain. She is a bit more oriented. OBJECTIVE: VITAL SIGNS: The temperature has normalized. BP 104/63, heart rate 74, respiratory rate 24, satting at 100% on room air. GENERAL: She is awake and less confused than when I 1st saw her. LUNGS: With fairly clear breath sounds. HEART: S1, S2. Regular rate. There is a murmur to the right of her sternal border and the apex. There is 2+ edema noted. I's and O's have been -1400 for today thus far. She is voiding in the bedside commode. LABORATORY DATA: White cell count 3.7, hemoglobin 9.7, platelets 73,000, 66% neutrophils. Creatinine is at 1.7. She is currently receiving cefazolin adjusted for renal function. The dose will go unchanged for the time being. She is also on warfarin. 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 Failed daptomycin treatment with recurrence of bacteremia. Confusional state related to it. There has been some early improvement right now and she will continue on cefazolin and she will be on long-term treatment for that. There has been improvement in various aspects of her clinical presentation including mental state, renal function, temperature. Medium and long-term prognosis still poor. Job ID: [id number]
--- NOTE | 2020-01-22 15:58 | SPC ---
Exam: Leftupper extremity ultrasound guided PICC line HISTORY: TPN, IV antibiotics Exposure:Not applicable FINDINGS: Lumen: Duallumen Trim length: 47 cm Distal tip:Right atrium Catheter flushes and aspirates without difficulty TECHNIQUE: Consent obtained to perform a left upper extremity PICC line with ultrasound guidance. Le ftarm was prepped and draped in a sterile fashion. 1% lidocaine, buffered with sodium bicarbonate was used for local anesthesia. Under ultrasound guidance, micropuncture needle was used to cannulate theleftvein. A 0.018 guidewire was advanced through the needle to level of the superior vena cava. Under fluoroscopy, the wire was further advanced into the inferior vena cava to document venous acces s. Wire was advanced to theright atrium. Dual lumen flushes and aspirates without difficulty. Patient tolerated the procedure well. No immediate or postprocedure complications IMPRESSION: Successfulleftupper surgery PICC line placement with ultrasound guidance
--- NOTE | 2020-01-22 18:28 | PDOC.HOSPP ---
- Subjective Encounter Date: 01/22/20 Encounter Time: 09:00 Subjective: Patient up in bed feels well no complaints. - Objective Vital Signs & Weight: Vital Signs (12 hours) Temp BP Pulse Ox 01/22/20 17:19 111/72 01/22/20 16:00 97.7 F 01/22/20 11:30 98.0 F 01/22/20 08:00 100 01/22/20 07:13 111/72 01/22/20 07:12 97.5 F L Weight Admit Weight 149 lb 9.6 oz Weight 145 lb 11.2 oz Most Recent Monitor Data Heart Rate from ECG 77 NIBP 113/67 NIBP BP-Mean 82 Respiration from ECG 21 SpO2 96 I&O: 01/21/20 01/22/20 01/23/20 06:59 06:59 06:59 Intake Total 405 402.9 Output Total 350 1900 600 Balance 55 -1497.1 -600 Result Diagrams: 01/22/20 10:36 01/22/20 10:35 Hospitalist ROS - Review of Systems Cardiovascular: denies: chest pain, palpitations, orthopnea, paroxysmal noc. dyspnea, edema, light headedness, other Gastrointestinal: denies: nausea, vomiting, abdominal pain, diarrhea, constipation, melena, hematochezia, other Genitourinary: denies: dysuria, frequency, incontinence, hematuria, retention, other - Medication Medications: Active Medications Generic Name Dose Route Start Last Admin Trade Name Freq PRN Reason Stop Dose Admin Acetaminophen 650 mg 01/18/20 11:44 01/21/20 20:37 Acetaminophen 325 Mg Tab PO 650 mg Q4H PRN Administration Headache/Fever/Mild Pain (1-3) Amiodarone HCl 200 mg 01/19/20 09:00 01/22/20 07:08 Amiodarone 200 Mg Tab PO Not Given DAILY ROBERT Aripiprazole 5 mg 01/19/20 09:00 01/22/20 07:08 Aripiprazole 10 Mg Tab PO Not Given DAILY ROBERT Carvedilol 6.25 mg 01/21/20 17:00 01/22/20 17:19 Carvedilol 6.25 Mg Tab PO 6.25 mg BID- ROBERT Administration Famotidine 20 mg 01/20/20 09:00 01/22/20 07:09 Famotidine 20 Mg Tab PO Not Given DAILY ROBERT Gabapentin 100 mg 01/19/20 09:00 01/22/20 14:41 Gabapentin 100 Mg Cap PO Not Given TID ROBERT Dobutamine HCl/Dextrose 500 mg 250 mls @ 10.179 mls/hr 01/19/20 19:00 01/22/20 07:14 / Device IVPB 250 mls INF ROBERT Administration Protocol 5 MCG/KG/MIN Cefazolin Sodium/Dextrose 2 gm 50 mls @ 100 mls/hr 01/20/20 09:00 01/22/20 07:13 / Device IVPB 50 mls Q12HR ROBERT Administration Sodium Chloride 10 ml 01/18/20 21:00 01/22/20 07:14 Flush - Normal Saline 10 Ml Syringe IVF 10 ml Q12HR ROBERT Administration Zonisamide 200 mg 01/19/20 09:00 01/22/20 07:09 Zonisamide 100 Mg Cap PO Not Given BID ROBERT - Exam Neck: negative: supple, symmetric, no JVD, no thyromegaly, no lymphadenopathy, no carotid bruit, JVD Heart - other findings: Systolic murmur to left sternal border and apical area Respiratory: negative: CTAB, no wheezes, no rales, no ronchi, normal chest expansion, no tachypnea, normal percussion, rales, rhonchi, tachypneic, wheezes Gastrointestinal: negative: soft, non-tender, non-distended, normal bowel sounds, no palpable masses, no hepatomegaly, no splenomegaly, no bruit, no guarding, no rigidity, tender to palpation, distended, diminished bowl sounds, voluntary guarding Hosp A/P (1) Fever Code(s): R50.9 - FEVER, UNSPECIFIED Status: Acute (2) Bacteremia Code(s): R78.81 - BACTEREMIA Status: Acute (3) Endocarditis Code(s): I38 - ENDOCARDITIS, VALVE UNSPECIFIED Status: Acute Qualifiers: Endocarditis type: infective (4) Metabolic acidosis Code(s): E87.2 - ACIDOSIS Status: Acute (5) CKD (chronic kidney disease) stage 3, GFR 30-59 ml/min Code(s): N18.3 - CHRONIC KIDNEY DISEASE, STAGE 3 (MODERATE) * DO NOT USE * Status: Chronic (6) Chronic anticoagulation Code(s): Z79.01 - RETIREMENT (CURRENT) USE OF ANTICOAGULANTS Status: Chronic (7) Cocaine use Code(s): F14.90 - COCAINE USE, UNSPECIFIED, UNCOMPLICATED Status: Chronic (8) H/O mechanical aortic valve replacement Code(s): Z95.2 - PRESENCE OF PROSTHETIC HEART VALVE Status: Chronic (9) Acute metabolic encephalopathy Code(s): G93.41 - METABOLIC ENCEPHALOPATHY Status: Resolved (10) Sepsis Code(s): A41.9 - SEPSIS, UNSPECIFIED ORGANISM Status: Resolved - Plan pt's blood cx are positive for staph will continue abx. cardiology consulted. will hold entresto. Patient has a 1.5 cm vegetation in her mitral valve. She finished round of antibiotics. She continues to have high fevers. Cardiology and infectious disease has been consulted. Patient is on Coumadin we will continue current management. 01/19 we will continue current antibiotics. Plans to transfer the patient to [place]. She is continues to be confused. May require EMMA to rule out abscess. Patient is currently on dobutamine drip. We will continue to hold Entresto. 01/20 continue current antibiotics. Patient's creatinine improving. Patient's currently on dobutamine drip. Per heart failure patient will require PICC line and will be placed on a milrinone drip. Patient's creatinine continues to improve. Patient's INR is supratherapeutic will decrease Coumadin to 5 mg. 01/21 plans to transfer patient to [facility] awaiting bed. Dr. Ochoa has already spoken to cardiology and [facility]. Patient's INR is 3.6 today. Kevin reardon had a EMMA which indicated that her vegetation has increased in size. Overall poor prognosis. She still on dobutamine. Her diuretics have been changed to Bumex.
[2020-01-23 04:02] LABS: INR-International Normal Ratio 3.6; Prothrombin Time 37.1 sec (12.0-14.7)
[2020-01-23 04:06] LABS: #Eosinphils 0.2 thou/uL (0.0-0.7); #Lymphocytes 0.7 thou/uL (1.20-3.40); #Monocytes 0.4 thou/uL (0.11-0.59); #Neutrophils 1.9 thou/uL (1.40-6.50); %Basophils 1.2 % (0.0-1.0); %Eosinophils 4.8 % (0.0-10.0); %Lymphocytes 23.1 % (21.0-51.0); %Monocytes 11.5 % (0.0-10.0); %Neutrophils 59.4 % (42.0-75.0); Hemoglobin 8.2 g/dL (12.0-16.0); Mean Corpuscular HGB CONC 31.8 g/dL (32.0-36.0); Mean Corpuscular Hemoglobin 26.6 pg (27.0-31.0); Mean Corpuscular Volume 83.5 fL (78.0-98.0); Platelet Count 55 thou/uL (130-400); RBC Distribution Width 16.5 % (11.5-14.5); Red Blood Cell (RBC) Count 3.09 mill/uL (4.20-5.40); White Blood Cell (WBC) Count 3.2 thou/uL (4.8-10.8)
[2020-01-23 04:15] LABS: Anion Gap 13 mmol/L (10-20); BUN (Urea Nitrogen) 33 mg/dL (9.8-20.1); Calc. Creatinine Clearance 40 mL/min (70-130); Calcium 7.9 mg/dL (7.8-10.44); Carbon Dioxide 20 mmol/L (23-31); Chloride 111 mmol/L (98-107); Estimated GFR-MDRD 35; Glucose 104 mg/dL (80-115); Potassium 3.7 mmol/L (3.5-5.1); Sodium 140 mmol/L (136-145)
[2020-01-23] MEDS: Aripiprazole 10 MG TAB PO SCH (08:34)
[2020-01-23] MEDS: Famotidine 20 MG TAB PO SCH (08:34)
[2020-01-23] MEDS: Gabapentin 100 MG CAP PO SCH ×3 (08:35→20:11)
[2020-01-23] MEDS: Amiodarone 200 MG TAB PO SCH (08:35)
[2020-01-23] MEDS: Carvedilol 6.25 MG TAB PO SCH ×2 (08:36→16:18)
[2020-01-23] MEDS: Zonisamide 100 MG CAP PO SCH ×2 (08:36→20:12)
[2020-01-23] MEDS: CEFAZOLIN 2 GM in Premix Bag 1 BAG IVPB SCH ×2 (08:38→20:11)
[2020-01-23] MEDS ORDERED: Potassium Chloride 20 MEQ TAB PO SCH (09:00)
[2020-01-23] MEDS ORDERED: Bumetanide 1 MG TAB PO SCH (09:00)
[2020-01-23] MEDS ORDERED: Potassium Chloride 20 MEQ in Premix Bag 1 BAG IVPB SCH (09:30)
[2020-01-23] MEDS ORDERED: Ondansetron PF 4 MG/2 ML Vial IVP PRN (09:31)
--- NOTE | 2020-01-23 10:08 | PRG ---
DATE OF SERVICE: 01/23/2020 SUBJECTIVE: Mrs. Marrero had a good day. She was lucid, conversational, able to move about a bit. She underwent transesophageal echocardiogram without any difficulties. However, upon returning, she had nausea, did not feel well and also 2 bouts of diarrhea that does seem to have resolved this morning. REVIEW OF SYSTEMS: GENERAL: There is no fever, chills, or productive cough. HEENT: There is no change in vision, hearing, or swallowing. However, she is chronically hard hearing. PULMONARY: She states she is not short of breath. CARDIAC: There is no complaint of palpitations, syncope or chest pains. GI: Please see HPI. : She is able to urinate on her own. MUSCULOSKELETAL: She is not complaining of muscle or joint pains. INTEGUMENT: There is no skin breakdown. NEUROLOGIC: There are no new focal deficits or weaknesses. CURRENT MEDICATIONS: 1. Amiodarone 200 mg daily. 2. Abilify 5 mg daily. 3. Bumex 1 mg daily. 4. Carvedilol 6.25 mg q.12 hours. 5. Cefazolin at 2 g IV q.12 hours. 6. Dobutamine at 5 mcg/kg/minute. 7. Pepcid at 20 mg daily. 8. Gabapentin at 100 mg 3 times a day. 9. Potassium chloride (K-Dur) at 20 mEq daily. 10. Warfarin at 5 mg q.h.s. 11. Zonisamide at 200 mg b.i.d. PHYSICAL EXAMINATION: Her telemetry was reviewed. She is in sinus rhythm. She has frequent PVCs but there is no concerning arrhythmia. VITAL SIGNS: She has increased blood pressure systolic between 108 to 132, diastolic between 66 and 79. GENERAL: She is alert and conversational, sitting comfortably in bed, eating her breakfast. HEENT: Show EOMI. Oropharynx is benign with moist mucosa. NECK: Her JVP is more elevated today at about 12 cm with positive hepatojugular reflux. PULMONARY: She has bilateral crackles lower half, so she has more pulmonary edema today. ABDOMEN: Soft, nontender. Positive bowel sounds. EXTREMITIES: Her lower extremity has minimal edema, positive dorsalis pedis pulses. LABORATORY DATA: Her CBC shows white cell count 3.3, hemoglobin 8.8, and platelets of 55, all of these are decreased. This could be dilutional. Chemistry shows sodium 140, potassium 3.7, chloride 111, bicarb 20, BUN 22, creatinine is 1.52, decrease in BUN and decrease in creatinine, they are both improvements. A transesophageal echocardiogram was reviewed. It showed a large 2.4 x 1.8 cm vegetation on posterior leaflet of the mitral valve. It also had some stranding coming off. So this is very large endocarditis. ASSESSMENT: 64-year-old lady is at a quasi-stable state due to mitral valve endocarditis. She is requiring dobutamine and IV diuretics to maintain her status. She also has a heart failure with reduced ejection fraction EF of about 25%. This places her at very high risk for mitral valve replacement surgery. She may not recover from such a surgery due to existing heart failure. She also has aortic valve replacement x2 already. On the good side, her renal function continues to improve. Today, she is more volume overloaded, so we will need to re- intensify her diuretics. Her best chance of life and survival will be transfer to a center who can either do a high-risk mitral valve replacement or consideration for urgent heart transplant evaluation. RECOMMENDATIONS: Please see the following for my recommendations: 1. Please provide Lasix 40 mg IV one dose now at 3 p.m. 2. Discontinue oral Bumex, this was not sufficient. 3. Restart Lasix at 20 mg IV b.i.d. starting tomorrow. 4. Please give KCl 20 mEq IV one dose now due to low potassium. 5. Increase frequency of K-Dur 20 mEq to twice a day starting tomorrow. 6. Start hydralazine 10 mg p.o. q.8 hours. 7. Zofran 4 mg IV q.8 hours p.r.n. for nausea. 8. Please add type and screen to the morning lab of January 23 9. Decrease warfarin to 4 mg p.o. q.h.s. It has been a pleasure taking care of Mrs. Timmy Marrero. If you have any questions, please give me a call. After reviewing the transesophageal echocardiogram, multiple conversations took place between myself and the staff design engineer at [facility]. They believe that she is at a very high risk. They want her in ICU bed. Also they accepted her for transfer. They were waiting for ICU bed. Critical care time is 40 minutes. Job ID: [id number] MTDD
--- NOTE | 2020-01-23 13:42 | EKG ---
Test Reason : Blood Pressure : / mmHG Vent. Rate : 099 BPM Atrial Rate : 099 BPM P-R Int : 128 ms QRS Dur : 120 ms QT Int : 382 ms P-R-T Axes : 000 035 123 degrees QTc Int : 490 ms Sinus rhythm with frequent Premature ventricular complexes Low voltage QRS Non-specific intra-ventricular conduction delay Nonspecific ST and T wave abnormality Abnormal ECG Confirmed by JACQUES KWOK DO ([id number]), purchase request editor RACHEL RIVERA ([id number]) on 01/23/2020 1:42:02 PM Referred By: Confirmed By:JACQUES KWOK DO
[2020-01-23] MEDS: hydrALAZINE 10 MG TAB PO SCH ×3 (14:00→21:51)
[2020-01-23] MEDS ORDERED: Furosemide 40 MG/4 ML VIAL SLOW IVP SCH (15:00)
[2020-01-23] MEDS ORDERED: Warfarin Sodium 5 MG TAB PO SCH (17:00)
[2020-01-23 19:17] VITALS: TEMP 98.3
--- NOTE | 2020-01-23 20:36 | PDOC.HOSPP ---
- Subjective Encounter Date: 01/23/20 Encounter Time: 15:15 Subjective: Patient was seen and examined in bed. She was comfortable had no complaints. No significant events overnight. At this time she has been accepted to [facility] however there is no bed availableshe is waiting for - Objective Vital Signs & Weight: Vital Signs (12 hours) Temp BP 01/23/20 19:17 98.3 F 01/23/20 16:18 123/77 01/23/20 16:00 98.2 F 01/23/20 12:00 97.5 F L 01/23/20 08:36 132/79 Weight Admit Weight 149 lb 9.6 oz Weight 149 lb 8 oz Most Recent Monitor Data Heart Rate from ECG 65 NIBP 122/66 NIBP BP-Mean 84 Respiration from ECG 21 SpO2 100 I&O: 01/22/20 01/23/20 01/24/20 06:59 06:59 06:59 Intake Total 402.9 790 723 Output Total 1900 1325 700 Balance -1497.1 -535 23 Result Diagrams: 01/23/20 03:33 01/23/20 03:33 Hospitalist ROS - Medication Medications: Active Medications Generic Name Dose Route Start Last Admin Trade Name Freq PRN Reason Stop Dose Admin Acetaminophen 650 mg 01/18/20 11:44 01/21/20 20:37 Acetaminophen 325 Mg Tab PO 650 mg Q4H PRN Administration Headache/Fever/Mild Pain (1-3) Amiodarone HCl 200 mg 01/19/20 09:00 01/23/20 08:35 Amiodarone 200 Mg Tab PO 200 mg DAILY ROBERT Administration Aripiprazole 5 mg 01/19/20 09:00 01/23/20 08:34 Aripiprazole 10 Mg Tab PO 5 mg DAILY ROBERT Administration Carvedilol 6.25 mg 01/21/20 17:00 01/23/20 16:18 Carvedilol 6.25 Mg Tab PO 6.25 mg BID-WM ROBERT Administration Famotidine 20 mg 01/20/20 09:00 01/23/20 08:34 Famotidine 20 Mg Tab PO 20 mg DAILY ROBERT Administration Gabapentin 100 mg 01/19/20 09:00 01/23/20 20:11 Gabapentin 100 Mg Cap PO 100 mg TID ROBERT Administration Hydralazine HCl 10 mg 01/23/20 14:00 01/23/20 14:00 Hydralazine 10 Mg Tab PO Not Given Q8HR ROBERT Dobutamine HCl/Dextrose 500 mg 250 mls @ 10.179 mls/hr 01/19/20 19:00 01/22/20 07:14 / Device IVPB 250 mls INF ROBERT Administration Protocol 5 MCG/KG/MIN Cefazolin Sodium/Dextrose 2 gm 50 mls @ 100 mls/hr 01/20/20 09:00 01/23/20 20:11 / Device IVPB 50 mls Q12HR ROBERT Administration Sodium Chloride 10 ml 01/18/20 21:00 01/23/20 20:12 Flush - Normal Saline 10 Ml Syringe IVF 10 ml Q12HR ROBERT Administration Sodium Chloride 10 ml 01/18/20 13:00 01/23/20 16:19 Flush - Normal Saline 10 Ml Syringe IVF 10 ml PRN PRN Administration Saline Flush Zonisamide 200 mg 01/19/20 09:00 01/23/20 20:12 Zonisamide 100 Mg Cap PO 200 mg BID ROBERT Administration - Exam General Appearance: awake alert Eye: PERRL, anicteric sclera Heart: RRR, no murmur, no rubs, normal peripheral pulses Respiratory: no wheezes, no rales, no ronchi, normal chest expansion Gastrointestinal: soft, non-tender, non-distended, normal bowel sounds Extremities: no cyanosis, no clubbing, no edema Neurological: cranial nerve grossly intact, no weakness Psychiatric: normal affect, A&O x 3 Hosp A/P - Plan 64-year-old female patient with a history of endocarditis admitted with persistent vegetation and significantly reduced EF. She is being followed by heart failure team and currently accepted at [facility] for possible high risk valvular surgery. Heart failure with reduced EF Continue diuresis with Lasix, Hydralazine p.o. started Awaiting transfer to [facility] for possible surgery. Cardiology following Infective endocarditis Continue on cefazolin ID following. Atrial fibrillation Continue warfarin and carvedilol Continue monitoring. Cocaine abuse Acute metabolic encephalopathy Resolved Sepsis Reason .
[2020-01-23 21:53] VITALS: BP 122/58
[2020-01-24] MEDS ORDERED: Furosemide 20 MG/2 ML VIAL SLOW IVP SCH (06:00)
[2020-01-24] MEDS ORDERED: Potassium Chloride 20 MEQ TAB PO SCH (08:00)
--- NOTE | 2020-01-24 08:00 | OP ---
DATE OF PROCEDURE: 01/22/2020 PROCEDURE PERFORMED: Transesophageal echocardiogram. INDICATION: This is a 64-year-old woman with endocarditis. DESCRIPTION OF PROCEDURE: The patient was taken to the PACU. The patient was sedated by Anesthesiology. A transesophageal probe was placed into the distal esophagus and stomach. Echocardiographic images were obtained. The transesophageal probe was removed. FINDINGS: 1. Severe decrease in left ventricular systolic function. 2. The left ventricle is dilated. 3. The mitral valve has a 2.0 x 1.6 cm mass noted attached to the mitral valve leaflets. 4. Mechanical aortic valve. 5. [id number] mitral regurgitation. 6. Moderate tricuspid regurgitation. 7. Atherosclerotic debris in the descending aorta. IMPRESSION: A large vegetation noted on the mitral valve leaflets. Job ID: [id number]
[2020-01-24] MEDS ORDERED: Warfarin Sodium 2 MG TAB PO SCH (17:00)
[2020-01-24] MEDS ORDERED: Warfarin Sodium 5 MG TAB PO SCH (17:00)
== END 2020-01-23 22:11 | disposition short-term general hospital (02) | DRG 871 ==
LOC: ERS 07:16 → ERHOLD 10:15 → 2NO 18:49 → IMCU/EMU 01-19 19:15
PROVIDERS: ADMIT Internal Medicine; ATTEND Internal Medicine
PROC: 02HV33Z Insertion of Infusion Device into Superior Vena Cava, Percutaneous Approach (ICD-10-PCS; principal; 2020-01-22)
PROC: B548ZZA Ultrasonography of Superior Vena Cava, Guidance (ICD-10-PCS; 2020-01-22)
PROC: B24BZZ4 Ultrasonography of Heart with Aorta, Transesophageal (ICD-10-PCS; 2020-01-22)
DX: A41.02 Sepsis due to Methicillin resistant Staphylococcus aureus (principal); I33.0 Acute and subacute infective endocarditis; G93.41 Metabolic encephalopathy; I50.23 Acute on chronic systolic (congestive) heart failure; N18.4 Chronic kidney disease, stage 4 (severe); I13.0 Hypertensive heart and chronic kidney disease with heart failure and stage 1 through stage 4 chronic kidney disease, or unspecified chronic kidney disease; D61.818 Other pancytopenia; E87.2 Acidosis; N17.9 Acute kidney failure, unspecified; I42.8 Other cardiomyopathies; Z20.828 Contact with and (suspected) exposure to other viral communicable diseases; I25.10 Atherosclerotic heart disease of native coronary artery without angina pectoris; D63.1 Anemia in chronic kidney disease; F14.90 Cocaine use, unspecified, uncomplicated; G40.909 Epilepsy, unspecified, not intractable, without status epilepticus; Z90.710 Acquired absence of both cervix and uterus; Z79.01 Long term (current) use of anticoagulants; Z95.2 Presence of prosthetic heart valve; Z88.5 Allergy status to narcotic agent; Z88.2 Allergy status to sulfonamides; Z88.8 Allergy status to other drugs, medicaments and biological substances; Z79.02 Long term (current) use of antithrombotics/antiplatelets; Z79.899 Other long term (current) drug therapy
CPT/HCPCS: 36415; 36569; 36600; 51701; 70450; 71045; 80048; 80053; 80202; 80306; 81003; 81015; 82553; 82565; 82805; 83605; 83735; 83880; 84484; 85014; 85018; 85025; 85049; 85610; 85730; 87040; 87077; 87086; 87149; 87186; 87635; 90471; 90662; 90732; 93005; 93306; 93312; 96365; 96367; C1751; G0008; G0009; J0690; J1250; J1644; J1940; J2260; J2543; J2704; J3370; J3475; J3480; J7050; U0003

== ENCOUNTER 2020-05-12 08:38 | Inpatient (IN) | payer OTHER ==
[2020-05-12] MEDS ORDERED: Furosemide 20 MG/2 ML VIAL ONE (09:03)
[2020-05-12 09:45] LABS: Hemoglobin 9.9 g/dL (12.0-16.0); Mean Corpuscular HGB CONC 32.2 g/dL (32.0-36.0); Mean Corpuscular Hemoglobin 30.3 pg (27.0-31.0); Mean Corpuscular Volume 94.1 fL (78.0-98.0); Mean Platelet Volume 12.3 fL (7.4-10.4); Platelet Count 18 thou/uL (130-400); RBC Distribution Width 13.3 % (11.5-14.5); Red Blood Cell (RBC) Count 3.27 mill/uL (4.20-5.40); White Blood Cell (WBC) Count 5.9 thou/uL (4.8-10.8)
[2020-05-12 09:48] LABS: ALT (SGPT) 13 U/L (8-55); AST (SGOT) 38 U/L (5-34); Alkaline Phosphatase 111 U/L (40-110); Anion Gap 16 mmol/L (10-20); BUN (Urea Nitrogen) 29 mg/dL (9.8-20.1); Bilirubin, Total 0.7 mg/dL (0.2-1.2); Calc. Creatinine Clearance 0 mL/min (70-130); Calcium 8.9 mg/dL (7.8-10.44); Carbon Dioxide 19 mmol/L (23-31); Chloride 110 mmol/L (98-107); Globulin 4.1 g/dL (2.4-3.5); Glucose 114 mg/dL (80-115); Potassium 5.2 mmol/L (3.5-5.1); Protein, Total 8.1 g/dL (5.8-8.1); Sodium 140 mmol/L (136-145)
[2020-05-12 09:49] LABS: #Eosinphils 0.1 thou/uL (0.0-0.7); #Lymphocytes 1.1 thou/uL (1.20-3.40); #Monocytes 0.3 thou/uL (0.11-0.59); #Neutrophils 4.5 thou/uL (1.40-6.50); %Basophils 0.2 % (0.0-1.0); %Eosinophils 1.2 % (0.0-10.0); %Lymphocytes 18.5 % (21.0-51.0); %Monocytes 4.2 % (0.0-10.0); %Neutrophils 75.9 % (42.0-75.0); Elliptocytes SLIGHT = 2-5 cells (100X) (0-1/hpf); MDiff Complete? YES; Platelet Morphology Comment Appears Decreased
[2020-05-12 10:00] LABS: SARS-CoV-2 NAA Rapid Test Not Detected (NotDetected)
[2020-05-12 10:03] LABS: CKMB 2.6 ng/mL (0-6.6)
[2020-05-12 10:25] LABS: INR-International Normal Ratio 1.6; Prothrombin Time 19.6 sec (12.0-14.7)
[2020-05-12 10:26] LABS: PTT 60.4 sec (22.9-36.1)
[2020-05-12 12:51] LABS: Troponin I 0.038 ng/mL (< 0.028)
[2020-05-12] MEDS ORDERED: Loratadine 10 MG TAB PO PRN (15:29)
[2020-05-12] MEDS ORDERED: Ondansetron PF 4 MG/2 ML Vial IVP PRN (15:29)
[2020-05-12] MEDS ORDERED: Cepastat Lozenges 1 LOZ PO PRN (15:29)
[2020-05-12] MEDS ORDERED: Senokot S 8.6-50 MG TAB PO PRN (15:29)
[2020-05-12] MEDS ORDERED: Zolpidem Tartrate 5 MG TAB PO PRN (15:29)
[2020-05-12] MEDS ORDERED: Nitroglycerin 0.4 MG TAB (25 Tab Bottle) SL PRN (15:29)
[2020-05-12] MEDS ORDERED: Bisacodyl 10 MG SUPP PR PRN (15:29)
[2020-05-12] MEDS ORDERED: hydrALAZINE 20 MG/ML VIAL SLOW IVP PRN (15:29)
[2020-05-12] MEDS ORDERED: Ondansetron ODT 4 MG TAB PO PRN (15:29)
[2020-05-12] MEDS ORDERED: Loperamide HCl 2 MG CAP PO PRN (15:29)
[2020-05-12] MEDS ORDERED: Calcium Carbonate 500 MG ChewTAB PO PRN (15:29)
[2020-05-12] MEDS ORDERED: GUAIFENESIN SF SOLN 200 MG/10 ML UDCUP PO PRN (15:29)
[2020-05-12] MEDS ORDERED: Sodium Chloride 0.65% Nasal 44 ML BOT EA NARE PRN (15:29)
[2020-05-12 15:56] LABS: Troponin I 0.038 ng/mL (< 0.028)
[2020-05-12] MEDS ORDERED: Acetaminophen 325 MG TAB PO PRN (16:03)
[2020-05-12] MEDS ORDERED: Furosemide 40 MG/4 ML VIAL SLOW IVP SCH (16:15)
[2020-05-12] MEDS: Carvedilol 6.25 MG TAB PO SCH (17:38)
[2020-05-12] MEDS: Warfarin Sodium 7.5 MG TAB PO SCH (17:39)
[2020-05-12] MEDS: Zonisamide 100 MG CAP PO SCH (21:31)
[2020-05-12] MEDS: Gabapentin 100 MG CAP PO SCH (21:31)
[2020-05-13 04:19] LABS: INR-International Normal Ratio 1.7; Prothrombin Time 20.2 sec (12.0-14.7)
[2020-05-13 04:35] VITALS: BMI 23.3
[2020-05-13 04:36] LABS: ALT (SGPT) 10 U/L (8-55); AST (SGOT) 15 U/L (5-34); Albumin 3.3 g/dL (3.4-4.8); Alkaline Phosphatase 88 U/L (40-110); Anion Gap 15 mmol/L (10-20); BUN (Urea Nitrogen) 36 mg/dL (9.8-20.1); Bilirubin, Total 0.7 mg/dL (0.2-1.2); Calc. Creatinine Clearance 38 mL/min (70-130); Calcium 8.9 mg/dL (7.8-10.44); Carbon Dioxide 23 mmol/L (23-31); Chloride 108 mmol/L (98-107); Globulin 3.1 g/dL (2.4-3.5); Glucose 109 mg/dL (80-115); Magnesium 2.1 mg/dL (1.6-2.6); Potassium 3.8 mmol/L (3.5-5.1); Protein, Total 6.4 g/dL (5.8-8.1); Sodium 142 mmol/L (136-145); Uric Acid 10.1 mg/dL (2.6-6.0)
[2020-05-13 04:47] LABS: #Monocytes 0.3 thou/uL (0.11-0.59); #Neutrophils 3.3 thou/uL (1.40-6.50); %Basophils 0.4 % (0.0-1.0); %Eosinophils 0.4 % (0.0-10.0); %Lymphocytes 22.4 % (21.0-51.0); %Monocytes 5.9 % (0.0-10.0); %Neutrophils 70.9 % (42.0-75.0); Critical Call w/ Read Back 2NO.TB1; Hemoglobin 8.1 g/dL (12.0-16.0); Mean Corpuscular HGB CONC 32.8 g/dL (32.0-36.0); Mean Corpuscular Hemoglobin 30.4 pg (27.0-31.0); Mean Corpuscular Volume 92.6 fL (78.0-98.0); Platelet Count 28 thou/uL (130-400); Platelet Morphology Comment Appears Decreased; RBC Distribution Width 13.1 % (11.5-14.5); Red Blood Cell (RBC) Count 2.66 mill/uL (4.20-5.40); White Blood Cell (WBC) Count 4.6 thou/uL (4.8-10.8)
[2020-05-13] MEDS: Furosemide 40 MG/4 ML VIAL SLOW IVP SCH ×2 (05:56→15:04)
[2020-05-13] MEDS: Carvedilol 6.25 MG TAB PO SCH ×2 (07:40→16:09)
[2020-05-13 07:41] LABS: Bilirubin Negative (Negative); Blood, Urine Negative (Negative); Clarity Clear (Clear); Glucose, Urine (Dipstick) Normal (Negative); Ketone, Urine Negative (Negative); Leukocyte 25 Leu/uL (Negative); Nitrite Negative (Negative); Protein, Urine (Dipstick) 10 mg/dL (Neg-Trace); RBC/HPF 0-3 HPF (0-3); Specific Gravity, Urine 1.013 (1.002-1.036); Squamous Epithelial 0-3 HPF (0-3); Urobilinogen Normal mg/dL (Less than 2); WBC/HPF 0-3 HPF (0-3); pH, Urine 5.5 (5.0-9.0)
[2020-05-13] MEDS: Amiodarone 200 MG TAB PO SCH (07:41)
[2020-05-13] MEDS: Gabapentin 100 MG CAP PO SCH ×3 (07:41→21:20)
[2020-05-13] MEDS: Ferrous Sulfate 325 MG TAB PO SCH (07:41)
[2020-05-13 07:49] LABS: Bacteria/HPF None Seen HPF (None Seen)
[2020-05-13] MEDS: Aripiprazole 10 MG TAB PO SCH (08:44)
[2020-05-13] MEDS ORDERED: Sacubitril 49 MG/Valsartan 51 MG TABLET PO SCH (09:00)
[2020-05-13] MEDS: Zonisamide 100 MG CAP PO SCH ×2 (10:40→21:23)
[2020-05-13] MEDS: Warfarin Sodium 7.5 MG TAB PO SCH (16:11)
[2020-05-14 05:19] LABS: #Eosinphils 0.1 thou/uL (0.0-0.7); #Lymphocytes 1.3 thou/uL (1.20-3.40); #Monocytes 0.3 thou/uL (0.11-0.59); #Neutrophils 2.6 thou/uL (1.40-6.50); %Basophils 0.2 % (0.0-1.0); %Eosinophils 2.5 % (0.0-10.0); %Lymphocytes 29.5 % (21.0-51.0); %Monocytes 7.6 % (0.0-10.0); %Neutrophils 60.2 % (42.0-75.0); Hemoglobin 8.3 g/dL (12.0-16.0); Hemoglobin 8.4 g/dL (12.0-16.0); Mean Corpuscular Hemoglobin 29.8 pg (27.0-31.0); Mean Corpuscular Volume 93.2 fL (78.0-98.0); Mean Platelet Volume 10.1 fL (7.4-10.4); Platelet Count 42 thou/uL (130-400); Platelet Count 44 thou/uL (130-400); RBC Distribution Width 13.2 % (11.5-14.5); Red Blood Cell (RBC) Count 2.79 mill/uL (4.20-5.40); White Blood Cell (WBC) Count 4.3 thou/uL (4.8-10.8)
[2020-05-14 05:21] LABS: INR-International Normal Ratio 1.8; Prothrombin Time 21.1 sec (12.0-14.7)
[2020-05-14 05:38] LABS: Anion Gap 14 mmol/L (10-20); BUN (Urea Nitrogen) 47 mg/dL (9.8-20.1); Calc. Creatinine Clearance 35 mL/min (70-130); Calcium 8.5 mg/dL (7.8-10.44); Carbon Dioxide 23 mmol/L (23-31); Chloride 108 mmol/L (98-107); Glucose 89 mg/dL (80-115); Potassium 3.6 mmol/L (3.5-5.1); Sodium 141 mmol/L (136-145)
[2020-05-14] MEDS: Furosemide 40 MG/4 ML VIAL SLOW IVP SCH (05:47)
[2020-05-14] MEDS ORDERED: Furosemide 40 MG/4 ML VIAL SLOW IVP SCH (06:00)
[2020-05-14] MEDS ORDERED: Potassium Chloride 20 MEQ TAB PO SCH (07:30)
[2020-05-14] MEDS: Ferrous Sulfate 325 MG TAB PO SCH (07:34)
[2020-05-14] MEDS: Sacubitril 49 MG/Valsartan 51 MG TABLET PO SCH (07:34)
[2020-05-14] MEDS: Gabapentin 100 MG CAP PO SCH ×3 (07:34→19:51)
[2020-05-14] MEDS: Zonisamide 100 MG CAP PO SCH ×2 (07:34→19:50)
[2020-05-14] MEDS: Amiodarone 200 MG TAB PO SCH (07:34)
[2020-05-14] MEDS: Carvedilol 6.25 MG TAB PO SCH ×2 (07:34→16:29)
[2020-05-14] MEDS: Aripiprazole 10 MG TAB PO SCH (07:35)
[2020-05-14] MEDS: Furosemide 20 MG TAB PO SCH ×2 (07:43→16:27)
[2020-05-14] MEDS: Levothyroxine Sodium 50 MCG TAB PO SCH (08:35)
[2020-05-14] MEDS ORDERED: Furosemide 40 MG TAB PO SCH (09:00)
[2020-05-14 09:27] LABS: Free T4 (Free Thyroxine) 0.5 ng/dL (0.70-1.48)
[2020-05-14] MEDS: Warfarin Sodium 7.5 MG TAB PO SCH (16:51)
[2020-05-14] MEDS: Enoxaparin Sodium 60 MG/0.6 ML SYRINGE SC SCH (20:53)
[2020-05-15 05:03] LABS: INR-International Normal Ratio 1.8; Prothrombin Time 21.3 sec (12.0-14.7)
[2020-05-15 05:09] LABS: Anion Gap 14 mmol/L (10-20); BUN (Urea Nitrogen) 44 mg/dL (9.8-20.1); Calc. Creatinine Clearance 37 mL/min (70-130); Calcium 8.8 mg/dL (7.8-10.44); Carbon Dioxide 21 mmol/L (23-31); Chloride 109 mmol/L (98-107); Glucose 110 mg/dL (80-115); Sodium 140 mmol/L (136-145)
[2020-05-15] MEDS: Levothyroxine Sodium 50 MCG TAB PO SCH (05:55)
[2020-05-15 07:38] LABS: #Eosinphils 0.1 thou/uL (0.0-0.7); #Lymphocytes 1.2 thou/uL (1.20-3.40); #Monocytes 0.3 thou/uL (0.11-0.59); #Neutrophils 2.3 thou/uL (1.40-6.50); %Basophils 1.1 % (0.0-1.0); %Eosinophils 2.8 % (0.0-10.0); %Lymphocytes 30.5 % (21.0-51.0); %Monocytes 6.8 % (0.0-10.0); %Neutrophils 58.8 % (42.0-75.0); Hemoglobin 9.1 g/dL (12.0-16.0); Mean Corpuscular Hemoglobin 29.9 pg (27.0-31.0); Mean Corpuscular Volume 93.6 fL (78.0-98.0); Mean Platelet Volume 11.2 fL (7.4-10.4); Platelet Count 27 thou/uL (130-400); Red Blood Cell (RBC) Count 3.05 mill/uL (4.20-5.40); White Blood Cell (WBC) Count 3.9 thou/uL (4.8-10.8)
[2020-05-15] MEDS: Sacubitril 49 MG/Valsartan 51 MG TABLET PO SCH (07:50)
[2020-05-15] MEDS: Carvedilol 6.25 MG TAB PO SCH (07:51)
[2020-05-15] MEDS: Amiodarone 200 MG TAB PO SCH (07:51)
[2020-05-15] MEDS: Gabapentin 100 MG CAP PO SCH ×3 (07:51→19:52)
[2020-05-15] MEDS: Furosemide 20 MG TAB PO SCH ×2 (07:51→14:41)
[2020-05-15] MEDS: Ferrous Sulfate 325 MG TAB PO SCH (07:51)
[2020-05-15] MEDS: Zonisamide 100 MG CAP PO SCH ×2 (07:52→19:52)
[2020-05-15] MEDS: Aripiprazole 10 MG TAB PO SCH (07:52)
[2020-05-15] MEDS: Enoxaparin Sodium 60 MG/0.6 ML SYRINGE SC SCH (07:55)
[2020-05-15 10:06] LABS: Iron 30 ug/dL (50-170); Iron Binding Capacity, Total 221 mcg/dL (265-497)
[2020-05-15 10:32] LABS: Ferritin 372.01 ng/mL (10-291)
[2020-05-15] MEDS ORDERED: Folic Acid 1 MG TAB PO SCH ×2 (11:00→11:15)
[2020-05-15 13:20] LABS: Iron 41 ug/dL (50-170); Iron Binding Capacity, Total 235 mcg/dL (265-497)
[2020-05-15] MEDS: Carvedilol 3.125 MG TAB PO SCH (16:26)
[2020-05-15] MEDS ORDERED: Warfarin Sodium 10 MG TAB PO SCH (17:00)
[2020-05-16] MEDS: Levothyroxine Sodium 50 MCG TAB PO SCH (04:45)
[2020-05-16 05:06] LABS: Prothrombin Time 22.7 sec (12.0-14.7)
[2020-05-16 05:22] LABS: Hemoglobin 8.5 g/dL (12.0-16.0); Mean Platelet Volume 11.7 fL (7.4-10.4); Platelet Count 23 thou/uL (130-400); RBC Distribution Width 13.2 % (11.5-14.5); Red Blood Cell (RBC) Count 2.83 mill/uL (4.20-5.40); White Blood Cell (WBC) Count 3.5 thou/uL (4.8-10.8)
[2020-05-16 05:28] LABS: Anion Gap 12 mmol/L (10-20); BUN (Urea Nitrogen) 41 mg/dL (9.8-20.1); Calc. Creatinine Clearance 40 mL/min (70-130); Calcium 8.4 mg/dL (7.8-10.44); Carbon Dioxide 21 mmol/L (23-31); Chloride 111 mmol/L (98-107); Glucose 94 mg/dL (80-115); Potassium 4.1 mmol/L (3.5-5.1); Sodium 140 mmol/L (136-145)
[2020-05-16 06:28] LABS: #Eosinphils 0.1 thou/uL (0.0-0.7); #Lymphocytes 1.1 thou/uL (1.20-3.40); #Monocytes 0.2 thou/uL (0.11-0.59); #Neutrophils 2.1 thou/uL (1.40-6.50); %Basophils 0.5 % (0.0-1.0); %Eosinophils 3.7 % (0.0-10.0); %Lymphocytes 31.1 % (21.0-51.0); %Monocytes 5.8 % (0.0-10.0); Platelet Morphology Comment Appears Decreased
[2020-05-16] MEDS: Aripiprazole 10 MG TAB PO SCH (08:00)
[2020-05-16] MEDS: Zonisamide 100 MG CAP PO SCH (08:00)
[2020-05-16] MEDS: Furosemide 20 MG TAB PO SCH (08:02)
[2020-05-16] MEDS: Carvedilol 3.125 MG TAB PO SCH (08:02)
[2020-05-16] MEDS: Amiodarone 200 MG TAB PO SCH (08:02)
[2020-05-16] MEDS: Ferrous Sulfate 325 MG TAB PO SCH (08:02)
[2020-05-16] MEDS: Gabapentin 100 MG CAP PO SCH (08:02)
[2020-05-16] MEDS ORDERED: Folic Acid 1 MG TAB PO SCH (09:00)
[2020-05-16 11:13] VITALS: BP 115/68; TEMP 97.6
[2020-05-16 12:09] LABS: Mean Corpuscular Volume 93.8 fL (78.0-98.0); Mean Platelet Volume 11.4 fL (7.4-10.4); Platelet Count 22 thou/uL (130-400); RBC Distribution Width 13.2 % (11.5-14.5); Red Blood Cell (RBC) Count 3.32 mill/uL (4.20-5.40); White Blood Cell (WBC) Count 4.7 thou/uL (4.8-10.8)
[2020-05-16] MEDS ORDERED: Warfarin Sodium 7.5 MG TAB PO SCH (17:00)
== END 2020-05-16 14:21 | disposition home or self-care (01) | DRG 808 ==
LOC: ERS 08:38 → ERHOLD 10:56 → 2NO 17:03
PROVIDERS: ADMIT Internal Medicine; ATTEND Family Medicine
PROC: 30233R1 Transfusion of Nonautologous Platelets into Peripheral Vein, Percutaneous Approach (ICD-10-PCS; principal; 2020-05-12)
DX: D61.818 Other pancytopenia (principal); I50.23 Acute on chronic systolic (congestive) heart failure; J96.01 Acute respiratory failure with hypoxia; I21.A1 Myocardial infarction type 2; I13.0 Hypertensive heart and chronic kidney disease with heart failure and stage 1 through stage 4 chronic kidney disease, or unspecified chronic kidney disease; I47.1 Supraventricular tachycardia; G40.909 Epilepsy, unspecified, not intractable, without status epilepticus; D52.9 Folate deficiency anemia, unspecified; E03.9 Hypothyroidism, unspecified; N18.9 Chronic kidney disease, unspecified; Z20.822 Contact with and (suspected) exposure to COVID-19; N18.30 Chronic kidney disease, stage 3 unspecified; E78.5 Hyperlipidemia, unspecified; F41.9 Anxiety disorder, unspecified; F32.9 Major depressive disorder, single episode, unspecified; J45.909 Unspecified asthma, uncomplicated; K76.0 Fatty (change of) liver, not elsewhere classified; Z95.2 Presence of prosthetic heart valve; Z90.710 Acquired absence of both cervix and uterus; Z88.1 Allergy status to other antibiotic agents; Z88.0 Allergy status to penicillin; Z88.2 Allergy status to sulfonamides; Z88.8 Allergy status to other drugs, medicaments and biological substances; Z79.899 Other long term (current) drug therapy; Z79.01 Long term (current) use of anticoagulants
CPT/HCPCS: 0240U; 36415; 36430; 71045; 80048; 80053; 81001; 82553; 82607; 82668; 82728; 82746; 83540; 83550; 83605; 83735; 83880; 84439; 84443; 84481; 84484; 84550; 85025; 85610; 85730; 86850; 86900; 86901; 87040; 88184; 93005; 93306; 93798; J1650; J1940; P9035